=== PATIENT | female | born 1965 | race Caucasian/White ===

== ENCOUNTER 2020-07-11 14:03 | Outpatient (CLI) | payer OTHER, SELFPAY ==
--- NOTE | ~2020-07-11 | US_ITS ---
EXAMINATION: US thyroid DATE: 07/11/2020 14:40 INDICATION: Subclinical hyperthyroidism TECHNIQUE: Multiple ultrasound images of the thyroid were obtained. COMPARISON: None. FINDINGS: The right thyroid lobe measures 5.2 x 1.9 x 1.5 cm. The left thyroid lobe measures 7.4 x 2.9 x 3.7 c m. 3.7 cm solid heterogeneously isoechoic wider than tall nodule with smooth margins and with coarse internal calcifications in the left thyroid lobe (TI-RADS 4, moderately suspicious , FNA if >=1.5 cm , annual followup is >1 cm). There is a 1.7 cm wider than tall predominant solid isoechoic nodule wit h smooth margins and without echogenic foci in the left (TI-RADS 3, mildly suspicious , FNA if >=2.5 cm, annual followup is >1.5 cm). Wider than tall solid hypoechoic TI RADS 4 nodule with ill-defined m argins and without echogenic foci in the deep right thyroid lobe. There are several additional subcen timeter solid hypoechoic and anechoic cystic nodules throughout the left and right thyroid lobes. IMPRESSION: 1. Multinodular goiter. Recommend ultrasound-guided biopsy of the largest 3.7 cm TI RADS 4 left thyro id nodule. Reviewed, dictated and finalized at location A. RACT CHECKER IMPRESSION: 1. Multinodular goiter. Recommend ultrasound-guided biopsy of the largest 3.7 c m TI RADS 4 left thyroid nodule.
== END 2020-07-11 14:04 | disposition home or self-care (01) ==
PROVIDERS: PCP Family Medicine; Visit Provider Family Medicine
DX: E05.80 Other thyrotoxicosis without thyrotoxic crisis or storm (principal); E04.2 Nontoxic multinodular goiter
CPT/HCPCS: 76536

== ENCOUNTER 2020-07-21 12:48 | Outpatient (CLI) | payer OTHER, SELFPAY ==
--- NOTE | ~2020-07-21 | US_ITS ---
EXAMINATION: US FNA w image guidance DATE: 07/21/2020 15:56 INDICATION: Left thyroid nodule TECHNIQUE: A time-out was performed to verify the patient's name, date of , and procedure to be performed . The procedure and its benefits and risks were discussed with the patient. Risks specifically discus sed included bleeding and infection. The patient understood the risks and agreed to proceed. The neck was prepped and draped in the usual sterile manner. 4 mL 1% lidocaine was used for local anesthesia . 6 passes were made with a 25G needle into the lesion. Appropriate needle location was documented with continuous sonographic guidance. The specimens were passed to the engineering technologist in the room. A sterile bandage was applied. There were no immediate complications. FINDINGS: Grayscale ultrasound images demonstrate biopsy needles advanced into a 3.9 cm solid TI RADS 4 nodule at the inferior left thyroid. IMPRESSION: 1. Successful ultrasound-guided fine needle aspiration of a 3.9 cm TI RADS 4 left thyroid nodule. Reviewed, dictated and finalized at location A. ITAL ADMINISTRATOR IMPRESSION: 1. Successful ultrasound-guided fine needle aspiration of a 3.9 cm TI RADS 4 l eft thyroid nodule.
== END 2020-07-21 12:49 | disposition home or self-care (01) ==
LOC: ANHIMG 12:52
PROVIDERS: PCP Family Medicine; Visit Provider Family Medicine
DX: E04.1 Nontoxic single thyroid nodule (principal)
CPT/HCPCS: 10005; 88173; 88305

== ENCOUNTER 2020-07-22 16:57 | Outpatient (CLI) | payer OTHER, SELFPAY ==
--- NOTE | ~2020-07-22 | MM_ITS ---
EXAMINATION: MM screening [facility] BI w gustavo HISTORY: Screening mammogram TECHNIQUE: Craniocaudal and mediolateral oblique 3-D tomosynthesis images were obtained and synthetic 2-D images were generated. CAD analysis was submitted and interpreted. COMPARISON: 04/05/2019, 02/24/2015, 01/10/2014 BREAST PARENCHYMAL COMPOSITION: The breasts are almost entirely fatty. FINDINGS: There is no evidence of suspicious mass, calcification, or architectural distortion to sugg est malignancy in either breast. There has been no suspicious interval change. IMPRESSION: 1. No mammographic evidence of malignancy. 2. Recommend routine screening mammography in one year. BI-RADS Category 1: Negative Reviewed, dictated and finalized at location A. RLINE SUPERVISOR
== END 2020-07-22 16:58 | disposition home or self-care (01) ==
LOC: ANHIMG 17:01
PROVIDERS: PCP Family Medicine; Visit Provider Family Medicine
DX: Z12.31 Encounter for screening mammogram for malignant neoplasm of breast (principal)
CPT/HCPCS: 77063; 77067

== ENCOUNTER 2021-03-21 13:31 | Outpatient (CLI) | payer OTHER, SELFPAY | END 2021-03-21 13:32 | disposition home or self-care (01) | LOC: ANHLAB 13:33 | PROVIDERS: PCP Family Medicine; Visit Provider Family Medicine | DX: K52.9 Noninfective gastroenteritis and colitis, unspecified (principal) | CPT/HCPCS: 87177; 87209; 87324; 89055 ==

== ENCOUNTER 2021-04-29 17:00 | Outpatient (RCR) | payer OTHER, SELFPAY ==
--- NOTE | 2021-03-30 15:00 | PTOPEVAL ---
PHYSICAL THERAPY EVALUATION AND PLAN OF CARE Thank you for referring Rachael Dupont to [facility].? The patient is scheduled to be seen for therapy? 2x/week for 4 weeks. Please review, sign, date and return this plan of care SUSAN. I agree with and certify that the following plan of care is medically necessary. Referring Physician Date Evaluation Outpatient Past Medical History Endocrine History Hx Diabetes Yes Diagnosis left TKA Onset 02/24/21 Subjective Information Rachael is here today 4 weeks s/p Query Text:As Reported By Patient/ left TKA. She states she is Family doing well and that she saw the doctor this morning and he is pleased. She did have a small infection in the infection that is getting better - she is done with antibiotics. Comes into clinic without a cane or walker. States that she has a lot of night pain. States that when she had home therapy she was bending the knee farther than now and she states that she has more swelling now than a couple weeks ago. Self Report Pain Assessment Left Knee(s) Reported Pain Level 5 Pain Description Aching Lowest Pain Intensity 5 Greatest Pain Intensity 10 Pain Score Pain Score 5: Self Report Interventions Used Interventions Used By Clinicians Exercise Pain Relief Interventions Used By Hope Norton Patient Lower Extremity Range of Motion Knee Range of Motion Left Knee Flexion Range of Motion - Active 97 Knee Extension Range of Motion - Active 0 Query Text: Lower Extremity Muscle Strength Testing Hip Strength Left Hip Flexion Strength 4+ Good + Hip Extension Strength 3 Fair Hip Abduction Strength 2+ Poor + Knee Strength Left Knee Extension Strength 3+ Fair + Knee Strength Comments fair isolated quad set Muscle Length Testing Muscle Length Testing Left Hamstring Length -25 Query Text:(90 - 90 Position) Right Hamstring Length -25 Query Text:(90 - 90 Position) Palpation Assessment Palpation Palpation quadriceps is tender to palpate left quadriceps and ITB Gait Assessment Gait Assessment Ambulation Assistive Devices None Weight Bearing Status - Left As Tolerated Weight Bearing Status - Right
--- NOTE | 2021-04-14 12:52 | PCPTNOTE ---
Patient called & cancelled scheduled appointment this date due to being sick.
--- NOTE | 2021-04-17 15:32 | PCPTNOTE ---
Patient called & cancelled scheduled appointment this date due to not feeling well.
--- NOTE | 2021-04-20 15:01 | PCPTNOTE ---
Patient called & cancelled scheduled appointment this date due to having a zoom meeting.
--- NOTE | 2021-04-29 17:35 | PTOPEVAL ---
PHYSICAL THERAPY DISCHARGE NOTE Thank you for referring Rachael Dupont to [facility].? Please review, sign, date and return this plan of care SUSAN. I agree with and certify that the following plan of care is medically necessary. Referring Physician Date Discharge Diagnosis left TKA Onset 02/24/21 Subjective Information Rachael is here today 9 weeks s/p Query Text:As Reported By Patient/ left TKA. She states she is Family doing well. Her knee feels really full. She was able to get up off the floor using the couch and going through half kneeling. Self Report Pain Assessment Left Knee(s) Reported Pain Level 1 Pain Description Soreness Pain Frequency Acute Pain Aggravating Factors Bending Pain Behaviors None Pain Score Pain Score 1: Self Report Interventions Used Interventions Used By Clinicians Exercise,Ice Pain Relief Interventions Used By Elevation,Ice Patient Lower Extremity Range of Motion Knee Range of Motion Left Knee Flexion Range of Motion - Active 115 Knee Extension Range of Motion - Active 0 Query Text: Lower Extremity Muscle Strength Testing Hip Strength Left Hip Flexion Strength 4+ Good + Hip Extension Strength 4- Good - Hip Abduction Strength 3- Fair - Knee Strength Left Knee Flexion Strength 4+ Good + Knee Extension Strength 4+ Good + Stair Climbing Assessment Stair Climbing Assessment Stair Climbing Assistive Devices Railings Number of Steps Climbed (Steps) 4 Number of Repetitions (Repetitions) 2 Technique Alternating Steps Stair Climbing Ability Independent General Exercise General Exercises Side Left Exercise Location Knee Exercise Type Active,Stretching Exercise Description reviewed HEP to encourage Query Text:Record Sets, Reps, strength and ROM of the left Resistance, and Position knee; instructed in HEP as PT Clinical Summary Rachael is a 55 yo female 2 months s/p left TKA. She has met her ROM goals and she performs all functional tasks safely and independently. She does her exercises every day and home and is motivated to continue them. We will d/c PT at this time. PT Services Indicated No Rehabilitation Potential Good Potential Bar
== END 2021-05-01 10:45 | disposition home or self-care (01) ==
LOC: ANHPT 17:00
PROVIDERS: PCP Family Medicine
DX: Z47.1 Aftercare following joint replacement surgery (principal); Z96.652 Presence of left artificial knee joint
CPT/HCPCS: 97110; 97140; 97163

== ENCOUNTER 2021-06-04 20:06 | Emergency (ER) | payer OTHER, SELFPAY ==
--- NOTE | ~2021-06-04 | XR_ITS ---
EXAMINATION: XR hip BI 2V w AP pelvis DATE: 06/05/2021 02:04 INDICATION: Bilateral hip pain after fall TECHNIQUE: AP view the pelvis and two views of each hip were obtained. COMPARISON: None. FINDINGS: Bone alignment is normal. There is no fracture. There is mild osteoarthritis of the hips. P hleboliths are noted in the pelvis. An IUD is also seen in the pelvis. IMPRESSION: 1. No acute osseous abnormality. Reviewed, dictated and finalized at location A. D COIL WINDER
--- NOTE | ~2021-06-04 | XR_ITS ---
EXAMINATION: XR lumbar spine 2-3V DATE: 06/05/2021 02:05 INDICATION: Low back pain TECHNIQUE: Anteroposterior and lateral views of the lumbar spine, and cone-down lateral view of the l umbosacral junction were obtained. COMPARISON: None. FINDINGS: There is no fracture, dislocation, or subluxation. The vertebral body heights are maintaine d. There is mild loss of intervertebral disc space height at L1-2, L4-5, and L5-S1. Small degenerativ e osteophytes project from the anterior endplates of multiple vertebral bodies. There is moderate fac et osteoarthritis of the lower lumbar spine. An IUD is noted. There are phleboliths of the pelvis. IMPRESSION: 1. Mild lumbar spondylosis without acute findings. Reviewed, dictated and finalized at location A. ICAL GENETICIST
--- NOTE | ~2021-06-04 | XR_ITS ---
EXAMINATION: XR ankle LT min 3V DATE: 06/05/2021 02:03 INDICATION: Left ankle pain TECHNIQUE: Anteroposterior, lateral, mortise, and additional oblique view of the ankle were obtained. COMPARISON: None. FINDINGS: Bone alignment is normal. There is no fracture. There is mild osteoarthritis of the ankle a nd midfoot. A plantar calcaneal enthesophyte is noted. IMPRESSION: 1. No acute osseous abnormality. Reviewed, dictated and finalized at location A. MER PURIFICATION OPERATOR
--- NOTE | ~2021-06-04 | XR_ITS ---
EXAMINATION: XR shoulder RT min 2V INDICATION: Right shoulder pain TECHNIQUE: Four views of the right shoulder are submitted. COMPARISON: None FINDINGS: Normal alignment. No fracture there is mild osteoarthritis of the glenohumeral and acromioc lavicular joints.. Glenohumeral and acromioclavicular joint spaces are normal. Soft tissues are unrem arkable. IMPRESSION: 1. No acute osseous abnormality. Reviewed, dictated and finalized at location A. USEMENT EQUIPMENT OPERATOR
--- NOTE | ~2021-06-04 | XR_ITS ---
EXAMINATION: XR shoulder LT min 2V INDICATION: Left shoulder pain TECHNIQUE: Four views of the left shoulder are submitted. COMPARISON: None FINDINGS: Normal alignment. No fracture. Glenohumeral and acromioclavicular joint spaces are normal. Soft tissues are unremarkable. IMPRESSION: 1. No acute osseous abnormality. Reviewed, dictated and finalized at location A. TOR FUELING SUPERVISOR
--- NOTE | ~2021-06-04 | XR_ITS ---
EXAMINATION: XR knee LT 3V DATE: 06/05/2021 02:05 INDICATION: Left knee pain TECHNIQUE: Three views of the left knee were obtained. COMPARISON: 11/12/2015 FINDINGS: There are changes of interval total knee arthroplasty. No fracture is identified. There is a small knee joint effusion. A calcified loose body is also noted. Soft tissues are unremarkable. IMPRESSION: 1. Changes of interval total knee arthroplasty without acute osseous abnormality. Small joint effusio n. Reviewed, dictated and finalized at location A. NEYMAN PLUMBER IMPRESSION: 1. Changes of interval total knee arthroplasty without acute osseous abnormalit y. Small joint effusion.
--- NOTE | ~2021-06-04 | CT_ITS ---
EXAMINATION: CT brain wo con, CT cervical spine wo con EXAM DATE: 06/05/2021 02:04 INDICATION: Fall, left-sided head injury. TECHNIQUE: Spiral CT of the head was performed without contrast. Axial, coronal and sagittal images were reviewed. Spiral CT of the cervical spine was performed without contrast. Axial images were rev iewed. Coronal and sagittal reformatted images were also reviewed. The dose-length product (DLP) fo r this examination was 681.00 (accession [id number]), 548.85 (accession [id number]) mGy-cm. The exposure was tailored according to patient size, and iterative reconstruction (ASIR) was used as additional dose reduction technique. There is no prior study for comparison. FINDINGS: HEAD CT: There is no acute intraparenchymal hemorrhage. No evidence of intraparenchymal brain mass l esion. No evidence of acute infarction. There is no mass effect or midline shift. There is no obstru ctive hydrocephalus suspected. There are no extra-axial collections. There are no acute calvarial f ractures. The orbits are unremarkable. Soft tissue is unremarkable. The visualized sinuses and mas toid air cells are well aerated. CERVICAL CT: Multinodular goiter. There is no evidence of acute cervical fracture. The odontoid proc ess is intact. Pre-dens space is normal. Prevertebral soft tissue is normal. There are no soft tis antonella abnormalities identified. There is no disc space widening or traumatic vertebral body subluxatio n suspected. Advanced upper cervical facet arthropathy. Moderate cervical disc disease. Mild emphyse ma. A detailed level by level evaluation of spondylosis can be added as addendum if requested. IMPRESSION: 1. No acute intracranial findings or cervical fracture. 2. Cervical spondylosis. Reviewed, dictated and finalized at location G. ELET MAKER NOVELTY IMPRESSION: 1. No acute intracranial findings or cervical fracture. 2. Cervical spondylosis.
--- NOTE | ~2021-06-04 | XR_ITS ---
EXAMINATION: XR elbow LT min 3V DATE: 06/05/2021 02:03 INDICATION: Left elbow pain TECHNIQUE: Anteroposterior, two oblique and lateral views of the left elbow were obtained. COMPARISON: None. FINDINGS: Alignment is normal. No fracture or joint effusion. Joint spaces are normal. There is mild osteoarthritis. Soft tissues are unremarkable. IMPRESSION: 1. No acute osseous abnormality. Reviewed, dictated and finalized at location A. R AEROBICS INSTRUCTOR
--- NOTE | ~2021-06-04 | XR_ITS ---
EXAMINATION: XR hand LT min 3V INDICATION: Left hand pain TECHNIQUE: Three views of the left hand are obtained. COMPARISON: None available FINDINGS: There is no fracture, dislocation, or subluxation. There is mild osteoarthritis at several interphalangeal joints. The soft tissues are unremarkable. IMPRESSION: 1. No acute osseous abnormality. Reviewed, dictated and finalized at location A. GENCY SERVICES DISPATCHER
[2021-06-04 20:23] VITALS: BP 133/72; PULSE 87; RESP 17; TEMP 36.2; O2SAT 100
[2021-06-04 22:24] VITALS: BP 113/64; PULSE 86; TEMP 36.8; O2SAT 98
[2021-06-05 01:10] VITALS: BP 111/58; PULSE 99; RESP 18; TEMP 36.2; O2SAT 99
--- NOTE | 2021-06-05 02:29 | ED.GENADULT ---
HPI - General Adult General Chief complaint: Fall Stated complaint: fall with knee pain Time Seen by Provider: 06/05/21 01:12 History of Present Illness HPI narrative: Patient 56-year-old female presents the emergency department with chief complaint of pain over her entire body patient reports she was in a local store ripped over a floor mat and landed on her left side. The patient reports no loss of consciousness but did report that she struck her head reports she has pain in her neck back all on the left side of her body and her arms and legs and also reports pain in her right extremities. The patient states is able to move everything denies deformity denies laceration. Related Data Allergies Allergy/AdvReac Type Severity Reaction Status Date / Time adhesive Allergy Mild Other Verified 06/05/21 01:15 cyclobenzaprine Allergy Unknown RESTLESS Verified 06/05/21 01:15 LEGS Review of Systems Review of Systems: A 10 system review of systems was completed on the patient and is negative except for what is stated in the HPI. Nursing and ancillary documentation was reviewed. Exam Narrative: GENERAL: Well-appearing, well-nourished, and in no acute distress. HEAD: Normocephalic, atraumatic. EYES: PERRLA and EOMI. ENT: Nares clear, no rhinorrhea or epistaxis. Mucous membranes moist. NECK: Supple. There is tenderness to palpation the midline cervical spine CHEST: Clear to auscultation. No respiratory distress. HEART: Regular rate and rhythm. No murmur heard. Normal peripheral pulses. ABDOMEN: Soft, nontender, nondistended, normal active bowel sounds. EXTREMITIES: Normal range of motion. No edema. All extremities are tender to palpation SKIN: Warm, dry, no rash. NEURO: No focal deficits. Alert and oriented x3. PSYCH: Normal mood and affect. Course Course Emergency Course: Left elbow no evidence of fracture Left knee no evidence of fracture Left hand no evidence of fracture Right shoulder no evidence of fracture Lumbar spine no evidence of fracture Hip bilateral no evidence of fracture Ankle left no evidence of fracture Left shoulder no evidence of fracture CT cervical spine negative CT head negative Vital Signs Vital signs: Vital Signs Temperature 36.2 C L 06/04/21 20:23 Pulse Rate 87 06/04/21 20:23 Respiratory Rate 17 06/04/21 20:23 Blood Pressure 133/72 06/04/21 20:23 Pulse Oximetry 100 06/04/21 20:23 Temperature 36.2 C L 06/05/21 01:10 Pulse Rate 88 06/05/21 02:36 Respiratory Rate 16 06/05/21 02:36 Blood Pressure 118/46 L 06/05/21 02:36 Pulse Oximetry 98 06/05/21 02:36 Medical Decision Making Vital Signs Vital Signs: Vital Signs Temperature 36.2 C L 06/04/21 20:23 Pulse Rate 87 06/04/21 20:23 Respiratory Rate 17 06/04/21 20:23 Blood Pressure 133/72 06/04/21 20:23 Pulse Oximetry 100 06/04/21 20:23 Temperature 36.2 C L 06/05/21 01:10 Pulse Rate 88 06/05/21 02:36 Respiratory Rate 16 06/05/21 02:36 Blood Pressure 118/46 L 06/05/21 02:36 Pulse Oximetry 98 06/05/21 02:36 Discharge Plan Discharge Clinical Impression: Fall from ground level Contusion of left upper extremity Qualifiers: Encounter type: initial encounter Qualified Code(s): S40.022A - Contusion of left upper arm, initial encounter Contusion of left lower limb Qualifiers: Encounter type: initial encounter Qualified Code(s): S80.12XA - Contusion of left lower leg, initial encounter Head injury Qualifiers: Encounter type: initial encounter Qualified Code(s): S09.90XA - Unspecified injury of head, initial encounter Patient Disposition: Home, Self-Care Condition: Stable Instructions: Antibiotic Form, Concussion (ED), Head Injury (ED) Follow-up/Referrals: Bradley,Emanuel Singleton MD [Primary Care Provider] - Time of Disposition: 03:20
[2021-06-05 02:36] VITALS: BP 118/46; PULSE 88; RESP 16; O2SAT 98
[2021-06-05 03:52] VITALS: BP 150/91; PULSE 103; RESP 16; O2SAT 100
== END 2021-06-05 03:54 | disposition home or self-care (01) ==
PROVIDERS: Emergency Provider Emergency Medicine; PCP Family Medicine
DX: S09.90XA Unspecified injury of head, initial encounter (principal); S80.12XA Contusion of left lower leg, initial encounter; S40.022A Contusion of left upper arm, initial encounter; M47.812 Spondylosis without myelopathy or radiculopathy, cervical region; Z96.652 Presence of left artificial knee joint; M47.816 Spondylosis without myelopathy or radiculopathy, lumbar region; W18.09XA Striking against other object with subsequent fall, initial encounter
CPT/HCPCS: 70450; 72100; 72125; 73030; 73080; 73130; 73521; 73562; 73610; 99284

== ENCOUNTER 2023-04-15 17:37 | Emergency (ER) | payer OTHER, SELFPAY ==
[2023-04-15 18:02] VITALS: BP 134/66; PULSE 88; RESP 18; TEMP 36.4; O2SAT 99
--- NOTE | 2023-04-15 18:16 | ED.URI ---
HPI - URI/Sore Throat General Chief Complaint: Upper Respiratory Infection Stated Complaint: Sore Throat, Cough, Congestion Time Seen by Provider: 04/15/23 18:16 Source: patient Mode of arrival: ambulatory Limitations: no limitations History of Present Illness HPI Narrative: 58-year-old female presents with complaint of nasal congestion, runny nose, sore throat and cough starting yesterday. Afebrile. Positive chills. Denies body aches. No chest pain or shortness of breath. All systems reviewed and negative except as noted above. Related Data Home Medications Medication Instructions Recorded Confirmed atorvastatin 20 mg tablet 20 mg PO DAILY 04/15/23 04/15/23 empagliflozin 25 mg tablet 25 mg PO DAILY 04/15/23 04/15/23 (Jardiance) fluoxetine 20 mg capsule 20 mg PO DAILY 04/15/23 04/15/23 hydrocodone 10 mg-acetaminophen 1 tablet PO QID 04/15/23 04/15/23 325 mg tablet levonorgestrel 21 mcg/24 hours (8 See Rx Instructions .Route .COMPLEX 04/15/23 04/15/23 yrs) 52 mg intrauterine device (Mirena) lisinopril 2.5 mg tablet 2.5 mg PO DAILY 04/15/23 04/15/23 metformin 1,000 mg tablet 1,000 mg PO BID 04/15/23 04/15/23 phentermine 37.5 mg capsule 37.5 mg PO DAILY 04/15/23 04/15/23 pregabalin 150 mg capsule 150 mg PO DAILY 04/15/23 04/15/23 ropinirole 1 mg tablet 1 mg PO TID 04/15/23 04/15/23 Allergies Allergy/AdvReac Type Severity Reaction Status Date / Time cyclobenzaprine AdvReac Intermediate RESTLESS Verified 04/15/23 17:42 LEGS adhesive AdvReac Mild Blister Verified 04/15/23 17:42 Review of Systems Review of Systems: CONSTITUTIONAL: Denies fever, chills, or sweats. EYES: Denies visual changes, redness, or discharge. ENT: Reports rhinorrhea, congestion, sore throat. Denies otalgia. CARDIOVASCULAR: Denies chest pain, palpitations, or edema. RESPIRATORY: reports cough. Denies dyspnea. GASTROINTESTINAL: Denies abdominal pain, nausea, vomiting, or diarrhea. GENITOURINARY: Denies dysuria or hematuria. SKIN: Denies rash or itching. MUSCULOSKELETAL: Denies back pain, joint pain, or myalgia. NEUROLOGIC: Denies headache, numbness, or weakness. PSYCHIATRIC: Denies anxiety or depression. All other systems reviewed are negative, except as documented in HPI. PMFSH Comments At time of signature, agree with nursing past medical, surgical, social and family history. There is no relevant family history pertinent to the presenting complaint. Exam Narrative: GENERAL: This is a well-nourished, well-developed patient, in no apparent distress. HEAD: normocephalic, atraumatic. EYES: PERRL. Sclera clear/white. Vision is grossly intact. EARS: External ears normal, auditory canals clear and without drainage, TMs normal without perforation. Hearing grossly intact. NOSE: External nose normal with no obvious nasal discharge, nares without redness, no rhinorrhea. THROAT: Mucous membranes moist, erythema to posterior pharynx without swelling. No exudates. NECK: Neck supple, non-tender without lymphadenopathy, masses or thyromegaly. CARDIOVASCULAR: Regular rate and rhythm without murmurs, gallops, or rubs. RESPIRATORY: Clear to auscultation. Breath sounds equal bilaterally. No wheezes, rales, or rhonchi. SKIN: warm, Dry, intact with no suspicious lesions or rash, good texture and turgor. NEURO: awake, alert, and oriented to person, place and time. There were no obvious focal neurologic abnormalities. EXTREMITIES: No joint tenderness, effusion, or edema noted. Course Course Level of Care: Express Care Visit Vital Signs Vital signs: Vital Signs Temperature 36.4 C L 04/15/23 18:02 Pulse Rate 88 04/15/23 18:02 Respiratory Rate 18 04/15/23 18:02 Blood Pressure 134/66 04/15/23 18:02 Pulse Oximetry 99 04/15/23 18:02 Oxygen Delivery Room Air 04/15/23 18:02 Temperature 36.4 C L 04/15/23 18:02 Pulse Rate 88 04/15/23 18:02 Respiratory Rate 18 04/15/23 18:02 Blood Pressure 134/66
== END 2023-04-15 18:43 | disposition home or self-care (01) ==
PROVIDERS: Emergency Provider Nurse Practitioner Family; PCP Family Medicine
DX: J06.9 Acute upper respiratory infection, unspecified (principal); R05.9 Cough, unspecified; Z20.822 Contact with and (suspected) exposure to COVID-19; E78.00 Pure hypercholesterolemia, unspecified; I10 Essential (primary) hypertension; Z98.84 Bariatric surgery status; K21.9 Gastro-esophageal reflux disease without esophagitis; M17.0 Bilateral primary osteoarthritis of knee; M79.7 Fibromyalgia; G25.81 Restless legs syndrome; E11.9 Type 2 diabetes mellitus without complications; Z79.84 Long term (current) use of oral hypoglycemic drugs
CPT/HCPCS: 87081; 87426; 87880; 99213; C9803; G0463

== ENCOUNTER 2023-05-29 12:58 | Emergency (ER) | payer OTHER, SELFPAY ==
--- NOTE | ~2023-05-29 | XR_ITS ---
EXAM: XR foot RT min 3V DATE: 05/29/2023 14:50 HISTORY: trauma,hit foot on furniture/most pain 5th toe 5th metatasal . COMPARISON: None available. FINDINGS: Normal mineralization. Oblique, nondisplaced, extra-articular fracture of the proximal rig ht fifth phalange, lateral view limited by overlying anatomy. No lytic or blastic lesion. Mild scatte red degenerative changes. Achilles and plantar enthesopathy No erosion or periosteal change. Soft tis antonella swelling over the fracture site. IMPRESSION: Oblique, nondisplaced, extra articular fracture of the proximal right fifth phalange. Reviewed, dictated and finalized at location K. 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
[2023-05-29 14:30] VITALS: BP 137/54; PULSE 93; RESP 18; TEMP 35.9; O2SAT 100
--- NOTE | 2023-05-29 15:30 | ED.GENADULT ---
HPI - General Adult General Chief complaint: Extremity Injury, Lower Stated complaint: Rt Foot Pain Source: patient Mode of arrival: ambulatory Limitations: no limitations History of Present Illness HPI narrative: Patient presents for evaluation of an injury to the right foot. She states she bumped her right foot into a couch two nights ago. She has experienced pain, swelling and redness in the 5th digit of that foot since that time. She rates her pain as 10/10 in severity. She is able to bear weight and walking actually some what improves her pain. No paresthesias or loss of ROM. She is diabetic. She does not have underlying neuropathy. She is adherent to her metformin and jardiance. She receives routine prescriptions for hydrocodone to treat her fibromyalgia. Related Data Home Medications Medication Instructions Recorded Confirmed atorvastatin 20 mg tablet 20 mg PO DAILY 04/15/23 05/29/23 empagliflozin 25 mg tablet 25 mg PO DAILY 04/15/23 05/29/23 (Jardiance) fluoxetine 20 mg capsule 20 mg PO DAILY 04/15/23 05/29/23 hydrocodone 10 mg-acetaminophen 1 tablet PO QID 04/15/23 05/29/23 325 mg tablet levonorgestrel 21 mcg/24 hours (8 See Rx Instructions .Route .COMPLEX 04/15/23 05/29/23 yrs) 52 mg intrauterine device (Mirena) lisinopril 2.5 mg tablet 2.5 mg PO DAILY 04/15/23 05/29/23 metformin 1,000 mg tablet 1,000 mg PO BID 04/15/23 05/29/23 phentermine 37.5 mg capsule 37.5 mg PO DAILY 04/15/23 05/29/23 pregabalin 150 mg capsule 150 mg PO DAILY 04/15/23 05/29/23 ropinirole 1 mg tablet 1 mg PO TID 04/15/23 05/29/23 Allergies Allergy/AdvReac Type Severity Reaction Status Date / Time cyclobenzaprine AdvReac Intermediate RESTLESS Verified 05/29/23 14:34 LEGS adhesive AdvReac Mild Blister Verified 05/29/23 14:34 Review of Systems Review of Systems: CONSTITUTIONAL: Denies fever, chills, or sweats. EYES: Denies visual changes, redness, or discharge. ENT: Denies rhinorrhea, congestion, sore throat, or otalgia. CARDIOVASCULAR: Denies chest pain, palpitations, or edema. RESPIRATORY: Denies cough or dyspnea. GASTROINTESTINAL: Denies abdominal pain, nausea, vomiting, or diarrhea. GENITOURINARY: Denies dysuria or hematuria. SKIN: Reports redness in fifth digit of right foot. MUSCULOSKELETAL:Reports pain and swelling in 5th digit of right foot NEUROLOGIC: Denies headache, numbness, dizziness, or weakness. PSYCHIATRIC: Denies anxiety or depression. [facility] Past Medical History Medical History Diabetes Fibromyalgia Surgical History Surgical History No pertinent past surgical history Family History Family History Mother Family history non-contributory Social History Social History Gender identity (if verbalized by the patient): Female Spiritual care concerns: No Exam Narrative: GENERAL: Well-appearing, well-nourished, and in no acute distress. HEAD: Normocephalic, atraumatic. EYES: PERRLA and EOMI. ENT: Nares clear, no rhinorrhea or epistaxis. Mucous membranes moist. Oropharynx without tonsillar hypertrophy exudate or other lesions. Bilateral TMs pearly saba nonbulging NECK: Supple. No adenopathy or masses. No carotid bruits or JVD CHEST: Clear to auscultation. No respiratory distress. No wheezes rales or rhonchi HEART: Regular rate and rhythm. No murmur heard. Normal peripheral pulses. ABDOMEN: Soft, nontender, nondistended, normal active bowel sounds. EXTREMITIES: There is swelling noted to fifth digit of right foot. Fifth digit of right foot is tender to palpation. SKIN: There is erythema to fifth digit of right foot. Skin is warm, dry, no rash. NEURO: No focal deficits. Alert and oriented x3. PSYCH: Normal mood and affect. Course Cou
== END 2023-05-29 15:38 | disposition home or self-care (01) ==
PROVIDERS: Emergency Provider Nurse Practitioner; PCP Family Medicine
DX: S92.514A Nondisplaced fracture of proximal phalanx of right lesser toe(s), initial encounter for closed fracture (principal); W22.03XA Walked into furniture, initial encounter; E11.9 Type 2 diabetes mellitus without complications
CPT/HCPCS: 73630; 99214; G0463

== ENCOUNTER 2023-06-14 20:45 | Emergency (ER) | payer OTHER, SELFPAY ==
--- NOTE | ~2023-06-14 | CT_ITS ---
Non-contrast CT scan of the Pelvis Clinical indication: Sacral pain, trauma Technique: 2.5 mm axial scans were obtained through the pelvis without intravenous or oral contrast. Dose reduction technique was used on this scan by utilizing automated exposure control and iterative reconstruction technique. The dose-length product (DLP) was 1019.01 mGy-cm. Findings: Urinary bladder unremarkable. No pelvic mass seen. No ascites. Visualized bowel loops are u nremarkable. No pelvic lymphadenopathy identified. No fracture or dislocation seen. Osseous alignment is anatomic. There is moderate facet arthropathy a t L4-L5 and L5-S1. Impression: No acute abnormality seen. Facet arthropathy at L4-L5 and L5-S1. Reviewed, dictated and finalized at location . 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 Facet arthropathy at L4-L5 and L5-S1.
--- NOTE | ~2023-06-14 | XR_ITS ---
EXAMINATION: XR sacrum coccyx min 2V DATE: 06/14/2023 21:20 INDICATION: Sacrococcygeal pain. Fall. TECHNIQUE: 3 views of the sacrum and coccyx were obtained. COMPARISON: Pelvis and hip radiograph 06/05/21 FINDINGS: There is 3 mm anterolisthesis of L4 on L5. There is mild lumbar spondylosis. There is mild osteoarthritis of the hips. There is mild osteoarthritis of the sacroiliac joints. IMPRESSION: 1. No fracture. Reviewed, dictated and finalized at location E. NEER PROCESS IMPRESSION: 1. No fracture.
[2023-06-14 20:55] VITALS: BP 129/62; PULSE 101; RESP 18; TEMP 36.7; O2SAT 100
[2023-06-15 00:15] VITALS: BP 119/72; PULSE 95; RESP 17; O2SAT 100
--- NOTE | 2023-06-15 00:25 | ED.FALL ---
HPI - Fall General Chief Complaint: Fall Stated Complaint: fall, tailbone pain Time Seen by Provider: 06/14/23 23:28 Source: patient Limitations: no limitations History of Present Illness HPI Narrative: Patient is a 58-year-old female presents to the emergency department complaining of a fall with resultant pain in her tailbone. Patient states she fell around 2:00 p.m. today while getting into her truck she stepped on the railing and then slipped and fell backwards landing on her buttock and hitting the back of her head. Patient denies loss of consciousness or use of blood thinners. Patient denies any significant pain in her head. Patient states that she is having pain in her tailbone since the injury for which she took a [place] is only a slight relief. Patient denies urinary incontinence, stool incontinence, alcohol use, illicit drug use, nausea, vomiting, numbness, weakness, paresthesias. Patient admits to being ambulatory since the event with some discomfort in her sacrum when she ambulates. Related Data Home Medications Medication Instructions Recorded Confirmed atorvastatin 20 mg tablet 20 mg PO DAILY 04/15/23 05/29/23 empagliflozin 25 mg tablet 25 mg PO DAILY 04/15/23 05/29/23 (Jardiance) fluoxetine 20 mg capsule 20 mg PO DAILY 04/15/23 05/29/23 hydrocodone 10 mg-acetaminophen 1 tablet PO QID 04/15/23 05/29/23 325 mg tablet levonorgestrel 21 mcg/24 hours (8 See Rx Instructions .Route .COMPLEX 04/15/23 05/29/23 yrs) 52 mg intrauterine device (Mirena) lisinopril 2.5 mg tablet 2.5 mg PO DAILY 04/15/23 05/29/23 metformin 1,000 mg tablet 1,000 mg PO BID 04/15/23 05/29/23 phentermine 37.5 mg capsule 37.5 mg PO DAILY 04/15/23 05/29/23 pregabalin 150 mg capsule 150 mg PO DAILY 04/15/23 05/29/23 ropinirole 1 mg tablet 1 mg PO TID 04/15/23 05/29/23 Allergies Allergy/AdvReac Type Severity Reaction Status Date / Time cyclobenzaprine AdvReac Intermediate RESTLESS Verified 06/14/23 21:03 LEGS adhesive AdvReac Mild Blister Verified 06/14/23 21:03 Review of Systems Review of Systems: A 10 system review of systems was completed on the patient and is negative except for what is stated in the HPI. Nursing and ancillary documentation was reviewed. PMFSH Past Medical History Medical History Diabetes Fibromyalgia Surgical History Surgical History No pertinent past surgical history Family History Family History Mother Family history non-contributory Social History Social History Gender identity (if verbalized by the patient): Female Spiritual care concerns: No Comments At time of signature, I have reviewed and agree with nursing past medical, surgical, social and family history unless otherwise noted. Please see the nursing chart for further information. There is no relevant family history pertinent to the presenting complaint. Exam Narrative: CONST: No acute distress. Well nourished. HENMT: Head is normocephalic and atraumatic. Moist mucous membranes. No posterior oropharynx erythema. EYES: No conjunctival icterus, injection, or pallor. PERRL. NECK: No meningeal signs. RESP: Able to speak in full sentences. Normal respiratory effort. CTAB. CARDIO: Regular rate. Regular rhythm. 2+ DP and radial pulses bilaterally. GI: Nondistended. No tenderness to palpation. Soft. : No CVA tenderness to palpation. SKIN: No rashes or lesions noted on exposed skin. NEURO: Oriented x3. Moves all extremities. No focal neurological deficits. EXTREM/MSK/BACK: No pedal edema. Mild tenderness to palpation over the midline of the sacrum without overlying skin changes. No midline lumbar or thoracic or cervical vertebral tenderness palpation or step-offs. PSYCH: Normal affect
[2023-06-15] MEDS: KETOROLAC 30 MG/ML VIAL (*BKC) 15 MG IM (01:13)
[2023-06-15 02:00] VITALS: BP 119/78; PULSE 90; RESP 16; O2SAT 100
[2023-06-15 04:45] VITALS: BP 122/79; PULSE 94; RESP 18; O2SAT 100
== END 2023-06-15 04:48 | disposition home or self-care (01) ==
PROVIDERS: Emergency Provider Student in an Organized Health Care Education/Training Program; PCP Family Medicine
DX: S30.0XXA Contusion of lower back and pelvis, initial encounter (principal); E11.9 Type 2 diabetes mellitus without complications; M79.7 Fibromyalgia; Z97.5 Presence of (intrauterine) contraceptive device; Z79.84 Long term (current) use of oral hypoglycemic drugs; W17.89XA Other fall from one level to another, initial encounter
CPT/HCPCS: 72192; 72220; 96372; 99284; J1885

== ENCOUNTER 2023-09-19 15:30 | Emergency (ER) | payer OTHER, SELFPAY ==
[2023-09-19 15:45] VITALS: BP 116/55; PULSE 70; RESP 18; TEMP 36.7; O2SAT 98
[2023-09-19 15:47] VITALS: BP 116/55; PULSE 70; RESP 18; TEMP 36.7; O2SAT 98
--- NOTE | 2023-09-19 15:54 | ED.URI ---
HPI - URI/Sore Throat General Chief Complaint: Upper Respiratory Infection Stated Complaint: Upper Respiratory Time Seen by Provider: 09/19/23 15:54 Source: patient and RN notes reviewed Mode of arrival: ambulatory Limitations: no limitations History of Present Illness HPI Narrative: 58-year-old female presents with concern for sinus pain and pressure, swollen glands, sore throat, headache, cough and fatigue that started yesterday. She has taken cold medicine without relief. She denies fever. Reports her grandchild at similar symptoms recently was diagnosed with a virus MD elicited complaint: cough and sinus pain Related Data Home Medications Medication Instructions Recorded Confirmed atorvastatin 20 mg tablet 20 mg PO DAILY 04/15/23 09/19/23 empagliflozin 25 mg tablet 25 mg PO DAILY 04/15/23 09/19/23 (Jardiance) fluoxetine 20 mg capsule 20 mg PO DAILY 04/15/23 09/19/23 hydrocodone 10 mg-acetaminophen 1 tablet PO QID 04/15/23 09/19/23 325 mg tablet lisinopril 2.5 mg tablet 2.5 mg PO DAILY 04/15/23 09/19/23 metformin 1,000 mg tablet 1,000 mg PO BID 04/15/23 09/19/23 phentermine 37.5 mg capsule 37.5 mg PO DAILY 04/15/23 09/19/23 pregabalin 150 mg capsule 150 mg PO DAILY 04/15/23 09/19/23 ropinirole 1 mg tablet 1 mg PO TID 04/15/23 09/19/23 Allergies Allergy/AdvReac Type Severity Reaction Status Date / Time cyclobenzaprine AdvReac Intermediate RESTLESS Verified 09/19/23 15:45 LEGS adhesive AdvReac Mild Blister Verified 09/19/23 15:45 Review of Systems Review of Systems: CONSTITUTIONAL: Report malaise. Denies chills, sweats, or fever. EYES: Denies visual changes, redness, or discharge. ENT: Reports rhinorrhea, congestion, sinus pain, otalgia and sore throat. CARDIOVASCULAR: Denies chest pain, palpitations, or edema. RESPIRATORY: Reports cough. Denies dyspnea. GASTROINTESTINAL: Denies abdominal pain, nausea, vomiting, diarrhea SKIN: Denies rash or itching. MUSCULOSKELETAL: Denies myalgia. NEUROLOGIC: Reports headache. All systems reviewed & are unremarkable except as noted in HPI and below PMFSH Past Medical History Medical History Diabetes Fibromyalgia Surgical History Surgical History No pertinent past surgical history Family History Family History Mother Family history non-contributory Social History Social History Gender identity (if verbalized by the patient): Female Spiritual care concerns: No Comments At time of signature, agree with nursing past medical, surgical, social and family history. There is no relevant family history pertinent to the presenting complaint Exam Narrative: GENERAL: Well-appearing, well-nourished, and in no acute distress. HEAD: Normocephalic EYES: PERRLA, conjunctivae clear ENT: Nares clear, turbinates edematous and erythematous, clear discharge. Mucous membranes moist. TM pearly saba with sharp light reflex bilaterally; no tragal tenderness. Oropharynx not erythematous without lesions. Tonsils not enlarged and without exudate, no drooling, no hoarseness, no trismus, uvula midline. NECK: Supple. No lymphadenopathy CHEST: Clear to auscultation, breath sounds equal. No wheezing, rhonchi, rales, or stridor. No respiratory distress, speaks in full sentences. HEART: Regular rate and rhythm. No murmur heard. SKIN: Warm, dry, no rash. NEURO: Alert and oriented x3. PSYCH: Normal mood and affect Course Course Emergency Course: Patient is aware of diagnosis, understands and agrees to treatment plan. Anticipatory guidance given. Patient agrees to follow-up as directed and is aware of reasons to seek care at the emergency department. Portions of this record may have been created with voice recognition software Level
== END 2023-09-19 16:15 | disposition home or self-care (01) ==
PROVIDERS: Emergency Provider Nurse Practitioner; PCP Family Medicine
DX: J06.9 Acute upper respiratory infection, unspecified (principal); E11.9 Type 2 diabetes mellitus without complications; Z79.84 Long term (current) use of oral hypoglycemic drugs; M79.7 Fibromyalgia
CPT/HCPCS: 99213; G0463

== ENCOUNTER 2023-10-07 09:19 | Emergency (ER) | payer OTHER, SELFPAY ==
[2023-10-07 10:11] VITALS: BP 117/62; PULSE 87; RESP 18; TEMP 36.3; O2SAT 100
--- NOTE | 2023-10-07 11:26 | ED.URI ---
HPI - URI/Sore Throat General Chief Complaint: Upper Respiratory Infection Stated Complaint: bilateral ear pain,sorethroat Source: patient and RN notes reviewed Mode of arrival: ambulatory Limitations: no limitations History of Present Illness HPI Narrative: 58-year-old female with a history of diabetes presented for complaint of sore throat, gland swelling, cough and bilateral ear pain over the past few days. Denies shortness of breath, wheezing, nausea, vomiting, diarrhea, fevers or chills. Granddtr with similar symptoms. MD elicited complaint: cough Related Data Home Medications Medication Instructions Recorded Confirmed atorvastatin 20 mg tablet 20 mg PO DAILY 04/15/23 10/07/23 empagliflozin 25 mg tablet 25 mg PO DAILY 04/15/23 10/07/23 (Jardiance) fluoxetine 20 mg capsule 20 mg PO DAILY 04/15/23 10/07/23 hydrocodone 10 mg-acetaminophen 1 tablet PO QID 04/15/23 10/07/23 325 mg tablet lisinopril 2.5 mg tablet 2.5 mg PO DAILY 04/15/23 10/07/23 metformin 1,000 mg tablet 1,000 mg PO BID 04/15/23 10/07/23 phentermine 37.5 mg capsule 37.5 mg PO DAILY 04/15/23 10/07/23 pregabalin 150 mg capsule 150 mg PO DAILY 04/15/23 10/07/23 ropinirole 1 mg tablet 1 mg PO TID 04/15/23 10/07/23 promethazine-DM 6.25 mg-15 mg/5 mL 5 ml PO Q4-6H cough 10/07/23 10/07/23 oral syrup Allergies Allergy/AdvReac Type Severity Reaction Status Date / Time cyclobenzaprine AdvReac Intermediate RESTLESS Verified 10/07/23 10:34 LEGS adhesive AdvReac Mild Blister Verified 10/07/23 10:34 Review of Systems Review of Systems: CONSTITUTIONAL: Denies malaise, chills, sweats, fever EYES: Denies visual changes, redness, or discharge ENT: Reports rhinorrhea, congestion, otalgia, sore throat CARDIOVASCULAR: Denies chest pain, palpitations, edema RESPIRATORY: Reports cough, post nasal drainage. Denies dyspnea GASTROINTESTINAL: Denies abdominal pain, nausea, vomiting, diarrhea SKIN: Denies rash or itching MUSCULOSKELETAL: Denies myalgia NEUROLOGIC: Denies headache [facility] Past Medical History Medical History Diabetes Fibromyalgia Surgical History Surgical History No pertinent past surgical history Family History Family History Mother Family history non-contributory Social History Social History Gender identity (if verbalized by the patient): Female Spiritual care concerns: No Exam Narrative: GENERAL: well-appearing, nontoxic no acute distress. HEAD: Normocephalic EYES: PERRLA, conjunctivae clear ENT: Mucous membranes moist. TMs pearly saba with dull light reflex bilaterally; no tragal tenderness. Oropharynx not erythematous without lesions or exudate, no drooling, no hoarseness, no trismus, uvula midline. No tripod positioning, muffled voice, soft palate or pharyngeal wall bulging NECK: Supple. No lymphadenopathy CHEST: Clear to auscultation, breath sounds equal. HEART: Regular rate and rhythm. No murmur heard. SKIN: Warm, dry, no rash. NEURO: Alert and oriented x3. PSYCH: Normal mood and affect Course Course Emergency Course: Patient is aware of diagnosis, understands and agrees to treatment plan. Anticipatory guidance given. Patient agrees to follow-up as directed and is aware of reasons to seek care at the emergency department. Portions of this record may have been created with voice recognition software Level of Care: Express Care Visit Vital Signs Vital signs: Vital Signs Temperature 97.3 F L 10/07/23 10:11 Pulse Rate 87 10/07/23 10:11 Respiratory Rate 18 10/07/23 10:11 Blood Pressure 117/62 10/07/23 10:11 Pulse Oximetry 100 10/07/23 10:11 Oxygen Delivery Room Air 10/07/23 10:11 Temperature 97.3 F L 10/07/23 10:11 Pulse Rate 87 10/07/23 10:11 Respi
== END 2023-10-07 11:54 | disposition home or self-care (01) ==
PROVIDERS: Emergency Provider Nurse Practitioner Family; PCP Family Medicine
DX: J06.9 Acute upper respiratory infection, unspecified (principal); E11.9 Type 2 diabetes mellitus without complications; Z79.84 Long term (current) use of oral hypoglycemic drugs; Z20.822 Contact with and (suspected) exposure to COVID-19
CPT/HCPCS: 87081; 87426; 87804; 87880; 99213; G0463

== ENCOUNTER 2024-04-05 14:42 | Emergency (ER) | payer OTHER, SELFPAY ==
--- NOTE | 2024-04-05 14:45 | ED.FEMALEGU ---
HPI - Female Genitourinary General Chief complaint: Urogenital-Female Stated complaint: possible UTI Time Seen by Provider: 04/05/24 14:45 Source: patient Mode of arrival: ambulatory Limitations: no limitations History of Present Illness HPI Narrative: Patient is a 58-year-old female who presents with 4 days of burning with urination, right low back pain and headache. Denies any fever, chills, nausea, vomiting, diarrhea. Has been taking [id number] azo. History of UTI MD elicited complaint: dysuria Related Data Home Medications Medication Instructions Recorded Confirmed atorvastatin 20 mg tablet 20 mg PO DAILY 04/15/23 02/29/24 empagliflozin 25 mg tablet 25 mg PO DAILY 04/15/23 02/29/24 (Jardiance) fluoxetine 20 mg capsule 20 mg PO DAILY 04/15/23 02/29/24 hydrocodone 10 mg-acetaminophen 1 tablet PO QID 04/15/23 02/29/24 325 mg tablet lisinopril 2.5 mg tablet 2.5 mg PO DAILY 04/15/23 02/29/24 metformin 1,000 mg tablet 1,000 mg PO BID 04/15/23 02/29/24 phentermine 37.5 mg capsule 37.5 mg PO DAILY 04/15/23 02/29/24 pregabalin 150 mg capsule 150 mg PO DAILY 04/15/23 02/29/24 ropinirole 1 mg tablet 1 mg PO TID 04/15/23 02/29/24 semaglutide 7 mg tablet (Rybelsus) 7 mg PO DAILY 02/15/24 02/29/24 Allergies Allergy/AdvReac Type Severity Reaction Status Date / Time cyclobenzaprine AdvReac Intermediate RESTLESS Verified 02/15/24 14:30 LEGS adhesive AdvReac Mild Blister Verified 02/15/24 14:30 Review of Systems Review of Systems: All systems reviewed & are unremarkable except as noted in HPI and below Constitutional: Constitutional: Denies chills, Denies fever(s), Denies headache(s), Denies malaise and Denies weakness Eyes: Eyes: Denies change in vision, Denies eye discharge and Denies irritation ENT: Denies otalgia, Denies headache(s), Denies nasal congestion, Denies nasal discharge, Denies sinus pain and Denies sore throat Cardiovascular: Cardiovascular: Denies chest pain, Denies edema, Denies palpitations and Denies dyspnea Respiratory: Respiratory: Denies cough and Denies dyspnea Gastrointestinal: Gastrointestinal: Denies abdominal pain, Denies diarrhea, Denies nausea and Denies vomiting Genitourinary: Genitourinary: Denies hematuria, Reports nocturia, Reports dysuria, Reports flank pain and Reports urinary urgency Musculoskeletal: Musculoskeletal: Denies back pain and Denies numbness Integumentary/Breasts: Skin/Breast: Denies pruritus and Denies rash Neurologic: Denies headache(s), Denies numbness and Denies weakness Psychiatric: Psychiatric: Reports no additional psychiatric complaints Endocrine: Endocrine: Denies palpitations PMFSH Past Medical History Medical History Diabetes Fibromyalgia Surgical History Surgical History No pertinent past surgical history Family History Family History Mother Family history non-contributory Social History Social History Smoking status: Current every day smoker Second hand tobacco smoke exposure: Yes Alcohol intake: never Substance use: never Substance use type: does not use Do You Feel Safe in your Home?: Yes Lack of Transportation: No Lack of Food: Never True Current Housing: I Have Housing Concerned About Future Housing: No Difficulty Paying Gas/Electric Bills: No Difficulty Paying for Meds: No Currently Unemployed: No Education: High School Diploma/GED Difficulty w/ Childcare or Family Care: No Living arrangements: with family Occupation/Education: unemployed Gender identity (if verbalized by the patient): Female Spiritual care concerns: No Comments At time of signature, agree with nursing past medical, surgical, social and family history. There is no relevant family history pertinent to the presenting complaint. Exam Const: General: cooperative, healthy appearing, comfortable, no acute distress and well nourished Nutritional Appearance: well nourished Orientation/consciousness: patient oriented x3 HENMT: Head: normocephalic and atraumatic Ears: external ears normal Face/Nose/Sinus: Normal external nose present, Normal nares present and normal facial exam Face and sinus: normal facial exam Eyes: General: appearance normal, both eyes and all related structures Pupils: Equal, round and reactive pupils present EOM: EOMs intact bilaterally Neck: Neck: normal visual inspection, full ROM and supple Chest: Chest palpation & inspection: normal inspection of the chest Resp: Effort & Inspection: normal respiratory effort and able to speak in complete sentences Cardio: Rate: regular rate Rhythm: regular rhythm GI: Inspection: normal to inspection GI Palp: No abdominal tenderness and Yes Soft to palpation : General: Yes no CVA tenderness Back/Spine/Pelvis: Back: no CVA tenderness Skin: General skin exam: normal color and no rashes or lesions noted Neuro: General: patient oriented x3 and moves all extremities Cranial nerves: Yes Equal, round and reactive pupils present Extrem: General: normal to inspection and full ROM Psych: Appearance: grossly normal and well kempt Course Course Emergency Course: Patient is aware of diagnosis, understands and agrees to treatment plan. Anticipatory guidance given. Patient agrees to follow-up as directed and is aware of reasons to seek care at the emergency department. Portions of this record may have been created with voice recognition software Level of Care: Express Care Visit Vital Signs Vital signs: Vital Signs Temperature 36.8 C 04/05/24 14:51 Pulse Rate 89 04/05/24 14:51 Respiratory Rate 18 04/05/24 14:51 Blood Pressure 125/65 04/05/24 14:51 Pulse Oximetry 97 04/05/24 14:51 Oxygen Delivery Room Air 04/05/24 14:51 Temperature 36.8 C 04/05/24 14:51 Pulse Rate 89 04/05/24 14:51 Respiratory Rate 18 04/05/24 14:51 Blood Pressure 125/65 04/05/24 14:51 Pulse Oximetry 97 04/05/24 14:51 Oxygen Delivery Room Air 04/05/24 14:51 Reviewed MDM - Female Genitourinary MDM Narrative Medical decision making narrative: Exam findings and UA show probable UTI; patient is non-toxic appearing and is in no distress. No CMT, adnexal tenderness, or evidence of pelvic etiology. Patient is appropriate for outpatient treatment and follow-up. Differential Diagnosis Differential diagnosis: Likely urinary tract infection, bacterial vaginosis, trichomoniasis, cervicitis, vaginitis and cystitis Medical Records Attestation: I reviewed the patient's medical records. Lab Data Attestation: I reviewed the patient's lab results. Labs: Lab Results 04/05/24 Range/Units 14:59 POC Urine Color [place] POC Urine Clarity Cloudy POC Urine pH 6.0 POC Ur Specif [place] 1.010 POC Urine Protein Negative (Negative) POC Ur Glucose (UA) 3+ (Negative) POC Urine Ketones Trace (Negative) POC Urine Blood Trace (Negative) POC Urine Nitrite Positive (Negative) POC Urine Bilirubin Negative (Negative) POC Urine Urobilinogen 1.0 POC U Leukocyte Esteras Negative (Negative) Discharge Plan Discharge Clinical Impression: Urinary tract infection Qualifiers: Urinary tract infection type: acute cystitis Hematuria presence: without hematuria Qualified Code(s): N30.00 - Acute cystitis without hematuria Patient Disposition: Home, Self-Care Condition: Stable Instructions: Urinary Tract Infection in Women (ED) Additional Instructions: We will send a urine culture to the lab, based on your symptoms and urine dip we will start treatment today. If culture comes back and bacteria is not susceptible to antibiotic, your prescription may change. Your symptoms should improve within a day of starting antibiotics, but you should finish all the antibiotic pills you get. Otherwise your infection might come back Continue with increased water intake. Take Tylenol or ibuprofen as needed for pain or fever. Follow-up with primary care provider for urine recheck or see ER visit if condition worsens with high fever, nausea, vomiting, severe back pain Prescriptions: New nitrofurantoin monohyd/m-cryst 100 mg capsule 100 mg PO Q12H 5 Days Qty: 10 0RF Rx Instructions: must administer with a meal/food No Action atorvastatin 20 mg tablet 20 mg PO DAILY ropinirole 1 mg tablet 1 mg PO TID metformin 1,000 mg tablet 1,000 mg PO BID fluoxetine 20 mg capsule 20 mg PO DAILY lisinopril 2.5 mg tablet 2.5 mg PO DAILY phentermine 37.5 mg capsule 37.5 mg PO DAILY pregabalin 150 mg capsule 150 mg PO DAILY Jardiance 25 mg tablet 25 mg PO DAILY hydrocodone-acetaminophen 10-325 mg tablet 1 tablet PO QID Rybelsus 7 mg tablet 7 mg PO DAILY Follow-up/Referrals: Bradley,Emanuel Singleton MD [Primary Care Provider] - 3 Days Stand Alone Forms: Work/School Release IP Time of Disposition: 16:00
[2024-04-05 14:51] VITALS: BP 125/65; PULSE 89; RESP 18; TEMP 36.8; O2SAT 97
[2024-04-05 15:02] LABS: EDUAAPPEAR Cloudy; EDUABILI Negative (Negative); EDUABLOOD Trace (Negative); EDUACOLOR1 Orange; EDUAGLUCOSE 3+ (Negative); EDUAKETONE Trace (Negative); EDUALEUKO Negative (Negative); EDUANITRATE Positive (Negative); EDUAPROTEIN Negative (Negative)
== END 2024-04-05 16:08 | disposition home or self-care (01) ==
PROVIDERS: Emergency Provider Nurse Practitioner Family; PCP Family Medicine
DX: N30.00 Acute cystitis without hematuria (principal); F17.200 Nicotine dependence, unspecified, uncomplicated; E11.9 Type 2 diabetes mellitus without complications; M79.7 Fibromyalgia; Z79.84 Long term (current) use of oral hypoglycemic drugs
CPT/HCPCS: 81003; 87086; 99213; G0463

== ENCOUNTER 2024-06-11 15:57 | Emergency (ER) | payer OTHER, SELFPAY ==
[2024-06-11 16:07] VITALS: BP 109/52; PULSE 105; RESP 18; TEMP 36.6; O2SAT 100
--- NOTE | 2024-06-11 16:25 | ED_ITS ---
HPI - URI/Sore Throat General Chief Complaint: Upper Respiratory Infection Stated Complaint: congested Time Seen by Provider: 06/11/24 16:26 History of Present Illness HPI Narrative: Patient presents with complaints 1-2 days body aches, cough, nasal congestion and fatigue. She has been around sick children, most recently 1 with RSV. She reports subjective fever. She has been taking xyud-soq-knnryis medication with moderate relief. She does reports associated ear pain, left worse than right. Voices no other concerns or complaints at this time Related Data Home Medications ?Medication ?Instructions ?Recorded ?Confirmed ?Last Taken ?Type atorvastatin 20 mg tablet 20 mg PO DAILY 04/15/23 02/29/24 Unknown History empagliflozin 25 mg tablet 25 mg PO DAILY 04/15/23 02/29/24 Unknown History (Jardiance) fluoxetine 20 mg capsule 20 mg PO DAILY 04/15/23 02/29/24 Unknown History hydrocodone 10 mg-acetaminophen 1 tablet PO QID 04/15/23 02/29/24 Unknown History 325 mg tablet lisinopril 2.5 mg tablet 2.5 mg PO DAILY 04/15/23 02/29/24 Unknown History metformin 1,000 mg tablet 1,000 mg PO BID 04/15/23 02/29/24 Unknown History phentermine 37.5 mg capsule 37.5 mg PO DAILY 04/15/23 02/29/24 Unknown History pregabalin 150 mg capsule 150 mg PO DAILY 04/15/23 02/29/24 Unknown History ropinirole 1 mg tablet 1 mg PO TID 04/15/23 02/29/24 Unknown History semaglutide 7 mg tablet (Rybelsus) 7 mg PO DAILY 02/15/24 02/29/24 Unknown History Allergies Allergy/AdvReac Type Severity Reaction Status Date / Time cyclobenzaprine AdvReac Intermediate RESTLESS Verified 06/11/24 16:20 LEGS adhesive AdvReac Mild Blister Verified 06/11/24 16:20 Review of Systems Review of Systems: All systems reviewed & are unremarkable except as noted in HPI and below Constitutional: Constitutional: Reports no additional constitutional compla ints, Reports body ache(s), Reports chills, Reports fever(s), Reports headache(s) and Reports lethargy ENT: Reports system reviewed and no additional complaints, except as documented, Reports otalgia, Reports nasal congestion, Reports nasal discharge and Reports sore throat Cardiovascular: Cardiovascular: Reports no additional cardiovascular complaints Respiratory: Respiratory: Reports no additional respiratory complaints and Reports cough Gastrointestinal: Gastrointestinal: Reports no additional gastrointestinal complaints [facility] Past Medical History Medical History Fibromyalgia Diabetes Surgical History Surgical History No pertinent past surgical history Family History Family History Mother Family history non-contributory Social History Social History Smoking status: Current every day smoker Second hand tobacco smoke exposure: Yes Alcohol intake: never Substance use: never Substance use type: does not use Do You Feel Safe in your Home?: Yes Lack of Transportation: No Lack of Food: Never True Current Housing: I Have Housing Concerned About Future Housing: No Difficulty Paying Gas/Electric Bills: No Difficulty Paying for Meds: No Currently Unemployed: No Education: High School Diploma/GED Difficulty w/ Childcare or Family Care: No Living arrangements: with family Occupation/Education: unemployed Gender identity (if verbalized by the patient): Female Spiritual care concerns: No Exam Const: General: cooperative, no acute distress, alert and awake Orientation/consciousness: oriented to person, oriented to place and oriented to time HENMT: Head: normal to inspection Ears: TM normal on the right and TM abnormal dull and erythematous Mouth: Yes moist mucous membranes Throat: posterior oropharynx abnormal erythema Resp: Effort & Inspection: normal respiratory effort and able to speak in complete sentences Auscultation: clear to auscultation bilaterally, no crackles, no rales, no rhonchi and no wheezes Cardio: Palpation: normal PMI Rate: regular rate Rhythm: regular rhythm Heart sounds: S1 normal heart sound present and S2 normal heart sound present Neuro: General: oriented to person, oriented to place and oriented to time Cranial nerves: Yes CN's II-XII intact bilaterally Psych: Appearance: grossly normal Thought process: Normal thought process present Insight: Good insight present (Psych) Judgement: Good judgement present (Psych) Course Course Level of Care: [facility] Care Visit Vital Signs Vital signs: Vital Signs Temperature 98 F 06/11/24 16:07 Pulse Rate 105 H 06/11/24 16:07 Respiratory Rate 18 06/11/24 16:07 Blood Pressure 109/52 L 06/11/24 16:07 Pulse Oximetry 100 06/11/24 16:07 Oxygen Delivery Room Air 06/11/24 16:07 Temperature 98 F 06/11/24 16:07 Pulse Rate 105 H 06/11/24 16:07 Respiratory Rate 18 06/11/24 16:07 Blood Pressure 109/52 L 06/11/24 16:07 Pulse Oximetry 100 06/11/24 16:07 Oxygen Delivery Room Air 06/11/24 16:07 MDM - URI/Sore Throat MDM Narrative Medical decision making narrative: negative COVID, negative flu, negative strep. Most symptoms are likely viral in origin, she does however, have otitis media as well. She is nontoxic appearing and stable for discharge home with p.o. antibiotic therapy for this. Otherwise should treat symptomatically. Discharge instructions reviewed with patient, as well as provided in writing per nursing staff. The instructions also include specific and strict return/GO TO THE ER as well as f/u information. All questions have been answered, and the patient deny any further questions with discharge and discharge plan. Some parts of this dictation were generated by voice recognition software and may contain typographical and/or grammatical inaccuracies. Differential Diagnosis Differential diagnosis: Likely upper respiratory infection, otitis media, viral infection, bronchitis, influenza and pharyngitis Medical Records Attestation: I reviewed the patient's medical records. Lab Data Attestation: I reviewed the patient's lab results. Discharge Plan Discharge Clinical Impression: Otitis media Qualifiers: Otitis media type: suppurative Chronicity: acute Laterality: left Recurrence: not specified as recurrent Spontaneous tympanic membrane rupture: without spontaneous rupture Qualified Code(s): H66.002 - Acute suppurative otitis media without spontaneous rupture of ear drum, left ear Upper respiratory infection Qualifiers: URI type: unspecified viral URI Qualified Code(s): J06.9 - Acute upper respiratory infection, unspecified Patient Disposition: Home, Self-Care Condition: Stable Instructions: Antibiotic Form, Ear Infection (ED), Cold Symptoms (ED) Additional Instructions: Take medications as prescribed. Follow with primary care provider. Emergency department for new or worsening symptoms. Patient Language: Macanese Prescriptions: New amoxicillin-pot clavulanate 875-125 mg tablet 1 tablet PO Q12H Qty: 20 0RF No Action atorvastatin 20 mg tablet 20 mg PO DAILY ropinirole 1 mg tablet 1 mg PO TID metformin 1,000 mg tablet 1,000 mg PO BID fluoxetine 20 mg capsule 20 mg PO DAILY lisinopril 2.5 mg tablet 2.5 mg PO DAILY phentermine 37.5 mg capsule 37.5 mg PO DAILY pregabalin 150 mg capsule 150 mg PO DAILY Jardiance 25 mg tablet 25 mg PO DAILY hydrocodone-acetaminophen 10-325 mg tablet 1 tablet PO QID Rybelsus 7 mg tablet 7 mg PO DAILY Follow-up/Referrals: Bradley,Emanuel Singleton MD [Primary Care Provider] - 2 Weeks Stand Alone Forms: Work/School Release IP Time of Disposition: 16:49
[2024-06-11 16:43] LABS: EDCOVIDSCREEN Negative (Negative)
[2024-06-11 16:48] LABS: EDINFLUASCREEN Negative (Negative); EDINFLUBSCREEN Negative (Negative)
== END 2024-06-11 16:52 | disposition home or self-care (01) ==
PROVIDERS: Emergency Provider Nurse Practitioner Family; PCP Family Medicine
DX: H66.002 Acute suppurative otitis media without spontaneous rupture of ear drum, left ear (principal); J06.9 Acute upper respiratory infection, unspecified; Z20.822 Contact with and (suspected) exposure to COVID-19; F17.200 Nicotine dependence, unspecified, uncomplicated; E11.9 Type 2 diabetes mellitus without complications; M79.7 Fibromyalgia
CPT/HCPCS: 87426; 87804; 99213; G0463

== ENCOUNTER 2024-08-05 14:32 | Emergency (ER) | payer OTHER, SELFPAY ==
--- OUTSIDE RECORDS SUMMARY | 2024-08-05 14:33 | XMS_ITS | Encounter Summary ---
Author Organization 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 Family Medicine [address] [phone] Emanuel Huerta MD [address] [address] Symptom Based Call Social History Tobacco Use Types Packs/Day Years Used Date Smoking Tobacco: Every Day Cigarettes Smokeless Tobacco: Never AUDIT-C Answer Date Recorded Q1: How often do you have a drink containing alcohol? Never 04/27/2023 Q2: How many drinks containi ng alcohol do you have on a typical day when you are drinking? Patient does not drink Q3: How often do you have si x or more drinks on one occasion? Never 04/27/2023 PHQ-2 Answer Date Recorded PHQ-2 Total Score 0 07/05/2024 Comments No Sex and Gender Information Value Date Recorded Sex Assigned at Not on file Legal Sex Female 3:23 AM [employer] Gender Identity Female 05/29/2021 11:17 AM [employer] Sexual Orientation Not on file documented as of this encounter Miscellaneous Notes * Telephone Encounter - Daisy Gamez LPN - 07/10/2024 11:01 AM CST Pt vu [employer] * Telephone Encounter - Emanuel Huerta MD - 07/09/2024 3:34 PM [employer] Rx sent [employer] * Telephone Encounter - Nikki Lara - 07/09/2024 12:54 PM CST Symptom Based Call Chief Complaint(s): eyes are matted shut in the am, discharge ,watery and itchy Duration: yesterday What type of symptom(s) is the patient experiencing? Non-Emergent. Is this a new or reoccurring symptom(s)? new What have you tried to help your symptom(s)? Nothing Why was appointment not scheduled? Patient seeking care without an appointment; appointment was offered by [facility]. Additional Comments: patient is requesting a prescription for pink eye She states her was recently diagnosed with pink eye Does message need to be routed? Yes-Action Needed [employer] documented in this encounter Plan of Treatment Not on file documented as of this encounter Visit Diagnoses Not on filedocumented in this encounter Care Teams Combination Machine Tool Setter Relationship Specialty Start Date End Date Emanuel Huerta MD [facility] [address] [place] [id number] PCP - General Family Medicine 06/16/21 documented as of this encounter
--- OUTSIDE RECORDS SUMMARY | 2024-08-05 14:34 | XMS_ITS | Patient Health Summary ---
Author Organization [facility] Address [address] 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 This disclosure is being madepursuant to the Care Everywhere program and may not contain all information available regarding this patient. Last updated 18.[facility] Allergies * Cyclobenzaprine(Other) * Pcca [employer](Rash) -Medium Criticality Medications * Be aware that medications may not be up to date on this document. Alwaysverify current medications with the patient. * rOPINIRole (REQUIP) 1 MG tablet Take 1 (one) tablet by mouth 3 times daily * FLUoxetine (PROZAC) 20 MG capsule(Started 04/02/2019) Take 1 (one) capsule by mouth once daily * lisinopril (PRINIVIL; ZESTRIL) 2.5 MG tablet(Started 06/20/2019) Take 1 (one) tablet by mouth once daily * atorvastatin (LIPITOR) 20 MG tablet(Started 12/12/2019) Take 1 (one) tablet by mouth once daily * pregabalin (LYRICA) 150 MG capsule(Started 12/10/2019) Take 1 (one) capsule by mouth 2 times daily * HYDROcodone-acetaminophen (NORCO) 10-325 MG tablet Take 1 (one) tablet by mouth every 6 hours as needed for Pain * metFORMIN (GLUCOPHAGE) 1000 MG tablet Take 1 (one) tablet by mouth daily with breakfast * empagliflozin (JARDIANCE) 25 MG tablet Take 1 (one) tablet by mouth * Multiple Vitamins-Minerals (CENTRUM VITAMINTS PO) Take 1 tablet by mouth 2 times daily * Biotin 5000 MCG Take by mouth once daily * CALCIUM CITRATE 600 mg TABS tablet Take by mouth 2 times daily * phentermine (Adipex-P) 37.5 MG capsule(Started 03/04/2022) * semaglutide (Rybelsus) 7 MG tablet(Started 12/30/2023) Take 1 (one) tablet by mouth once daily Active Problems Problem Noted Date Diagnosed Date BMI 45.0-49.9, adult 12/31/2020 Gastroesophageal reflux disease without esophagi tis 12/31/2020 Vitamin D deficiency 12/31/2020 Sleep apnea 12/31/2020 S/P laparoscopic sleeve gastrectomy 01/17/2020 Class 3 severe obesity due t o excess calories with serious comorbidity and body mass index (BMI) of 45.0 to 49.9 in adult 01/01/2020 Hyperlipidemia 06/20/2019 Fibromyalgia 06/13/2019 Former smoker 06/13/2019 Depressive disorder 06/13/2019 Osteoarthrosis 04/30/2019 Type 2 diabetes mellitus wit hout complication, with long-term current use of insulin 04/30/2019 Pre-op evaluation Immunizations * Covid Pfizer primary monovalent 12+ yr 0.3mL Purple cap(Given 08/27/2020, 07/31/2020) Social History Tobacco Use Types Packs/Day Years Used Date Smoking Tobacco: Every Day Cigarettes 0.5 40 Started: 12/25/1981; Last attempted to quit: 12/25/2021 Smokeless Tobacco: Never Tobacco Cessation:Ready to Q uit: Not Asked; Counseling Given: Not Answered Comments:Smoking currently but using Chantix Patient voiced she restarted smoking in December 2021 Alcohol Use Standard Drinks/Week Comments Not Currently 0 (1 standard drink = 0.6 oz pur e alcohol) AUDIT-C Answer Date Recorded Q1: How often do you have a drink containing alc ohol? Monthly or less 10/27/2022 Q2: How many drinks containi ng alcohol do you have on a typical day when you are drinking? 1 or 2 10/27/2022 Q3: How often do you have si x or more drinks on one occasion? Never 10/27/2022 PHQ-2 Answer Date Recorded Patient Health Questionnaire-2 Score 0 01/04/2024 Sex and Gender Information Value Date Recorded Sex Assigned at Not on file Gender Identity Not on file Sexual Orientation Not on file Last Filed Vital Signs Vital Sign Reading Time Taken Comments Blood Pressure 116/60 10/27/2022 12:10 PM CDT Pulse 75 10/27/2022 12:10 PM CDT Temperature 36.8 C (98.2 F) 10/27/2022 11:55 AM CDT Respiratory Rate 16 10/27/2022 11:55 AM CDT Oxygen Saturation 97% 10/27/2022 12:10 PM CDT Inhaled Oxygen Concentration - - Weight 112.9 kg (249 lb) 02/01/2024 11:00 AM CDT Height 163.8 cm (5' 4.49 ) 02/01/2024 11:00 AM C DT Body Mass Index 42.1 02/01/2024 11:00 AM CDT Procedures * HEMOGLOBIN A1C(Performed 08/31/2023) Performed for Morbid obesity with body mass index (BMI) of 40.0 to 44.9 in adult ([facility]), S/P laparoscopic sleeve gastrectomy, Type 2 diabetes mellitus with other specified complication, unspecified whether senior care insulin use ([facility]), Intestinal malabsorption following gastrectomy ([facility]) * IRON + TRANSFERRIN PANEL(Performed 08/31/2023) Performed for Morbid obesity with body mass index (BMI) of 40.0 to 44.9 in adult ([facility]), S/P laparoscopic sleeve gastrectomy, Intestinal malabsorption following gastrectomy ([facility]) * PHOSPHORUS BLOOD(Performed 08/31/2023) Performed for Morbid obesity with body mass index (BMI) of 40.0 to 44.9 in adult ([facility]), S/P laparoscopic sleeve gastrectomy, Intestinal malabsorption following gastrectomy ([facility]) * PTH INTACT+CALCIUM(Performed 08/31/2023) Performed for Morbid obesity with body mass index (BMI) of 40.0 to 44.9 in adult ([facility]), S/P laparoscopic sleeve gastrectomy, Intestinal malabsorption following gastrectomy ([facility]) * VITAMIN B1(Performed 08/31/2023) Performed for Morbid obesity with body mass index (BMI) of 40.0 to 44.9 in adult ([facility]), S/P laparoscopic sleeve gastrectomy, Intestinal malabsorption following gastrectomy ([facility]) * VITAMIN B12 FOLATE PANEL(Performed 08/31/2023) Performed for Morbid obesity with body mass index (BMI) of 40.0 to 44.9 in adult ([facility]), S/P laparoscopic sleeve gastrectomy, Intestinal malabsorption following gastrectomy ([facility]) * VITAMIN D 25-HYDROXY(Performed 08/31/2023) Performed for Morbid obesity with body mass index (BMI) of 40.0 to 44.9 in adult ([facility]), S/P laparoscopic sleeve gastrectomy, Intestinal malabsorption following gastrectomy ([facility]) * MAGNESIUM BLOOD(Performed 08/31/2023) Performed for Morbid obesity with body mass index (BMI) of 40.0 to 44.9 in adult ([facility]), S/P laparoscopic sleeve gastrectomy, Intestinal malabsorption following gastrectomy ([facility]) * LIPID PROFILE(Performed 08/31/2023) Performed for Morbid obesity with body mass index (BMI) of 40.0 to 44.9 in adult ([facility]), S/P laparoscopic sleeve gastrectomy, Intestinal malabsorption following gastrectomy ([facility]) * FERRITIN(Performed 08/31/2023) Performed for Morbid obesity with body mass index (BMI) of 40.0 to 44.9 in adult ([facility]), S/P laparoscopic sleeve gastrectomy, Intestinal malabsorption following gastrectomy ([facility]) * COMPREHENSIVE METABOLIC PANEL(Performed 08/31/2023) Performed for Morbid obesity with body mass index (BMI) of 40.0 to 44.9 in adult ([facility]), S/P laparoscopic sleeve gastrectomy, Intestinal malabsorption following gastrectomy ([facility]) * CBC W AUTO DIFFERENTIAL(Performed 08/31/2023) Performed for Morbid obesity with body mass index (BMI) of 40.0 to 44.9 in adult ([facility]), S/P laparoscopic sleeve gastrectomy, Intestinal malabsorption following gastrectomy ([facility]) * CARDIAC RHYTHM STRIP ORDER(Performed 10/28/2022) * GLUCOSE - POINT OF CARE(Performed 10/27/2022) * GROSS + MICRO EXAM (ILL)(Performed 10/27/2022) Performed for Status post bariatric surgery * NM EGD FLEX TRANSORAL W BX SNGL OR MULT(Performed 10/27/2022) Performed for Status post bariatric surgery * GLUCOSE - POINT OF CARE(Performed 10/27/2022) * LAB MISC TEST(Performed 02/10/2022) * LAB MISC TEST(Performed 08/04/2020) * CARDIAC RHYTHM STRIP ORDER(Performed 01/03/2020) * MAGNESIUM BLOOD(Performed 01/02/2020) * GLUCOSE - POINT OF CARE(Performed 01/02/2020) * GLUCOSE - POINT OF CARE(Performed 01/02/2020) * PHOSPHORUS BLOOD(Performed 01/02/2020) * MAGNESIUM BLOOD(Performed 01/02/2020) * COMPREHENSIVE METABOLIC PANEL(Performed 01/02/2020) * CBC W AUTO DIFFERENTIAL(Performed 01/02/2020) * GLUCOSE - POINT OF CARE(Performed 01/02/2020) * GLUCOSE - POINT OF CARE(Performed 01/02/2020) * GLUCOSE - POINT OF CARE(Performed 01/01/2020) * MAGNESIUM BLOOD(Performed 01/01/2020) * GLUCOSE - POINT OF CARE(Performed 01/01/2020) * GLUCOSE - POINT OF CARE(Performed 01/01/2020) * PHOSPHORUS BLOOD(Performed 01/01/2020) * MAGNESIUM BLOOD(Performed 01/01/2020) * COMPREHENSIVE METABOLIC PANEL(Performed 01/01/2020) * CBC W AUTO DIFFERENTIAL(Performed 01/01/2020) * GLUCOSE - POINT OF CARE(Performed 01/01/2020) * GROSS + MICRO EXAM (ILL)(Performed 01/01/2020) Performed for Morbid obesity ([facility]) * NM LAP SLEEVE GASTRECTOMY(Performed 01/01/2020) Performed for Morbid obesity ([facility]CC) * GLUCOSE - POINT OF CARE(Performed 01/01/2020) * SARS-COV-2 (COVID-19) IN HOUSE(Performed 12/29/2019) Performed for Pre-operative laboratory examination * BLOOD TYPE VERIFICATION(Performed 12/27/2019) * BASIC METABOLIC PANEL (CALCIUM TOTAL)(Performed 12/27/2019) Performed for Pre-op testing * CBC W/O DIFFERENTIAL(Performed 12/27/2019) Performed for Pre-op testing * TYPE + SCREEN PANEL(Performed 12/27/2019) Performed for Pre-op testing * HCG URINE QUALITATIVE(Performed 12/27/2019) Performed for Pre-op testing * LAB MISC TEST(Performed 07/13/2019) * NICOTINE + METABOLITES BLOOD(Performed 06/22/2019) Performed for History of tobacco use * LAB RESULTS ORDER(Performed 06/14/2019) * GROSS + MICRO EXAM (ILL)(Performed 06/11/2019) Performed for Gastritis, presence of bleeding unspecified, unspecified chronicity, unspecified gastritis type, Screen for colon cancer * COLONOSCOPY SCREEN(Performed 06/11/2019) Performed for Gastritis, presence of bleeding unspecified, unspecified chronicity, unspecified gastritis type, Screen for colon cancer * NM ED EGD FLEX TRANSORAL DX(Performed 06/11/2019) Performed for Gastritis, presence of bleeding unspecified, unspecified chronicity, unspecified gastritis type, Screen for colon cancer * GLUCOSE - POINT OF CARE(Performed 06/11/2019) * HCG URINE QUALITATIVE(Performed 06/11/2019) Performed for Pre-op testing * STRESS TEST TREADMILL (NO IMAGING)(Performed 05/06/2019) Performed for SOB (shortness of breath), Nonspecific abnormal electrocardiogram (ECG) (EKG), Preop examination * ECHOCARDIOGRAM STRESS(Performed 05/04/2019) Performed for SOB (shortness of breath), Nonspecific abnormal electrocardiogram (ECG) (EKG), Preop examination * EKG 12-LEAD(Performed 05/04/2019) Performed for Chest pain, unspecified type * ECHOCARDIOGRAM 2D WITH DOPPLER(Performed 05/04/2019) Performed for SOB (shortness of breath), Preoperative evaluation to rule out surgical contraindication * NICOTINE + METABOLITES BLOOD(Performed 04/30/2019) Performed for Former smoker * LAB MISC TEST(Performed 03/05/2019) Results * PTH INTACT+CALCIUM (08/31/2023) Blood BLOOD SPECIMEN / Unknown 08/31/2023 Maria De Jesus Mcelroy [facility] - CHEMISTRY ORDERABLES OTHER LAB * VITAMIN B1 (08/31/2023) Blood BLOOD SPECIMEN / Unknown 08/31/2023 Maria De Jesus Mcelroy [facility] - CHEMISTRY ORDERABLES OTHER LAB * HEMOGLOBIN A1C (08/31/2023) Blood BLOOD SPECIMEN WITH EDTA / Unknown 08/31/2023 Maria De Jesus Mcelroy ORDER [facility] - CHEMISTRY ORDERABLES Performing Organization Address City/[facility] Co de Phone Number OTHER LAB * VITAMIN D 25-HYDROXY (08/31/2023) Blood BLOOD SPECIMEN / Unknown 08/31/2023 Maria De Jesus R Lilibeth [facility] - [facility] Performing Organization Address City/[facility] Co de Phone Number OTHER LAB * CBC WITH DIFFERENTIAL (08/31/2023) Only the most recent of3 resultswithin the time period is included. Blood BLOOD SPECIMEN / Unknown 08/31/2023 Maria De Jesus R Lilibeth [facility] LAB - HEMATOLOGY ORDERABLES Performing Organization Address [facility] de Phone Number OTHER LAB * COMPREHENSIVE METABOLIC PANEL (08/31/2023) Only the most recent of3 resultswithin the time period is included. Blood BLOOD SPECIMEN / Unknown 08/31/2023 Maria De Jesus R Lilibeth [facility] - CHEMISTRY ORDERABLES Performing Organization Address [facility] de Phone Number OTHER LAB * PHOSPHORUS BLOOD (08/31/2023) Only the most recent of3 resultswithin the time period is included. Blood BLOOD SPECIMEN / Unknown 08/31/2023 Maria De Jesus R Lilibeth [facility] - CHEMISTRY ORDERABLES Performing Organization Address City/[facility] Co de Phone Number OTHER LAB * MAGNESIUM BLOOD (08/31/2023) Only the most recent of5 resultswithin the time period is included. Blood BLOOD SPECIMEN / Unknown 08/31/2023 Maria De Jesus Chris Lilibeth [facility] - CHEMISTRY ORDERABLES Performing Organization Address City/[facility]/ZIP Co de Phone Number OTHER LAB * VITAMIN B12 FOLATE PANEL (08/31/2023) Blood BLOOD SPECIMEN / Unknown 08/31/2023 Maria De Jesus Mcelroy [facility] - CHEMISTRY ORDERABLES Performing Organization Address [facility] Co de Phone Number OTHER LAB * IRON + TRANSFERRIN PANEL (08/31/2023) Blood BLOOD SPECIMEN / Unknown 08/31/2023 Maria De Jesus Mcelroy [facility] - CHEMISTRY ORDERABLES Performing Organization Address [facility] Co de Phone Number OTHER LAB * FERRITIN (08/31/2023) Blood BLOOD SPECIMEN / Unknown 08/31/2023 Maria De Jesus Callejasreena [facility] - CHEMISTRY ORDERABLES Performing Organization Address [facility] Co de Phone Number OTHER LAB * LIPID PROFILE (08/31/2023) Blood BLOOD SPECIMEN / Unknown 08/31/2023 Maria De Jesus Callejasreena [facility] - CHEMISTRY ORDERABLES Performing Organization Address [facility] Co de Phone Number OTHER LAB * CARDIAC RHYTHM STRIP ORDER (10/28/2022 1:37 PM CDT) Only the most recent of2 resultswithin the time period is included. Narrative 10/28/2022 1:37 PM CDT Ordered by an unspecified provider. Scanned Document CARDIAC SERVICES ORD ERABLES * (ABNORMAL) GLUCOSE - POINT OF CARE (10/27/2022 11:27 AM CDT) Only the most recent of12 resultswithin the time period is included. [facility] Glucose WB/POC 148(H) 70 - 125 mg/dL 10/27/2022 11:38 AM CDT [facility] Specimen Type Cap Fingerstick 2022 11:38 AM CDT [facility] Blood BLOOD SPECIMEN / Unknown 10/27/2022 11:27 AM CDT 10/27/2022 11:38 AM CDT Judy Choi MD LAB - POINT OF C ARE ORDERABLES [facility] [address] * GROSS + MICRO EXAM (ILL) (10/27/2022 11:16 AM CDT) Only the most recent of3 resultswithin the time period is included. Case Report Surgical Pathology Report Case: [id number] Authorizing Provider: Judy Choi MD Collected: 10/27/2022 11:16 AM Ordering Location: [facility] Received: 10/27/2022 02:22 PM Pathologist: Kumar James MD Specimens: A) - Antrum Biopsy, Antrum biopsy rule out h. pylori B) - EG Junction Biopsy , GE Junction biopsy 10/28/2022 10:56 AM CDT [facility] Final Diagnosis A. Stomach, antrum, biopsy: - Mild reactive gastropathy. - No Helicobacter pylori organisms (by H&E exam). B. Esophagus, gastroesophageal junction, biopsy: - Squamous mucosa with reactive changes. 10/28/2022 10:56 AM CDT [facility] Microscopic Description and Comment Microscopic examination is performed and substantiates the above diagnosis. A. Fragments of antral mucosa display mild tortuous elongation of foveolae with epithelial mucin depletion, congestion, smooth muscle proliferation in the lamina propria and no significant inflammatory infiltrate. B. The GE junction biopsy contains squamous only. The squamous shows basal cell hyperplasia, and mild spongiosis. 10/28/2022 10:56 AM CDT [facility] Clinical History Status post bariatric surgery. Upper GI endoscopy: Normal stomach. Normal esophagus. Normal Z-line. Bile reflux seen. 10/28/2022 10:56 AM CDT [facility] Gross Description The requisition and specimen(s) are identified with the patient's name (Edilson Dupont), MRN, and . Received in formalin, specimen antrum biopsy rule out H. Pylori , are 2 guillen-pink tissues, 0.4 x 0.3 x 0.1 cm and 0.6 x 0.2 x 0.1 cm. The specimen is submitted in toto in cassette A1. Received in formalin, specimen G E junction biopsy , is a guillen-pink tissue, 0.3 x 0.2 x 0.2 cm. The specimen is submitted in toto in cassette B1. AW 10/28/2022 10:56 AM T [facility] Pathologist Location at [facility] 10/28/2022 10:56 AM CDT [facility] Performed By The interpretation o f this case is performed by [facility] Pathology at [facility], [address] [place] [id number]. 10/28/2022 10:56 AM T [facility] Disclaimer The performance characteristics of all immunohistochemical and indirect immunofluorescence stains (if any) cited in this report were determined by the Histopathology Laboratory of [facility]. Some of these tests were developed by our own laboratory and have not been cleared or approved by the US Food and Drug Administration. The FDA does not require this test to go through premarket FDA review. These tests are used for clinical purposes. They should not be regarded as investigational or for research. This laboratory is certified under the Clinical Laboratory Improvement Amendments (CLIA) as qualified to perform high complexity clinical laboratory testing. H&E slides and special stains prepared at [facility], [place]. [address] (CLIA# [id number]) unless otherwise specified. This case was interpreted by the [facility] Department of Pathology. When applicable, select reference laboratory testing is performed at the [facility], [address] [place] [id number]. 10/28/2022 10:56 AM T [facility] Embedded Images 10/28/2022 10:56 AM T [facility] Pathology/Cytology BIOPSY SPECIMEN / Unknown 10/27/2022 11:16 AM CDT 10/27/2022 2:22 PM CDT Comment:Pre-op diagnosis: Status post bariatric surgery [Z98.84] Miscellaneous samples (specimen) BIOPSY SPECIMEN / Unknown 10/27/2022 11:16 AM CDT 10/27/2022 2:22 PM CDT Comment:Pre-op diagnosis: Status post bariatric surgery [Z98.84] Judy Choi MD LAB - PATHOLOGY/ CYTOLOGY ORDERABLES [facility] [address] * LAB MISC TEST (02/10/2022) Only the most recent of4 resultswithin the time period is included. Blood BLOOD SPECIMEN / Unknown Historical Provider LAB SEND OUT * SARS-COV-2 (COVID-19) [facility] MICRO (12/29/2019 11:05 AM CDT) COVID-19 PCR Not detected Not detected, Invalid 12/31/2019 5:14 AM CDT [facility] Microbiology SPECIMEN FROM NASOPHARYNGEAL STRUCTURE / Unknown Collection / Unknown 12/29/2019 11:05 AM CDT 12/29/2019 11:05 AM CDT Narrative [facility] - 12/31/2019 5:14 AM CDT This Real Time RT-PCR assay was developed and its performance characteristics determined by [facility]. This test has been authorized by the Food and Drug administration (FDA)under an Emergency Use Authorization (EUA). This test has been validated in accordance with the FDA's guidance document Policy for Diagnostic Testing in Laboratories Certified to perform High Complexity Testing under CLIA prior to Emergency Use Authorization for Coronavirus Disease-2019 during the Public Health Emergency issued on July 28, 2019. FDA independent review of this validation is pending. This test is only authorized for the duration of time the declaration that circumstances exist justifying the authorization of emergency use of in vitro diagnostic tests for detection of SARS-CoV-2 virus and/or diagnosis of COVID-19 infection under section 564(b)(1) of the Act, 21 U.S.C 360bbb-3 (b)(1), unless the authorization is terminated or revoked sooner. Chela Sheth ORDER [facility] - MICROBIOLO GY ORDERABLES [facility] [address] [place], [address] [phone] * BLOOD TYPE VERIFICATION (12/27/2019 12:07 PM CDT) Pathologist [facility] ABO Rh B NEG 12/27/2019 12:49 PM CDT [facility] Blood Bank BLOOD SPECIMEN / Unknown Lab Venipuncture / Unknown 12/27/2019 12:07 PM CDT 12/27/2019 12:13 PM CDT Kyleigh Lindsay MD LAB - BLOOD B ANK ORDERABLES [facility] [address] * (ABNORMAL) CBC W/O DIFFERENTIAL (12/27/2019 12:05 PM CDT) [facility] WBC 7.2 4.0 - 10.0 x10E9/L 12/27/2019 12:20 PM CDT [facility] RBC 4.71 3.93 - 5.22 x10E12/L 12/27/2019 12:20 PM CDT [facility] Hemoglobin 11.9 11.2 - 15.7 gm/dL 12/27/2019 12:20 PM CDT [facility] Hematocrit 38.5 34.1 - 44.9 % 12/27/2019 12:20 PM CDT [facility] MCV 81.7 78.0 - 100.0 fl 12/27/2019 12:20 PM CDT [facility] MCH 25.3(L) 25.6 - 34.0 pg 12/27/2019 12:20 PM CDT [facility] MCHC 30.9(L) 32.3 - 36.5 gm/dL 12/27/2019 12:20 PM CDT [facility] RDW 15.2(H) 11.6 - 14.4 % 12/27/2019 12:20 PM CDT [facility] MPV 8.7(L) 9.4 - 12.4 fl 12/27/2019 12:20 PM CDT [facility] Platelet Count 223 163 - 369 x10E9/L 12/27/2019 12:20 PM CDT [facility] Blood BLOOD SPECIMEN / Unknown 12/27/2019 12:05 PM CDT 12/27/2019 12:13 PM CDT Kyleigh Lindsay MD LAB - HEMATOL OGY ORDERABLES Performing Organization Address [facility] Co de Phone Number [facility] [address] * (ABNORMAL) BASIC METABOLIC PANEL (CALCIUM TOTAL) (12/27/2019 12:05 PM CDT) [facility] Glucose 200(H) 70 - 125 mg/dL 12/27/2019 12:42 PM CDT [facility] Sodium 140 136 - 145 mmol/L 12/27/2019 12:42 PM CDT [facility] Potassium 4.4 3.4 - 4.5 mmol/L 12/27/2019 12:42 PM CDT [facility] Chloride 107 98 - 107 mmol/L 12/27/2019 12:42 PM CDT [facility] CO2 20(L) 22 - 29 mmol/L 12/27/2019 12:42 PM CDT [facility] Calcium 9.3 8.4 - 10.2 mg/dL 12/27/2019 12:42 PM CDT [facility] Anion Gap 17 10 - 20 mmol/L 12/27/2019 12:42 PM CDT [facility] BUN 19.3 9.8 - 20.1 mg/dL 12/27/2019 12:42 PM CDT [facility] Creatinine 0.79 0.57 - 1.11 mg/dL 12/27/2019 12:42 PM CDT [facility] eGFR by MDRD >60 >60 mL/min/1.7 3m2 12/27/2019 12:42 PM CDT [facility] eGFR by MDRD >60 >60 mL/min/1.7 3m2 12/27/2019 12:42 PM CDT [facility] Blood BLOOD SPECIMEN / Unknown 12/27/2019 12:05 PM CDT 12/27/2019 12:14 PM CDT Kyleigh Lindsay MD LAB - HEAD END DESIZING MACHINE OPERATOR RY ORDERABLES Performing Organization Address City/State/[facility] Co de Phone Number [facility] [address] [place] [address] * TYPE + SCREEN PANEL (12/27/2019 12:01 PM CDT) Pathologist [facility] ABO Rh B NEG 12/27/2019 12:53 PM CDT [facility] Antibody Screen NEG 0 12:53 PM CDT [facility] Blood Bank BLOOD SPECIMEN / Unknown Lab Venipuncture / Unknown 12/27/2019 12:01 PM CDT 12/27/2019 12:13 PM CDT Kyleigh Lindsay MD LAB - BLOOD B ANK ORDERABLES Performing Organization Address [facility] Co de Phone Number [facility] [address] [place] [address] * HCG URINE QUALITATIVE (12/27/2019 12:00 PM CDT) Only the most recent of2 resultswithin the time period is included. [facility] hCG Qualitative Urine Negative Negative 12/27/2019 12:21 PM CDT [facility] Specific [place] UA 1.021 1.005 - 1.030 12/27/2019 12:21 PM CDT [facility] Urine URINE / Unknown Collection / Unknown 12/27/2019 12:00 PM CDT 12/27/2019 12:13 PM CDT Narrative [facility] - 12/27/2019 12:21 PM CDT Kyleigh Lindsay MD LAB - URINALY SIS ORDERABLES Performing Organization Address [facility] Co de Phone Number [facility] [address] [place] [address] * NICOTINE + METABOLITES BLOOD (06/22/2019 3:36 PM MATERIALS AND CORROSION ENGINEER) Only the most recent of2 resultswithin the time period is included. Pathologist [facility] Nicotine <2 ng/mL 06/25/2019 9:47 PM MATERIALS AND CORROSION ENGINEER [facility] ([facility]) Comment: INTERPRETIVE INFORMATION: Nicotine and Metabolites, Serum or Plasma, Quantitative Methodology: Quantitative Liquid Chromatography-Tandem Mass Spectrometry Positive cutoff: 2 ng/mL For medical purposes only; not valid for forensic use. This test is designed to evaluate recent use of nicotine-containing products. Passive and active exposure cannot be discriminated definitively, although a cutoff of 10 ng/mL cotinine is frequently used for surgery qualification purposes. For smoking cessation programs or compliance testing, the absence of expected drug(s) and/or drug metabolite(s) may indicate non-compliance, inappropriate timing of specimen collection relative to drug administration, poor drug absorption, or limitations of testing. This test cannot distinguish between use of tobacco and purified nicotine products. The concentration value must be greater than or equal to the cutoff to be reported as positive. Test developed and characteristics determined by [employer]. See Compliance Statement B: [employer]CS Performed by [employer], [address] [place] [address] [email or web address] Mars Rendon MD, Lab. Director 3-Hydroxy Cotinine <2 ng/mL 2019 9:47 PM MATERIALS AND CORROSION ENGINEER [facility] [employer] ([facility]) Cotinine 4 ng/mL 06/25/2019 9:47 PM MATERIALS AND CORROSION ENGINEER [facility] [employer] ([facility]) Comment: Cotinine is the major metabolite of nicotine and is a biomarker of passive exposure when present at low concentrations. This result may reflect passive exposure to a nicotine-containing product. The half-life of cotinine is approximately 16 hours. Cotinine is metabolized to [id number]. Blood BLOOD SPECIMEN / Unknown Lab Venipuncture / Unknown 06/22/2019 3:36 PM MATERIALS AND CORROSION ENGINEER 06/22/2019 3:41 PM MATERIALS AND CORROSION ENGINEER Chela Sheth ORDER [facility]ER[facility]PRESS[facility] LAB - CHEMISTRY ORDERABLES [employer] ([facility]) [address] * LAB RESULTS ORDER (06/14/2019) Historical Provider LAB - THERAPEUTIC DRUG MONITORING ORDERABLES * STRESS TEST-EKG TRACING ONLY (05/06/2019 11:59 PM MATERIALS AND CORROSION ENGINEER) Narrative [facility] MMODAL - 05/06/2019 11:59 PM MATERIALS AND CORROSION ENGINEER Robin Holt MD 05/07/2019 3:41 PM Referring Physician: Dr Singh Indication: Dyspnea, Pre-Operative Assessment After informed consent was obtained the patient was connected to a 12-lead electrocardiogram. Hemodynamic monitoring is also performed. Dobutamine is infused starting at 10 mcg/kg per minute. This is titrated to 30 mcg/kg/min. Atropine 0.3 mg was given intravenously to aid in achievement of the target heart rate. The maximum heart rate achieved was 162 beats per minute which is 97% of the maximum predicted heart rate. The resting ECG has minor T wave changes. Premature ventricular complexes are noted with dobutamine infusion. No ST changes are seen. Assessment 1 Normal dobutamine stress test [address] changes seen to suggest myocardial ischemia 3.Please see echocardiogram report for echocardiographic findings Fahad Singh MD CARDIAC SERVICES ORD ERABLES [facility] * ECHOCARDIOGRAM STRESS Dobutamine (resting) Echocardiogram (05/04/2019 1:31 PM MATERIALS AND CORROSION ENGINEER) Narrative [facility] - 05/04/2019 1:31 PM MATERIALS AND CORROSION ENGINEER [address] [address] Dobutamine Stress Echocardiography Patient: EDILSON DUPONT MR #: [id number] : 1965 Age: 54 years Gender: Female Study date: 04-May-2019 Status: Outpatient Room: - Allergies: CYCLOBENZAPRINE, PCCA PLASTICIZED BASE Referring Physician: Fahad Singh MD [facility] Physical Chemistry Professor: Robin Holt MD, [facility] Oxygen Equipment Aide: Andrei Du RDCS Clinical question: R94.31 NONSPECIFIC ABNORMAL EKG History: PREOP EXAMINATION, SOB The patient is a 54 year old female. Procedure: The procedure was explained to the patient and informed consent was obtained. A dobutamine infusion pharmacologic stress test was performed. Stress and rest echocardiographic evaluation with 2D imaging and Definity intravenous contrast was performed from multiple acoustic windows for evaluation of ventricular function. Dobutamine protocol: Time HR bpm SBP mmHg DBP mmHg Symptoms Baseline -- 87 142 70 none 10 mcg/kg/min -- 99 150 70 -- 20 mcg/kg/min -- 120 160 72 -- 30 mcg/kg/min 00:00 153 110 60 -- Recovery I -- 105 112 70 -- Stress summary: Duration of pharmacologic stress was 7 min and 54 sec. Maximal heart rate during stress was 162 bpm ( 97 % of maximal predicted heart rate). There was no chest pain during stress. The stress test was terminated due to achievement of target heart rate. Stress 2D echocardiographic results: Baseline: There were no regional wall motion abnormalities. Low dose: There were no regional wall motion abnormalities. Peak stress: There were no regional wall motion abnormalities. Recovery: There were no regional wall motion abnormalities. Summary: - Procedure information: Height: 163 cm. Weight: 146 kg. Body surface area = 2.4 m-sq - Stress results: Target heart rate was achieved. There was no chest pain during stress. - Baseline: There were no regional wall motion abnormalities. - Low dose: There were no regional wall motion abnormalities. - Peak stress: There were no regional wall motion abnormalities. - Recovery: There were no regional wall motion abnormalities. Impressions: Normal study after pharmacologic stress. Left ventricular systolic function was normal. Based on this study, the risk of a perioperative complication due to myocardial ischemia appears to be low. No evidence of ischemia at this level of stress. All images and data generated for this procedure were personally reviewed by me. Prepared and Electronically Authenticated Robin Holt MD, [facility] 04-May-2019 13:31:14 Procedure Note Unknown, Provider, - 05/04/[address] [address] Dobutamine Stress Echocardiography Patient: EDILSON DUPONT MR #: [id number] : 1965 Age: 54 years Gender: Female Study date: 04-May-2019 Status: Outpatient Room: - Allergies: CYCLOBENZAPRINE, PCCA PLASTICIZED BASE Referring Physician: Fahad Singh MD [facility] Physical Chemistry Professor: Robin Holt MD, [facility] Oxygen Equipment Aide: Andrei Du RDCS Clinical question: R94.31 NONSPECIFIC ABNORMAL EKG History: PREOP EXAMINATION, SOB The patient is a 54 year old female. Procedure: The procedure was explained to the patient and informed consentwas obtained. A dobutamine infusion pharmacologic stress test was performed. Stress and rest echocardiographic evaluation with 2D imaging and Definityintravenous contrast was performed from multiple acoustic windows for evaluation of ventricular function. Dobutamine protocol: Time HR bpm SBP mmHg DBP mmHg Symptoms Baseline -- 87 142 70 none 10 mcg/kg/min -- 99 150 70 -- 20 mcg/kg/min -- 120 160 72 -- 30 mcg/kg/min 00:00 153 110 60 -- Recovery I -- 105 112 70 -- Stress summary: Duration of pharmacologic stress was 7 min and 54 sec.Maximal heart rate during stress was 162 bpm ( 97 % of maximal predicted heartrate). There was no chest pain during stress. The stress test was terminated dueto achievement of target heart rate. Stress 2D echocardiographic results: Baseline: There were no regional wall motion abnormalities. Low dose: There were no regional wall motion abnormalities. Peak stress: There were no regional wall motion abnormalities. Recovery: There were no regional wall motion abnormalities. Summary: - Procedure information: Height: 163 cm. Weight: 146 kg.Body surface area = 2.4 m-sq - Stress results: Target heart rate was achieved. There was no chest pain during stress. - Baseline: There were no regional wall motion abnormalities. - Low dose: There were no regional wall motion abnormalities. - Peak stress: There were no regional wall motion abnormalities. - Recovery: There were no regional wall motion abnormalities. Impressions: Normal study after pharmacologic stress. Left ventricular systolic function was normal. Based on this study, the risk of a perioperative complication due to myocardial ischemia appears to be low. No evidenceof ischemia at this level of stress. All images and data generated for this procedure were personally reviewedby va. Prepared and Electronically Authenticated Robin Holt MD, [facility] 04-May-2019 13:31:14 Fahad Singh MD ECHO ORDERABLES [facility] * EKG 12-LEAD (05/04/2019 10:59 AM MATERIALS AND CORROSION ENGINEER) Ventricular Rate 99 BPM [facility] P-R Interval 170 ms [facility] QRS Duration ms 86 ms [facility] Q-T Interval ms 364 ms [facility] QTC Calculation (Bezet) 468 ms [facility] Calculated P [place] 79 degrees [facility] Calculated R [place] 61 degrees [facility] Calculated T [place] 68 degrees [facility] Interpretation EKG NORMAL SINUS RHYTHM WAVEFORM NOT STORED ELECTRONICALLY IN MUSE, CAN BE FOUND SCANNED IN PATIENT'S EHR Confirmed by MD TAHMINA, ROBIN ([id number]), primer expeditor and drier CURT HICKS ([id number]) on 05/08/2019 6:25:52 PM [facility] 05/04/2019 10:5 9 AM MATERIALS AND CORROSION ENGINEER 05/08/2019 6:25 PM MATERIALS AND CORROSION ENGINEER Fahad Singh MD ECG ORDERABLES [facility] * ECHOCARDIOGRAM 2D WITH DOPPLER (05/04/2019 12:00 AM MATERIALS AND CORROSION ENGINEER) 05/04/2019 Narrative [facility] - 05/04/2019 3:25 PM MATERIALS AND CORROSION ENGINEER [facility] [address] [place], [place] [id number] Transthoracic Echocardiogram 2D, M-mode, Doppler, and Color Doppler Patient: EDILSON DUPONT MR #: [id number] : 1965 Age: 54 years Gender: Female Study date: 04-May-2019 Status: Outpatient Room: - Height: 63.8 in Weight: 322.7 lb BSA: 2.39 m-sq Referring Physician: Fahad Singh MD [facility] Physical Chemistry Professor: Robin Holt MD, [facility] Oxygen Equipment Aide: Andrei Du [facility] Summary: - Clinical question: R06.02 SOB - Left ventricle: Systolic function was normal. Ejection fraction was estimated in the range of 55 % to 60 %. - Right ventricle: Estimated peak pressure was 22 mmHg. - Right atrium: The atrium was dilated. Clinical question: R06.02 SOB History: Cardiovascular history: PREOPERATIVE EVALUATION Procedure: The procedure was performed in the echo lab. This was a routine study. The transthoracic approach was used. The study included complete 2D imaging, M-mode, complete spectral Doppler, and color Doppler. The heart rate was 81 bpm, at the start of the study. Systolic blood pressure was 142 mmHg, at the start of the study. Diastolic blood pressure was 70 mmHg, at the start of the study. Intravenous contrast (Definity) was administered to opacify the left ventricle. This was a technically difficult study. Left ventricle: Size was normal. Systolic function was normal. Ejection fraction was estimated in the range of 55 % to 60 %. There were no regional wall motion abnormalities. Wall thickness was normal. Doppler: Left ventricular diastolic function parameters were normal. Aortic valve: The valve was trileaflet. Leaflets exhibited normal thickness and normal cuspal separation. Doppler: Transaortic velocity was within the normal range. There was no stenosis. There was no aortic valve regurgitation. Aorta: The root exhibited normal size. Mitral valve: Valve structure was normal. There was normal leaflet separation. Doppler: The transmitral velocity was within the normal range. There was no evidence for stenosis. There was no regurgitation. Left atrium: Size was normal. Pulmonary veins: The pulmonary veins were normal sized. Doppler: Doppler flow pattern was normal in the pulmonary vein(s). Right ventricle: The size was normal. Systolic function was normal. Wall thickness was normal. Doppler: Estimated peak pressure was 22 mmHg. Pulmonic valve: Not well visualized. Doppler: The transpulmonic velocity was within the normal range. There was no regurgitation. Tricuspid valve: The valve structure was normal. There was normal leaflet separation. Doppler: The transtricuspid velocity was within the normal range. There was no evidence for tricuspid stenosis. There was no regurgitation. Right atrium: The atrium was dilated. Systemic veins: IVC: The inferior vena cava was normal in size. Pericardium: There was no pericardial effusion. The pericardium was normal in appearance. System measurement tables 2D LVEF MOD A4C: 57.63 % IVSd: 1.02 cm LVEDV MOD A4C: 119.25 ml LVESV MOD A4C: 50.53 ml LVIDd: 4.78 cm LVOT Diam: 2.18 cm LVPWd: 0.92 cm RVIDd: 4.04 cm Ao sinus: 2.98 cm EF Biplane: 59.75 % LAAs A2C: 22.47 cm2 LAAs A4C: 17.41 cm2 LAESV A-L A2C: 76.84 ml LAESV A-L A4C: 54.11 ml LAESV Index (A-L): 29.22 ml/m2 LAESV MOD A2C: 71.88 ml LAESV MOD A4C: 50.16 ml LAESV(A-L): 69.83 ml LALs A2C: 5.58 cm LALs A4C: 4.76 cm LVEDV MOD A2C: 140.18 ml LVEDV MOD BP: 129.77 ml LVEF MOD A2C: 61.42 % LVESV MOD A2C: 54.08 ml LVESV MOD BP: 52.23 ml LVLd A2C: 8.01 cm LVLs A2C: 6.13 cm SV MOD A2C: 86.1 ml CW AV VTI: 27.18 cm AV Vmax: 1.27 m/s AV maxP.42 mmHg AV meanP.2 mmHg RAP: 5 mmHg TR Vmax: 2.1 m/s TR maxP.72 mmHg MM AV Cusp: 2.07 cm Ao/LA: 0.6 AoR Diam; (2D): 2.93 cm LA Diam: 4.84 cm LA/Ao: 1.65 PW MACIE (VTI): 3.06 cm2 MACIE Vmax: 2.35 cm2 LVCI Dopp: 2.71 l/minm2 LVCO Dopp: 6.47 L/min LVOT VTI: 22.32 cm LVOT Vmax: 0.8 m/s LVOT Vmean: 0.52 m/s LVOT maxP.56 mmHg LVOT meanP.22 mmHg LVSI Dopp: 34.77 ml/m2 LVSV Dopp: 83.1 ml MV A Ru: 0.78 m/s MV Dec Treasure: 5.67 m/s2 MV DecT: 155.82 ms MV E Ru: 0.88 m/s MV E/A Ratio: 1.14 MV PHT: 48.2 ms MVA By PHT: 4.56 cm2 PV Vmax: 0.93 m/s PV maxP.5 mmHg RVSP: 22.72 mmHg HR: 77.83 BPM All images and data generated for this procedure were personally reviewed by me. Prepared and Electronically Authenticated Robin Holt MD, [facility] 04-May-2019 15:25:15 Procedure Note Unknown, Provider, - 05/04/[address] [address] Transthoracic Echocardiogram 2D, M-mode, Doppler, and Color Doppler Patient: EDILSON DUPONT MR #: [id number] : 1965 Age: 54 years Gender: Female Study date: 04-May-2019 Status: Outpatient Room: - Height: 63.8 in Weight: 322.7 lb BSA: 2.39 m-sq Referring Physician: Fahad Singh MD [facility] Physical Chemistry Professor: Robin Holt MD, [facility] Oxygen Equipment Aide: Andrei Du RDCS Summary: - Clinical question: R06.02 SOB - Left ventricle: Systolic function was normal. Ejection fraction was estimated in the range of 55 % to 60 %. - Right ventricle: Estimated peak pressure was 22 mmHg. - Right atrium: The atrium was dilated. Clinical question: R06.02 SOB History: Cardiovascular history: PREOPERATIVE EVALUATION Procedure: The procedure was performed in the echo lab. This was aroutine study. The transthoracic approach was used. The study included [id number] imaging, M-mode, complete spectral Doppler, and color Doppler. The heartrate was 81 bpm, at the start of the study. Systolic blood pressure was 142mmHg, at the start of the study. Diastolic blood pressure was 70 mmHg, at the startof the study. Intravenous contrast (Definity) was administered to opacify the left ventricle. This was a technically difficult study. Left ventricle: Size was normal. Systolic function was normal. Ejection fraction was estimated in the range of 55 % to 60 %. There were noregional wall motion abnormalities. Wall thickness was normal. Doppler: Left ventricular diastolic function parameters were normal. Aortic valve: The valve was trileaflet. Leaflets exhibited normalthickness and normal cuspal separation. Doppler: Transaortic velocity was within thenormal range. There was no stenosis. There was no aortic valve regurgitation. Aorta: The root exhibited normal size. Mitral valve: Valve structure was normal. There was normal leafletseparation. Doppler: The transmitral velocity was within the normal range. There wasno evidence for stenosis. There was no regurgitation. Left atrium: Size was normal. Pulmonary veins: The pulmonary veins were normal sized. Doppler: Dopplerflow pattern was normal in the pulmonary vein(s). Right ventricle: The size was normal. Systolic function was normal. Wall thickness was normal. Doppler: Estimated peak pressure was 22 mmHg. Pulmonic valve: Not well visualized. Doppler: The transpulmonic velocitywas within the normal range. There was no regurgitation. Tricuspid valve: The valve structure was normal. There was normalleaflet separation. Doppler: The transtricuspid velocity was within the normalrange. There was no evidence for tricuspid stenosis. There was noregurgitation. Right atrium: The atrium was dilated. Systemic veins: IVC: The inferior vena cava was normal in size. Pericardium: There was no pericardial effusion. The pericardium was normalin appearance. System measurement tables 2D LVEF MOD A4C: 57.63 % IVSd: 1.02 cm LVEDV MOD A4C: 119.25 ml LVESV MOD A4C: 50.53 ml LVIDd: 4.78 cm LVOT Diam: 2.18 cm LVPWd: 0.92 cm RVIDd: 4.04 cm Ao sinus: 2.98 cm EF Biplane: 59.75 % LAAs A2C: 22.47 cm2 LAAs A4C: 17.41 cm2 LAESV A-L A2C: 76.84 ml LAESV A-L A4C: 54.11 ml LAESV Index (A-L): 29.22 ml/m2 LAESV MOD A2C: 71.88 ml LAESV MOD A4C: 50.16 ml LAESV(A-L): 69.83 ml LALs A2C: 5.58 cm LALs A4C: 4.76 cm LVEDV MOD A2C: 140.18 ml LVEDV MOD BP: 129.77 ml LVEF MOD A2C: 61.42 % LVESV MOD A2C: 54.08 ml LVESV MOD BP: 52.23 ml LVLd A2C: 8.01 cm LVLs A2C: 6.13 cm SV MOD A2C: 86.1 ml CW AV VTI: 27.18 cm AV Vmax: 1.27 m/s AV maxP.42 mmHg AV meanP.2 mmHg RAP: 5 mmHg TR Vmax: 2.1 m/s TR maxP.72 mmHg MM AV Cusp: 2.07 cm Ao/LA: 0.6 AoR Diam; (2D): 2.93 cm LA Diam: 4.84 cm LA/Ao: 1.65 PW MACIE (VTI): 3.06 cm2 MACIE Vmax: 2.35 cm2 LVCI Dopp: 2.71 l/minm2 LVCO Dopp: 6.47 L/min LVOT VTI: 22.32 cm LVOT Vmax: 0.8 m/s LVOT Vmean: 0.52 m/s LVOT maxP.56 mmHg LVOT meanP.22 mmHg LVSI Dopp: 34.77 ml/m2 LVSV Dopp: 83.1 ml MV A Ru: 0.78 m/s MV Dec Treasure: 5.67 m/s2 MV DecT: 155.82 ms MV E Ru: 0.88 m/s MV E/A Ratio: 1.14 MV PHT: 48.2 ms MVA By PHT: 4.56 cm2 PV Vmax: 0.93 m/s PV maxP.5 mmHg RVSP: 22.72 mmHg HR: 77.83 BPM All images and data generated for this procedure were personally reviewedby me. Prepared and Electronically Authenticated Robin Holt MD, [facility] 04-May-2019 15:25:15 Fahad Singh MD ECHO ORDERABLES [facility] Care Teams Line Haul Truck Driver Relationship Specialty Start Date End Date Emanuel Huerta MD [address] [facility] [address] [place] [id number] PCP - General Family Medicine 12/25/21
--- OUTSIDE RECORDS SUMMARY | 2024-08-05 14:34 | XMS_ITS | Data Portability ---
Author Organization [place] [facility], Main Office Address [address] [place] [address] Care Team Providers Care Feedlot Manager Name Role Phone JUDITH TAYLOR Primary Care Provider JUDITH TAYLOR Referring Provider Assessment Encounter Date Assessment Date Assessment LastModified by Organization Details LastModified Time 02/11/2023 02/11/2023 HPI: Patient returns. Her right long trigger finger has recurred. She had a cortisone injection in June this year. Triggering started again about a month or 2 ago. She wished to have another injection. She has only had 1 injection so far. I reminded her that 2 injections his maximum for this problem. She understands that. Physical exam: Patient has full extension of the long finger. Moderate tenderness over the A1 maggie. She has some mild triggering with full flexion. After ChloraPrep was used on skin 5 mg Kenalog and 1 cc of 0.5% ropivacaine was injected into the right long finger A1 maggie. Disc infection discussed. Impression: Patient has had recurrence of her right long trigger finger. At this point she has had 2 injections. I remind her that if she has recurrence of the trigger finger the next step would be surgical intervention she understands that. She will follow up as needed. [email or web address] Not available 02/11/2023 09:51:10 Plan of Treatment Reminders Order Date Submit Date Provider Last Modified By Organization Details Last Modified Time Details Appointments None recorded. Lab None recorded. Referral None recorded. Procedures injection/a spiration joint/bursa (PROC) - in office procedure, administere d by provider 2022 023 [email or web address] In-Office Order, Internal Use Only DO Not Attach Compendium DO Not Attach Compendium, Do Not Delete/merge, [address] 3 09:30:32 Surgeries None recorded. Imaging None recorded. Medication Orders Kenalog 10 mg/mL suspension for injection 2022 [facility] [id number] [address] [facility], [place], [place], [phone], 3 09:22:18 ropivacaine (PF) 5 mg/mL (0.5 %) injection solution 2022 023 [address] [id number] [address] [facility], [place], [place], [phone], 3 09:22:18 Patient TargetsNo targets recorded. Patient InstructionsNo instructions recorded. Reason for Referral None Reported. Results Created Date Observation Date Name Description Value Unit Range Abnormal Flag Note LastModifiedBy Organization Detail LastModifiedTime 02/07/20 21 02/06/2021 HEMOG LOBIN A1C HA1C 7.8 % 4.0-6. 0 high Diabe susan Scree ibrahima Crite jose eduardo: <5.7% Consi stent with absen ce of diabe susan 5.7-6 .4% Consi stent with incre ased risk for diabe susan (pred iabet es) >OR=6 .5% Consi stent with diabe susan REFER ENCE: Diabe susan Care 2016, 39(Irving ppl.1 ):s13 -s22 Not Available [facility] ([facility]) [address] [place], [address], 02/06/2021 20:41:50 03/15/20 21 03/15/2021 XR, knee No observ ation record ed. [id number] [place], [address], 07/28/2022 01:18:34 03/15/20 21 03/15/2021 CT, abdom en + pelvi s, w/ contr ast No observ ation record ed. MIGRATION.[address], [address], 07/28/2022 01:18:34 07/21/19 23 XR, hand No observ ation record ed. [id number] [id number] [place] [address], [place], [address], 07/28/2022 01:18:34 Result Notes None recorded. Problems Name Problem SNOMED Code Status Onset Date Resolution Date Notes Provider Name and Address Organization Details Recorded Time Fibromyal erika 801869969 Active 2019 Not Available [facility] 3 01:00:21 Chronic diarrhea 034858229 Active 2020 Not Available [facility] 3 01:00:21 Thyroid nodule 323336858 Active 2020 Not Available [facility] 3 01:00:21 Morbid obesity 527873828 Active 2019 Not Available [facility] 3 01:00:21 Adrenal adenoma 097687883 Active 2020 Not Available [facility] 3 01:00:21 Microalbu minuria 629167600 Active 2019 Not Available [facility] 3 01:00:21 Type 2 diabetes mellitus without complicat ion 297792582 Active 2019 Not Available [facility] 3 01:00:21 Pain in right hand 87825805473 9109 Active 2022 Not Available [facility] 3 01:00:21 Restless legs 49582520 Active 2019 Not Available [facility] 3 01:00:22 History of sleeve gastrecto my 29250498014 9107 Active 2019 Not Available [facility] 3 01:00:22 Vitamin D deficienc y 26451541 Active 2019 Not Available [facility] 3 01:00:22 Depressiv e disorder 22045177 Active 2019 Not Available [facility] 3 01:00:22 Neuropath y 332366157 Active 2019 Not Available [facility] 3 01:00:22 Osteoarth ritis 626082172 Active Not Available [facility] 3 01:00:22 Subclinic al hyperthyr oidism 534796272 Active 2020 Not Available [facility] 3 01:00:22 Uncontrol led type 2 diabetes mellitus 213347792 Active 2019 Not Available [facility] 3 01:00:23 Hyperlipi demia 19383727 Active 2019 Not Available [facility] 3 01:00:23 Smoker 02063920 Completed 201906/30/2020 Not Available [facility] 3 01:00:23 Obstructi ve sleep apnea syndrome 06893754 Active 2019 Not Available [facility] 3 01:00:23 Chronic pain 70249972 Active 2019 Not Available [facility] 3 01:00:23 Chronic idiopathi c constipat ion 01578940 Active 2020 Not Available [facility] 3 01:00:23 Ex-smoker 2653732 Active 2019 Not Available [facility] 3 01:00:23 Problem Notes None recorded. Procedures Surgical History Date Name Laterality Status Provider Name and Address Organization Details Recorded Time Knee Replacement completed Not Available [facility] 07/28/2022 00:48:56 Carpal tunnel surgery completed Not Available [facility] 07/28/2022 00:48:56 Gastric Bypass completed Not Available [facility] 07/28/2022 00:48:56 Imaging Results Imaging Date Name Status LastModified by Organiz ation Details LastModified Time 07/21/2022 XR, hand completed MIGRATION. [id number] [id number] [place] [address], [place], [address], 07/28/2022 01:18:34 03/15/2021 XR, knee completed MIGRATION. 30 026 [facility] [address] [place], [address], 07/28/2022 01:18:34 03/15/2021 CT, abdomen + pelvis, w/ contrast completed [id number] 026 [facility] [address], [place], [address], 07/28/2022 01:18:34 Procedure Notes None recorded. Medical Equipment None Reported. Allergies Allergen ID Allergen Name Allergen Category Reaction Reaction Severity Criticality Documentation Date Start Date Code Code System Note Provider Name and Address Organization Details Recorded Time 1897 Flexall medicatio n Not available Not available Not available 07/28/2022 59276 13 RxNorm Not Available [facility] 01:17:58 Medications Name Sig Start Date Stop Date Status Note LastModified by Organization Details LastModified Time multivitam in tablet TAKE 1 TABLET BY MOUTH EVERY DAY DIRECTED 09/20 completed Not Available Not Available Not Available Mirena 21 mcg/24 hr (up to 8 years) 52 mg intrauteri ne device 03/19 completed Not Available Not Available Not Available metformin 500 mg tablet 03/19 completed Not Available Not Available Not Available nystatin 100,000 unit/mL oral suspension 03/19 completed Not Available Not Available Not Available prednisone 10 mg tablet active Not Available Not Available Not Available atorvastat in 20 mg tablet TAKE 1 TABLET BY MOUTH EVERY DAY AT BEDTIME active Not Available Not Available No t Available ropinirole 1 mg tablet TAKE 1 TABLET BY MOUTH THREE TIMES DAILY active Not Available Not Available No t Available atorvastat in 10 mg tablet Take 1 tablet every day by oral route at bedtime. active Not Available Not Available No t Available ibuprofen 800 mg tablet active Not Available Not Available Not Available fluconazol e 150 mg tablet active Not Available Not Available Not Available valacyclov ir 1 gram tablet 03/19 completed Not Available Not Available Not Available fluconazol e 200 mg tablet 03/19 completed Not Available Not Available Not Available meloxicam 15 mg tablet 03/19 completed Not Available Not Available Not Available phenazopyr idine 200 mg tablet Take 1 tablet every 8 hours by oral route as needed for 3 days. 07/07 completed Not Available Not Available Not Available prednisone 20 mg tablet 03/19 completed Not Available Not Available Not Available clobetasol 0.05 % topical cream APPLY TOPICALL Y TWICE DAILY 09/20 completed Not Available Not Available Not Available Lantus U-100 Insulin 100 unit/mL subcutaneo us solution 03/19 completed Not Available Not Available Not Available phentermin e 15 mg capsule Take 1 capsule every day by oral route in the morning for 30 days. 02/10 completed Take 30 mins before brekfas t. Not Available Not Available Not Available topiramate 25 mg tablet 03/30 completed Not Available Not Available Not Available acetaminop hen 300 mg-codeine 30 mg tablet active Not Available Not Available Not Available sulfametho xazole 800 mg-trimeth oprim 160 mg tablet TAKE 1 TABLET BY MOUTH TWICE DAILY FOR 10 DAYS 05/12 completed Not Available Not Available Not Available hydrocodon e 10 mg-acetami nophen 325 mg tablet TAKE 1 TABLET BY MOUTH EVERY 6 HOURS NEEDED FOR PAIN active Not Available Not Available No t Available omeprazole 40 mg capsule,de layed release TAKE ONE CAPSULE BY MOUTH DAILY BEFORE BREAKFAS T 07/21 completed Not Available Not Available Not Available aspirin 81 mg tablet,del ayed release Take 1 tablet every day by oral route with meals. 07/21 completed Not Available Not Available Not Available tramadol 50 mg tablet TAKE ONE TABLET BY MOUTH EVERY 6 HOURS NEEDED FOR PAIN 07/21 completed Not Available Not Available Not Available acetaminop hen 500 mg tablet active Not Available Not Available Not Available triamcinol one acetonide 0.1 % topical cream 03/19 completed Not Available Not Available Not Available phentermin e 30 mg capsule TAKE 1 CAPSULE BY MOUTH EVERY DAY IN THE MORNING 02/10 completed Not Available Not Available Not Available amoxicilli n 500 mg tablet active Not Available Not Available Not Available glimepirid e 1 mg tablet 03/19 completed Not Available Not Available Not Available Macrobid 100 mg capsule Take 1 capsule every 12 hours by oral route for 7 days. active Not Available Not Available No t Available amitriptyl ine 25 mg tablet 06/13 completed Not Available Not Available Not Available Kenalog 10 mg/mL suspension for injection in office 2022 active [facility]: [phone] Not Available Not Available Not Available doxycyclin e monohydrat e 100 mg capsule 03/19 completed Not Available Not Available Not Available hydrocodon e 7.5 mg-acetami nophen 325 mg tablet TAKE 1 TABLET BY MOUTH EVERY 6 HOURS NEEDED 02/11 completed Not Available Not Available Not Available cephalexin 500 mg capsule Take 1 capsule 3 times a day by oral route for 7 days. 09/20 completed Not Available Not Available Not Available fluoxetine 20 mg tablet 03/19 completed Not Available Not Available Not Available metformin 1,000 mg tablet TAKE 1 TABLET BY MOUTH TWICE DAILY WITH MEALSN O REFILLS UNTIL SEEN active Not Available Not Available No t Available neomycin-p olymyxin-d exameth 3.5 mg/mL-10,0 00 unit/mL-0. 1% eye drops 03/19 completed Not Available Not Available Not Available ropinirole 0.5 mg tablet 03/19 completed Not Available Not Available Not Available nystatin 100,000 unit/gram topical cream APPLY TOPICALL Y TO THE AFFECTED AREA TWICE DAILY 09/20 completed Not Available Not Available Not Available glimepirid e 4 mg tablet 03/30 completed Not Available Not Available Not Available ursodiol 300 mg capsule active Not Available Not Available Not Available orphenadri ne citrate ER 100 mg tablet,ext ended release 03/19 completed Not Available Not Available Not Available nicotine 21 mg/24 hr daily transderma l patch APPLY 1 PATCH TOPICALL Y TO THE SKIN DAILY 09/20 completed Not Available Not Available Not Available docusate sodium 100 mg capsule Take 1 capsule twice a day by oral route as needed for 30 days. 07/21 completed Not Available Not Available Not Available gabapentin 300 mg capsule 03/19 completed Not Available Not Available Not Available diclofenac sodium 75 mg tablet,del ayed release TAKE 1 TABLET BY MOUTH TWICE DAILY WITH FOOD active Not Available Not Available No t Available morphine ER 15 mg tablet,ext ended release 03/19 completed Not Available Not Available Not Available bisacodyl 5 mg tablet,del ayed release 06/13 completed Not Available Not Available Not Available ergocalcif robbie (vitamin D2) 1,250 mcg (50,000 unit) capsule TAKE 1 CAPSULE BY MOUTH EVERY WEEK DIRECTED 07/21 completed Not Available Not Available Not Available clobetasol 0.05 % topical ointment 03/19 completed Not Available Not Available Not Available insulin lispro (U-100) 100 unit/mL subcutaneo us solution active Not Available Not Available Not Available ibuprofen 600 mg tablet 03/19 completed Not Available Not Available Not Available polyethyle ne glycol 3350 17 gram/dose oral powder Take 17 g every day by oral route as directed for 30 days. 07/21 completed Not Available Not Available Not Available scopolamin e 1 mg over 3 days transderma l patch active Not Available Not Available Not Available methylpred nisolone 4 mg tablets in a dose pack FOLLOW PACKAGE DIRECTIO NS 09/20 completed Not Available Not Available Not Available ondansetro n 4 mg disintegra ting tablet active Not Available Not Available Not Available cefdinir 300 mg capsule 03/19 completed Not Available Not Available Not Available fluoxetine 20 mg capsule TAKE 1 CAPSULE BY MOUTH DAILY active Not Available Not Available No t Available metformin ER 500 mg tablet,ext ended release 24 hr 03/19 completed Not Available Not Available Not Available lisinopril 2.5 mg tablet TAKE 1 TABLET BY MOUTH DAILY active Not Available Not Available No t Available phentermin e 37.5 mg capsule active Not Available Not Available Not Available glipizide 5 mg tablet 03/19 completed Not Available Not Available Not Available naproxen 500 mg tablet 03/19 completed Not Available Not Available Not Available amoxicilli n 875 mg-potassi um clavulanat e 125 mg tablet TAKE 1 TABLET BY MOUTH TWICE DAILY FOR 10 DAYS 02/11 completed Not Available Not Available Not Available amoxicilli n 500 mg-potassi um clavulanat e 125 mg tablet 03/19 completed Not Available Not Available Not Available nicotine 7 mg/24 hr daily transderma l patch active Not Available Not Available Not Available Ventolin HFA 90 mcg/actuat ion aerosol inhaler 03/19 completed Not Available Not Available Not Available neomycin-p olymyxin-h ydrocort 3.5 mg-10,000 unit/mL-1 % ear drops,susp 03/19 completed Not Available Not Available Not Available insulin syringe U-100 with needle 1/2 mL 30 gauge 03/19 completed Not Available Not Available Not Available cyclobenza asiya 5 mg tablet 03/19 completed Not Available Not Available Not Available hydrocodon e 10 mg-acetami nophen 300 mg tablet active Not Available Not Available No t Available DILT-XR 120 mg capsule, extended release 03/19 completed Not Available Not Available Not Available pregabalin 75 mg capsule TAKE 1 TAB PO TID 06/13 completed Not Available Not Available Not Available pregabalin 150 mg capsule TAKE 1 CAPSULE BY MOUTH EVERY 12 HOURS DIRECTED active Not Available Not Available No t Available Lyrica 25 mg capsule 03/19 completed Not Available Not Available Not Available lidocaine (PF) 10 mg/mL (1 %) injection solution In office injectio n administ ered by the provider 02/10 completed [facility]: [phone] Not Available Not Available Not Available Chantix 1 mg tablet TAKE 1 TABLET BY MOUTH TWICE DAILY DIRECTED active Not Available Not Available No t Available calcium 200 mg (as citrate)-v itamin D3 6.25 mcg (250 unit) tablet TAKE 1 TABLET BY MOUTH TWICE DAILY DIRECTED 09/20 completed Not Available Not Available Not Available BD Ultra-Fine Elaine Pen Needle 32 gauge x 5/32 03/19 completed Not Available Not Available Not Available Tradjenta 5 mg tablet 03/19 completed Not Available Not Available Not Available ropivacain e (PF) 5 mg/mL (0.5 %) injection solution in office 2022 active [facility] [phone] [phone] Not Available Not Available Not Available OneTouch Verio test strips active Not Available Not Available Not Available Chantix Starting Month Box 0.5 mg (11)-1 mg (42) tablets in dose pack 03/30 completed Not Available Not Available Not Available alogliptin 25 mg tablet 03/19 completed Not Available Not Available Not Available Victoza 3-Brett 0.6 mg/0.1 mL (18 mg/3 mL) subcutaneo us pen injector ADMINIST ER 1.8 MG UNDER THE SKIN EVERY DAY DIRECTED 07/21 completed Not Available Not Available Not Available Bydureon 2 mg/0.65 mL subcutaneo us pen injector INJECT 2 MG UNDER THE SKIN EVERY WEEK DIRECTED 07/18 completed Not Available Not Available Not Available Jardiance 25 mg tablet TAKE 1 TABLET BY MOUTH EVERY DAY active Not Available Not Available No t Available Trulicity 0.75 mg/0.5 mL subcutaneo us pen injector ADMINIST ER 0.75 MG UNDER THE SKIN EVERY 7 DAYS 09/20 completed Not Available Not Available Not Available OneTouch Verio Meter active Not Available Not Available Not Available TechLITE Pen Needle 31 gauge x 5/16 USE DIRECTED . 07/21 completed Not Available Not Available Not Available Britta Becker U-100 Insulin 100 unit/mL (3 mL) subcutaneo us ADMINIST ER 15 UNITS UNDER THE SKIN IN THE EVENING DIRECTED active Not Available Not Available No t Available OneTouch Delica Plus Lancet 33 gauge active Not Available Not Available Not Available OneTouch Delica Plus Lancet 30 gauge active Not Available Not Available Not Available ID NOW COVID-19 Test Kit TEST DIRECTED TODAY 09/20 completed Not Available Not Available Not Available BinaxNOW COVID-19 Ag Self Test kit TEST DIRECTED TODAY 09/20 completed Not Available Not Available Not Available Vitals Date Recorded Body mass index (BMI) Body height Oxygen saturation Oxygen saturation in Arterial blood by Pulse oximetry Heart rate Respiratory rate Body temperature Body weight Systolic blood pressure Diastolic blood pressure Provider Name and Address Organization Details Last Updated DateTime 1 48.7 kg/m2 160.02 cm 99 % 99 % 93 /min 16 /min 97.3 [degF] 954228. 9 g 116 mm[Hg] 72 mm[Hg] Not Available [facility] 3 00:57:17 Date Recorded Body mass index (BMI) Body height Oxygen saturation Oxygen saturation in Arterial blood by Pulse oximetry Heart rate Respiratory rate Body temperature Body weight Systolic blood pressure Diastolic blood pressure Provider Name and Address Organization Details Last Updated DateTime 1 46.4 kg/m2 160.02 cm 99 % 99 % 88 /min 18 /min 98.6 [degF] 710474. 2 g 118 mm[Hg] 60 mm[Hg] Not Available [facility] 3 00:57:18 Date Recorded Body mass index (BMI) Body height Oxygen saturation Oxygen saturation in Arterial blood by Pulse oximetry Heart rate Respiratory rate Body temperature Body weight Systolic blood pressure Diastolic blood pressure Provider Name and Address Organization Details Last Updated DateTime 1 47.5 kg/m2 160.02 cm 98 % 98 % 133 /min 18 /min 97.4 [degF] 101192. 76 g 100 mm[Hg] 60 mm[Hg] Not Available [facility] 00:57:18 Date Recorded Body mass index (BMI) Body height Body weight Provider Name and Address Organization Details Last Updated DateTime 07/21/2022 44.5 kg/m2 162.56 cm 587774.42 g Not Available [facility] 07/28/2022 00:57:28 Date Recorded Body height Provider Name an d Address Organization Details Last Updated DateTime 02/11/2023 162.56 cm KRISTINE Perez [place] [facility] [place] [employer] [facility] 02/11/2023 09:27:29 Social History Question Answer Notes LastModified by Organizat ion Details LastModified Time Tobacco Smoking Status Never Smoker Not Available [facility] 07/28/2022 00:48:13 Do You Have An Advance Directive? No [id number] Information not available 07/28/2022 Do You Wear A Helmet When Biking? No MIGRATION.43279 [id number] Information not available 07/28/2022 What Is Your Level Of Caffeine Consumption? Heavy MIGRATION.08924 [id number] Information not available 07/28/2022 In The 14 Days Before Symptom Onset, Have You Had Close Contact With A Laboratory-confi rmed COVID-19 While That Case Was Ill? No MIGRATION.80750 [id number] Information not available 07/28/2022 In The 14 Days Before Symptom Onset, Have You Had Close Contact With A Person Who Is Under Investigation For COVID-19 While That Person Was Ill? No MIGRATION.91930 [id number] Information not available 07/28/2022 What Type Of Diet Are You Following? REGULAR MIGRATION.77958 [id number] Information not available 07/28/2022 What Is Your Occupation? UNEMPLOYED MIGRATION.52581 [id number] Information not available 07/28/2022 Have There Been Any Changes To Your Family Or Social Situation? No MIGRATION.30590 [id number] Information not available 07/28/2022 Are There Any Guns Present In Your Home? No MIGRATION.43746 [id number] Information not available 07/28/2022 Do You Use Insect Repellent Routinely? No MIGRATION.94762 [id number] Information not available 07/28/2022 Where Do You Live? [place] MIGRATION.80052 [id number] Information not available 07/28/2022 Do You Have A Medical Power Of Relations Manager? No MIGRATION.28855 86029 Information not available 07/28/2022 Do You Have Any Pets? No MIGRATION.62552 93457 Information not available 07/28/2022 What Is Your Relationship Status? MIGRATION.77204 [id number] Information not available 07/28/2022 Do You Use Your Seat Belt Or Car Seat Routinely? Yes MIGRATION.16899 20442 Information not available 07/28/2022 Do You Have Smoke And Carbon Monoxide Detectors In Your Home? Yes MIGRATION.03045 [id number] Information not available 07/28/2022 Are You Passively Exposed To Smoke? No MIGRATION.03249 18510 Information not available 07/28/2022 Are There Any Smokers In Your House? No MIGRATION.20981 10934 Information not available 07/28/2022 Do You Participate In Social [email or web address]? Yes MIGRATION.03888 93892 Information not available 07/28/2022 Do You Feel Stressed (tense, Restless, Nervous, Or Anxious, Or Unable To Sleep At Night)? LM8211-1 But Can Not Sleep MIGRATION.20589 [id number] Information not available 07/28/2022 Do You Use Any Illicit Or Recreational Drugs? No MIGRATION.04072 13628 Information not available 07/28/2022 Do You Use Sunscreen Routinely? No MIGRATION.76608 64493 Information not available 07/28/2022 Has Tobacco Cessation Counseling Been Provided? No MIGRATION.64818 46868 Information not available 07/28/2022 Have You Recently Traveled Abroad? No MIGRATION.86201 07256 Information not available 07/28/2022 Are You Currently In School? No MIGRATION.41369 34671 Information not available 07/28/2022 Do You Have Any Dietary Restrictions? No MIGRATION.63747 75900 Information not available 07/28/2022 Do You Or Have You Ever Used Any Other Forms Of Tobacco Or Nicotine? No MIGRATION.08726 34686 Information not available 07/28/2022 Sex: Female Functional Status Question Answer Note LastModified by Organizat ion Details LastModified Time What is your exercise level? Occasional [id number] Information not available 07/28/2022 Mental Status None recorded. Family History Relationship Description Onset Age of this Age Resolved Age Notes LastModified by Organization Details LastModified Time Father Family history of stroke [id number] Not available 07/28/2022 00:49:05 Father Hypertensive disorder [id number].007 [id number] Not available 07/28/2022 00:49:05 Brother Family history of malignant neoplasm MIGRATION.922 [id number] Not available 07/28/2022 00:49:05 Mother Blood coagulation disorder MIGRATION.295 [id number] Not available 07/28/2022 00:49:05 Medical History Condition Response ARTHRITIS Y DIABETES, TYPE Y Gynecological HistoryNo gynecological history recorded. Obstetrics History GPAL:G 0 P 0 0 0 0 Immunizations Vaccine Type Date Status Note Provider Nam e and Address Organization Details Recorded Time COVID-19, mRNA, LNP-S, PF, 30 mcg/0.3 mL dose 08/27/2020 completed Not Available [facility] 3 01:17:46 Influenza, split virus, quadrivalent, PF 04/07/2020 completed Not Available [facility] 3 01:17:46 Past Encounters Encounter ID Performer Location Encounter Start Date Encounter Closed Date Diagnosis/Indication Diagnosis SNOMED-CT Code Diagnosis ICD10 Code Diagnosis Note [id number] [facility] [address] [facility] [address] [place] [address] 07/30/2020 00:00:00 07/30/2020 10:04:[id number] [facility] [place] [address] [place] [address] 08/04/2020 00:00:00 08/04/2020 15:35:20 [id number] [facility] [place] [address] [facility] [address] [place] [address] 08/13/2020 00:00:00 08/13/2020 14:13:17 [id number] [facility] [place] [address] [place] [address] 10/06/2020 00:00:00 10/06/2020 15:27:56 [id number] [facility] [place] [address] [facility] [address] [place] [address] 10/24/2020 00:00:00 10/24/2020 14:26:59 [id number] [facility] [place] [address] [place] [address] 11/03/2020 00:00:00 11/05/2020 10:22:19 [id number] [facility] [place] [address] [place] [address] 11/05/2020 00:00:00 11/05/2020 17:05:40 [id number] [facility] [place] [address] [place] [address] 11/14/2020 00:00:00 11/14/2020 15:58:40 [id number] [facility] [place] [address] [place] [address] 12/15/2020 00:00:00 12/15/2020 16:39:49 [id number] [facility] [place] [address] [place] [address] 02/06/2021 00:00:00 02/06/2021 14:06:27 [id number] [facility] [place] [address] [place] [address] 02/10/2021 00:00:00 02/10/2021 12:21:38 [id number] [facility] [place] [address] [place] [address] 04/06/2021 00:00:00 04/06/2021 15:22:25 [id number] [facility] [place] [address] [place] [address] 05/12/2021 00:00:00 05/12/2021 16:28:06 [id number] [facility] [place] [address] [place] [address] 07/21/2022 00:00:00 07/21/2022 15:30:50 [id number] CATHERINE Bañuelos [facility] [address] [place] [address] 02/11/2023 09:25:38 02/11/2023 09:53:32 Pain in right hand [id number] M79.641 Health Concerns Section Related Observation LastModified by Organization Detai ls LastModified Time None Recorded Concern Status LastModified by Organization Details LastModified Time None Recorded Advance Directives Directive N: Payers Encounter Date Sequence Insurance Name Policy Number Policy Giraldo Covered Member ID Giraldo Member ID Guarantor Name 02/11/2023 1 [facility] (MEDICAID HMO) [id number] Rachael Dupont [id number] Rachael Dupont OBGyn Episode No OBEpisode recorded.
--- OUTSIDE RECORDS SUMMARY | 2024-08-05 14:34 | XMS_ITS | Clinical Summary ---
Author Organization [facility] Address [address] [place] [address] Care Team Providers Care Tunnel Kiln Operator Name Role Phone Emanuel Huerta MD Primary Care Provid er Allergies Active Allergy Reactions Criticality Noted Date Comments Artificial Plasticizer Unknown 06/05/2021 Cyclobenzaprine Other (See comments) Low 02/12/2019 Spasms , makes RLS worse Medications multivitamin capsuleIndicat ions:Vitamin Deficiency Take 1 capsule by mouth 2 (two) times a day Active calcium carbonate/lia min D3 (CALCIUM 600 + D,3, ORAL)Indicatio ns:supplement Take 1 capsule by mouth 2 (two) times a day. Indications: supplement Active biotin 10,000 mcg capsuleIndicat ions:Biotin Deficiency Take 1 capsule (10,000 mcg total) by mouth daily Active blood glucose diagnostic (OneTouch Verio test strips) strip OneTouch Verio test strips Active blood-glucose meter misc OneTouch Verio Meter Active lancets 33 gauge misc OneTouch Delica Plus Lancet 33 gauge Active clobetasoL (TEMOVATE) 0.05 % creamIndicatio ns:Dyshidrotic eczema Apply topically 2 (two) times a day 60 g 2 06/15/19 23 Active pen needle, diabetic (TRUEplus Pen Needle) 31 gauge x 5/16 needle TRUEplus Pen Needle 31 gauge x 5/16 Active blood glucose diagnostic (True Metrix Glucose Test Strip) strip Active Jardiance 25 mg tablet TAKE 1 TABLET BY MOUTH EVERY DAY 30 tablet 5 12/29/19 24 Active nicotine (NICODERM CQ) [address] 1 patch on the skin daily 30 patch 1 02/02/20 24 Active semaglutide (Rybelsus) 7 mg tablet Take 1 tablet (7 mg total) 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 30 capsule 07/04/19 25 Active nystatin ointment Apply topically 2 (two) times a day 06/20/19 25 Active atorvastatin (LIPITOR) 20 mg tablet TAKE 1 TABLET(20 MG) BY MOUTH EVERY NIGHT 100 tablet 1 07/06/19 25 Active polymyxin B-trimethoprim (POLYTRIM) ophthalmic solution Administer 2 drops into both eyes 4 (four) times a day 10 mL 07/09/19 25 025 Active lisinopriL (PRINIVIL,ZEST RIL) 2.5 mg tabletIndicati ons:Hypertensi on, unspecified type TAKE 1 TABLET(2.5 MG) BY MOUTH DAILY 90 tablet 3 07/23/19 25 Active HYDROcodone-ac etaminophen (NORCO) 10-325 mg per tabletIndicati ons:Pain Take 1 tablet by mouth every 6 (six) hours as needed for pain 60 tablet 07/26/19 25 Active metFORMIN (GLUCOPHAGE) 1,000 mg tablet TAKE 1 TABLET BY MOUTH TWICE DAILY WITH MEALS 60 tablet 5 07/31/19 25 Active rOPINIRole (REQUIP) 1 mg tablet TAKE 1 TABLET(1 MG) BY MOUTH THREE TIMES DAILY 90 tablet 5 07/31/19 25 Active lisinopriL (PRINIVIL,ZEST RIL) 2.5 mg tabletIndicati ons:Hypertensi on, unspecified type Take 1 tablet (2.5 mg total) by mouth daily 90 tablet 3 04/20/20 23 025 Discontinued metFORMIN (GLUCOPHAGE) 1,000 mg tablet TAKE 1 TABLET BY MOUTH TWICE DAILY WITH MEALS 60 tablet 5 01/10/20 24 025 Discontinued rOPINIRole (REQUIP) 1 mg tablet TAKE 1 TABLET(1 MG) BY MOUTH THREE TIMES DAILY 90 tablet 5 03/26/20 24 025 Discontinued HYDROcodone-ac etaminophen (NORCO) 10-325 mg per tabletIndicati ons:Pain Take 1 tablet by mouth every 6 (six) hours as needed for pain 60 tablet 07/11/19 25 025 Discontinued(Re order) Active Problems Problem Noted Date Diagnosed Date Ear pain 10/18/2022 Assessment & Plan (10/18/2022 8:42 AM CDT): Will send Augmentin to patient pharmacy. Patient instructed to follow up with PCP if any worsening symptoms. Patient verbalized understanding and agreed to plan of care at this time. Osteoarthritis 06/05/2021 Adrenal adenoma 04/06/2021 Primary osteoarthritis of left knee 02/05/2021 Overview (02/05/2021): Added automatically from request for surgery [id number] Gastroesophageal reflux disease without esophagi tis 12/31/2020 Thyroid nodule 07/15/2020 S/P laparoscopic sleeve gastrectomy 01/17/2020 Uncontrolled type 2 diabetes mellitus 06/20/2019 Hyperlipidemia 06/20/2019 Fibromyalgia 06/13/2019 Chronic pain 06/13/2019 Depressive disorder 06/13/2019 Neuropathy 06/13/2019 Knee pain 06/07/2016 Encounters Date Type Department Care Team Description 07/17/2024 Results Follow-Up [facility] [address] [place] [phone] Emanuel Huerta MD 07/09/2024 Orders Only [facility] [address] [place] [phone] Emanuel Huerta MD 07/09/2024 Telephone [facility] [address] [place] [phone] Emanuel Huerta MD Symptom Based Call 07/05/2024 2:00 PM BUDGET COORDINATOR Lab [facility] OP Lab [address] [place] [address] Inadequately controlled diabetes mellitus (HCC) 07/05/2024 1:30 PM BUDGET COORDINATOR Office Visit [facility] [address] [phone] Emanuel Huerta MD Annual physical exam (Primary Dx); Inadequately controlled diabetes mellitus (HCC); Numbness in feet; Neuropathy; Benign hypertension; Hyperlipidemia, unspecified hyperlipidemia type; Restless leg syndrome; Fibromyalgia; Chronic pain of right knee; Primary osteoarthritis of right knee; Iron deficiency anemia, unspecified iron deficiency anemia type; Smoker; Morbid obesity with BMI of 40.0-44.9, adult (HCC) 06/20/2024 ACO Quality [facility] Accountable Care Organization [address] [place] [address] Adrienne Mathur MA from Last 3 Months Immunizations Immunization Administration Dates Next Due Influenza, Quadrivalent, Spl it, Preservative Free, Intramuscular 04/27/2023,02/26/2022,04/07/2020 Influenza, Unspecified 02/27/2021(Deferred: [place] ent Refused) ZOSTER Recombinant 03/26/2023 Surgical History Surgery Date Site/Laterality Comments CARPAL TUNNEL RELEASE Right GASTRIC BYPASS TUBAL LIGATION KNEE SURGERY Medical History Medical History Date Comments Hx Other Medical Gastric Reflux Depression Depression Hx Other Medical Headache, migra ine Diabetes mellitus (HCC) Diabetes mellitus Hypertension Type 2 diabetes mellitus (HCC) Sleep apnea Headache Restless leg syndrome Family History Medical History Relation Name Comments Hypertension Other 1 Family history of Hypertension; Seizures Other 2 Family history of Seizure disorder; Stroke Other 3 Family history of Stroke; Relation Name Status Comments Other 1 Other 2 Other 3 Social History Tobacco Use Types Packs/Day Years Used Date Smoking Tobacco: Every Day Cigarettes Smokeless Tobacco: Never Tobacco Cessation:Ready to Q uit: Not Asked; Counseling Given: Not Answered AUDIT-C Answer Date Recorded Q1: How often do you have a drink containing alcohol? Never 04/27/2023 Q2: How many drinks containi ng alcohol do you have on a typical day when you are drinking? Patient does not drink 3 Q3: How often do you have si x or more drinks on one occasion? Never 04/27/2023 PHQ-2 Answer Date Recorded PHQ-2 Total Score 0 07/05/2024 Comments No Sex and Gender Information Value Date Recorded Sex Assigned at Not on file Legal Sex Female 3:23 AM BUDGET COORDINATOR Gender Identity Female 05/29/2021 11:17 AM BUDGET COORDINATOR Sexual Orientation Not on file Obstetrics History Para Term AB IAB SAB Ectopic Multiple Livin g Live Births 2 2 2 Date Outcome GA Total Labor Labor/2nd/3rd Weight Sex Type Anes PTL Gela A1 A5 Name Clin Term Term Last Filed Vital Signs Vital Sign Reading Time Taken Comments Blood Pressure 106/62 07/05/2024 1:12 PM BUDGET COORDINATOR Pulse 88 07/05/2024 1:12 PM BUDGET COORDINATOR Temperature 36.5 C (97.7 F) 07/05/2024 1:12 PM BUDGET COORDINATOR Respiratory Rate 18 07/05/2024 1:12 PM BUDGET COORDINATOR Oxygen Saturation 99% 07/05/2024 1:12 PM BUDGET COORDINATOR Inhaled Oxygen Concentration - - Weight 115.7 kg (255 lb 1.6 oz) 07/05/2024 1:12 PM BUDGET COORDINATOR Height 165.1 cm (5' 5 ) 07/05/2024 1:12 PM BUDGET COORDINATOR Body Mass Index 42.45 07/05/2024 1:12 PM BUDGET COORDINATOR Plan of Treatment Health Maintenance Due Date Last Done Comments Hepatitis C Screening 1966 Dilated Eye Exam 1966 DTaP/Tdap/Td Vaccine (1 - Tdap) 1977 Hepatitis B Screening 1984 Pneumococcal vaccine <65 (1 of 2 - PCV) 1985 Cervical Cancer Screening 09/27/2021 09/27/2018 Zoster Vaccine (2 of 2) 05/21/2023 03/26/2023 Breast Cancer Screening-Mammogram 06/10/2023 023 eGFR 11/05/2023 11/04/2022, 01/28, 08/17/2021, Additional history exists Covid-19 Vaccine (6 - 2023-2 5 season) 2024 03/26/2023, 03/08/2022, 05/21/2021, Additional history exists Influenza Vaccine (#1) 2024 , 02/26/2022, 04/07/2020 Lipid Panel 08/30/2024 08/31/2023, 12/2022, 02/10/2022, Additional history exists Albumin Creatinine Ratio, Urine 11/08/2024 11/09/2023, 11/04/2022, 08/17/2021 Hemoglobin A1C 01/02/2025 07/05/2024, 10/28, 11/04/2022, Additional history exists Depression Screening 07/05/2025 07/05/2024, 04/27/2023, 12/16/2022, Additional history exists Foot Exam 07/05/2025 07/05/2024, 10/2024, 11/09/2023, Additional history exists Regular Well Visit/Exam 18-64 07/05/2025, 07/05/2024, 04/27/2023, Additional history exists Colon Cancer Screening-DNA Stool 02/04/2026 02/05/20 23 Medical Devices Implanted Type Area Gravity Prospecting Observer Helper Device Identifier Shelf Expiration Date Model / Serial / Lot [employer] 5517-F-401 Triathlon Cruciate Retain Bead Knee Left 4 Component Femoral Pa - [id number] Implanted:Qty: 1 on 02/24/2021 by Sandoval Adorno MD at [facility] Left: Knee [employer] 10/03/2025 5517-F-401 / / [id number] [employer] 5536-B-400 Triathlon Coated Knee 4 Baseplate Tibial Tritanium Sterile - [id number] Implanted:Qty: 1 on 02/24/2021 by Sandoval Adorno MD at [facility] Left: Knee [employer] 10/08/2025 5536-B-400 / / [id number] [employer] 5552-L-350 Tritanium 35mm 10mm Asymmetric Knee Component Patellar Metal - [id number] Implanted:Qty: 1 on 02/24/2021 by Sandoval Adorno MD at [facility] Left: Knee [employer] 07/14/2025 5552-L-350 / / [id number] Triathlon Cs Insert #4 11mm Implanted:Qty: 1 on 02/24/2021 by Sandoval Adorno MD at [facility] Knee [employer] 03/20/2025 5531-G-411 -E / [id number] / [id number] Description:[facility] ITEM# [id number] IS ACTIVE PER [email or web address] CHARGE CODE ASSIGNED [id number] COST [id number] EA Procedures Procedure Name Priority Date/Time Associated Diagnosis Comments HEMOGLOBIN A1C Routine 07/05/2024 2:05 PM BUDGET COORDINATOR Inadequately controlled diabetes mellitus (HCC) ALBUMIN CREATININE RATIO, URINE Routine 11/09/2023 2:05 PM CDT Inadequately controlled diabetes mellitus (HCC) STOOL DNA COLOGUARD Routine 02/04/2023 8:45 PM CDT Colon cancer screening COMPREHENSIVE METABOLIC PANEL Routine 11/04/2022 11:59 AM CDT Benign hypertension Hyperlipidemia, unspecified hyperlipidemia type Annual physical exam Uncontrolled type 2 diabetes mellitus with hyperglycemia (HCC) LIPID PANEL Routine 11/04/2022 11:59 AM CDT Benign hypertension Hyperlipidemia, unspecified hyperlipidemia type Annual physical exam Uncontrolled type 2 diabetes mellitus with hyperglycemia (HCC) SCREENING MAMMOGRAM BILATERAL W AMBER Schedule Routine, Read Routine (OP Routine) 06/10/2022 1:19 PM BUDGET COORDINATOR Encounter for screening mammogram for malignant neoplasm of breast HM PAP SMEAR Routine 09/27/2018 from Last 3 Months or Most Recently Relevant to Health Maintenance Results * (ABNORMAL) Hemoglobin A1c (07/05/2024 2:05 PM BUDGET COORDINATOR) Hgb A1C 10.4(H) 4.0 - 5.6 % Comment:[facility] performed by : [facility] [address] [place] [address], [place]., [address] Estimated Average Glucose 252 mg/dL [facility] ARNOLD Comment: The ADA recommends reporting an estimated Average Glucose (eAG) with all Hemoglobin A1c results using the equation derived from a study of 507 normal and diabetic adults. Minority populations were underrepresented and children were not included. (Diabetes Care 31:3530-0801, 2008). The eAG is not equivalent to a fasting glucose. Testing performed by: [address] [address] Blood 07/05/2024 2:05 PM BUDGET COORDINATOR 07/05/2024 6:18 PM BUDGET COORDINATOR Emanuel Huerta MD LAB BLOOD ORDERABLES Final Result Performing Organization Address City/[facility] Co de Phone Number JO[address] [place] [address] * Albumin Creatinine Ratio, Urine (11/09/2023 2:05 PM CDT) Pathologist [facility] Albumin Ur <12.0 mg/L Comment: Interpretive Data No reference range established. Current interpretive data was last revised 2018. Testing performed by: [address] [address] Creatinine Ur 42.3 mg/dL SANTHOSH Comment: Interpretive Data No reference range established. Current interpretive data was last revised 2018. Testing performed by: [address] [address] Albumin Creatinine Ratio, Ur <28 1 - 29 mg/g [facility] Comment:Testing performed by : [address] [address] Urine 11/09/2023 2:05 PM CDT 11/09/2023 4:09 PM CDT Emanuel Huerta MD LAB URINE ORDERABLES Final Result Performing Organization Address City/[facility] Co de Phone Number JOANN[address] [place] [address] * Stool DNA - Cologuard (02/04/2023 8:45 PM CDT) [facility] Stool DNA - Cologuard Negative Negative [facility] (CLIA #:[id number]) Comment: NEGATIVE TEST RESULT. A negative Cologuard result indicates a low likelihood that a colorectal cancer (CRC) or advanced adenoma (adenomatous polyps with more advanced pre-malignant features) is present. The chance that a person with a negative Cologuard test has a colorectal cancer is less than 1 in 1500 (negative predictive value >99.9%) or has an advanced adenoma is less than 5.3% (negative predictive value 94.7%). These data are based on a prospective cross-sectional study of 10,000 individuals at average risk for colorectal cancer who were screened with both Cologuard and colonoscopy. (Nick Lopez et al, N Engl J Med 2014;370(14):8410-7859) The normal value (reference range) for this assay is negative. COLOGUARD RE-SCREENING RECOMMENDATION: Periodic colorectal cancer screening is an important part of preventive healthcare for asymptomatic individuals at average risk for colorectal cancer. Following a negative Cologuard result, the [place] Cancer Society and U.S. Multi-Society Task Force screening guidelines recommend a Cologuard re-screening interval of 3 years. References: [place] [employer] Guideline for Colorectal Cancer Screening: https://www.cancer.org/cancer/edbzm-plzifu-bcuels/efaczejri-lqumwdpix-sukeair/ac s-rec ommendations.html.; Gerardo LIANG, Angle DREW, Donal GarciaK, Colorectal Cancer Screening: Recommendations for Physicians and Patients from the U.S. Multi-Society Task Force on Colorectal Cancer Screening , Am J Gastroenterology 2017; 112:2969-6921. TEST DESCRIPTION: Composite algorithmic analysis of stool DNA-biomarkers with hemoglobin immunoassay. Quantitative values of individual biomarkers are not reportable and are not associated with individual biomarker result reference ranges. Cologuard is intended for colorectal cancer screening of adults of either sex, 45 years or older, who are at average-risk for colorectal cancer (CRC). Cologuard has been approved for use by the U.S. FDA. The performance of Cologuard was established in a cross sectional study of average-risk adults aged 50-84. Cologuard performance in patients ages 45 to 49 years was estimated by sub-group analysis of near-age groups. Colonoscopies performed for a positive result may find as the most clinically significant lesion: colorectal cancer [4.0%], advanced adenoma (including sessile serrated polyps greater than or equal to 1cm diameter) [20%] or non- advanced adenoma [31%]; or no colorectal neoplasia [45%]. These estimates are derived from a prospective cross-sectional screening study of 10,000 individuals at average risk for colorectal cancer who were screened with both Cologuard and colonoscopy. (Nick Lopez et al, N Engl J Med 2014;370(14):1372-5323.) Cologuard may produce a false negative or false positive result (no colorectal cancer or precancerous polyp present at colonoscopy follow up). A negative Cologuard test result does not guarantee the absence of CRC or advanced adenoma (pre-cancer). The current Cologuard screening interval is every 3 years. ([place] Cancer Society and U.S. Multi-Society Task Force). Cologuard performance data in a 10,000 patient pivotal study using colonoscopy as the reference method can be accessed at the following location: www.Jamii/results. Additional description of the Cologuard test process, warnings and precautions can be found at www.Uploadcarerd.com. Stool 02/04/2023 8:45 PM CDT 02/07/2023 3:03 AM CDT Emanuel Huerta MD LAB BODY FLUIDS AND STOOLS ORDERABLES Final Result [facility] (CLIA #:[id number]) [address] [place] [address] * Lipid panel (11/04/2022 11:59 AM CDT) Cholesterol 147 <200 mg/dL [facility] HDL 54 > OR = 50 mg/dL [facility] Triglycerides 136 <150 mg/dL [facility] LDL 71 mg/dL (calc) [facility] Comment: Reference range: <100 Desirable range <100 mg/dL for primary prevention; <70 mg/dL for patients with CHD or diabetic patients with > or = 2 CHD risk factors. LDL-C is now calculated using the Boni calculation, which is a validated novel method providing better accuracy than the Friedewald equation in the estimation of LDL-C. Jeffery ANDREWS et al. PARVEEN. 2013;310(19): 6748-2212 (http://education.[employer]/faq/LWB574) Chol/HDL ratio 2.7 <5.0 (calc) [facility] Non-HDL, (LDL+VLDL) 93 <130 mg/dL (calc) [facility] Comment: For patients with diabetes plus 1 major ASCVD risk factor, treating to a non-HDL-C goal of <100 mg/dL (LDL-C of <70 mg/dL) is considered a therapeutic option. Blood 11/04/2022 11:5 9 AM CDT 11/04/2022 12:00 PM CDT Rachael ALEXANDER LAB BLOOD ORDERABLES Final Res ult [facility] [address] [place] [address] * (ABNORMAL) Comprehensive metabolic panel (11/04/2022 11:59 AM CDT) Glucose 211(H) 65 - 99 mg/dL [facility] Comment: Fasting reference interval For someone without known diabetes, a glucose value >125 mg/dL indicates that they may have diabetes and this should be confirmed with a follow-up test. BUN 20 7 - 25 mg/dL [facility] Creatinine 0.63 0.50 - 1.03 mg/dL [facility] eGFR 104 > OR = 60 mL/min/1. 73m2 [facility] Comment: The eGFR is based on the CKD-EPI 2020 equation. To calculate the new eGFR from a previous Creatinine or Cystatin C result, go to https://www.kidney.org/professionals/ kdoqi/gfr%5Fcalculator BUN/creat ratio NOT APPLICABLE 6 - 22 (calc) [facility] Sodium 141 135 - 146 mmol/L [facility] Potassium, pl 4.6 3.5 - 5.3 mmol/L [facility] Chloride 106 98 - 110 mmol/L [facility] CO2 28 20 - 32 mmol/L [facility] Calcium 9.5 8.6 - 10.4 mg/dL [facility] Protein, sr 6.1 6.1 - 8.1 g/dL [facility] Albumin 3.9 3.6 - 5.1 g/dL [facility] GLOBULIN 2.2 1.9 - 3.7 g/dL (calc) [facility] Alb/glob ratio 1.8 1.0 - 2.5 (calc) [facility] Bilirubin, total 0.7 0.2 - 1.2 mg/dL [facility] Alk phos 76 37 - 153 U/L [facility] AST 14 10 - 35 U/L [facility] ALT (SGPT) 15 6 - 29 U/L [facility] Blood 11/04/2022 11:5 9 AM CDT 11/04/2022 12:00 PM CDT us Rachael ALEXANDER LAB BLOOD ORDERABLES Final Res ult [facility] [address] [address] * SCREENING MAMMOGRAM BILATERAL W AMBER (06/10/2022 1:19 PM BUDGET COORDINATOR) Anatomical Region Laterality Modality Breast Bilateral Mammography Impressions 06/16/2022 8:47 AM BUDGET COORDINATOR BI-RADS ATLAS category (overall): 1 - Negative There is no mammographic evidence of malignancy. A 1 year screening mammogram is recommended. The patient has been or will be contacted. We recommend annual screening mammography for women at average risk of breast cancer beginning at age 40, based on guidelines of the [place] [employer] (ACR Practice Parameter for the Performance of Screening and Diagnostic Mammography) and [place] [employer]. For women with and elevated risk of breast cancer, please refer to the ACR Practice Parameter for specific screening recommendations. The patient will be entered into a reminder system with a target due date of 1 year for her next screening exam. Narrative 06/16/2022 8:47 AM BUDGET COORDINATOR SCREENING MAMMOGRAM BILATERAL W AMBER: 06/10/22 The study was acquired using full field digital technology and interpreted from soft copy. 2D digital mammographic views, as well as 3D digital tomosynthesis were performed in the CC and MLO projections. CLINICAL: Encounter for screening mammogram for malignant neoplasm of breast. No relevant medical history has been documented for this patient. No known family history of breast cancer. COMPARISONS: 07/22/2020 Breast Imaging Screening Outside Reference 04/05/2019 Breast Imaging Screening Outside Reference 02/24/2015 Breast Imaging Screening Outside Reference BREAST TISSUE: The breasts are almost entirely fatty. FINDINGS: No suspicious masses, suspicious calcifications, or other suspicious findings are seen within either breast. There has been no suspicious change. Emanuel Huerta MD IMG MAMMO PROCEDURES Final Result * PAP SMEAR (09/27/2018) Historical Provider HEALTH MAINTENANCE Final Result from Last 3 Months or Most Recently Relevant to Health Maintenance Insurance [facility] Advance Directives For more information, please contact: [phone] * Full Code (Latest Code Status on File) Date Activated Date Inactivated Comments 02/24/2021 1:19 PM 02/25/2021 8:31 PM Care Teams Tunnel Kiln Operator Relationship Specialty Start Date End Date Emanuel Huerta MD [address] [place] [address] PCP - General Family Medicine 06/16/21
--- OUTSIDE RECORDS SUMMARY | 2024-08-05 14:34 | XMS_ITS | Referral Summary ---
Author Organization [facility] Address [address] [place] [address] Care Team Providers Care Supervisor Pullet [employer] Name Role Phone Emanuel Huerta MD Primary Care Provid er Encounters Date Type Department Care Team Description 07/17/2024 Results Follow-Up [facility] [address] [place] [address] [phone] Emanuel Huerta MD 07/09/2024 Orders Only [address] [phone] Emanuel Huerta MD 07/09/[address] [phone] Emanuel Huerta MD Symptom Based Call 07/05/2024 2:00 PM CIRCULAR HEAD SAW OPERATOR Lab [facility] [address] [place] [address] Inadequately controlled diabetes mellitus (HCC) 07/05/2024 1:30 PM CIRCULAR HEAD SAW OPERATOR Office Visit [address] [phone] Emanuel Huerta MD Annual physical exam (Primary Dx); Inadequately controlled diabetes mellitus (HCC); Numbness in feet; Neuropathy; Benign hypertension; Hyperlipidemia, unspecified hyperlipidemia type; Restless leg syndrome; Fibromyalgia; Chronic pain of right knee; Primary osteoarthritis of right knee; Iron deficiency anemia, unspecified iron deficiency anemia type; Smoker; Morbid obesity with BMI of 40.0-44.9, adult ([facility]) 06/20/2024 ACO Quality [facility] [address] [place] [address] Adrienne Mathur MA from Last 3 Months Allergies Active Allergy Reactions Criticality Noted Date [...] OneTouch Verio test strips Active blood-glucose meter [facility] OneTouch Verio Meter Active lancets 33 gauge [facility] OneTouch Delica Plus Lancet 33 gauge Active [...] 1 tablet (7 mg total) by mouth spirits model before breakfast 90 tablet 3 05/16/20 24 [...] (02/05/2021): Added automatically from request for surgery [id number] Gastroesophageal reflux disease without esophagi tis 12/31/2020 Thyroid nodule 07/15/2020 S/P laparoscopic sleeve gastrectomy 01/17/2020 Uncontrolled type 2 diabetes mellitus 06/20/2019 Hyperlipidemia 06/20/2019 Fibromyalgia 06/13/2019 Chronic pain 06/13/2019 Depressive disorder 06/13/2019 Neuropathy 06/13/2019 Knee pain 06/07/2016 Immunizations Immunization Administration Dates Next Due Influenza, Quadrivalent, Spl it, Preservative Free, Intramuscular 04/27/2023,02/26/2022,04/07/2020 Influenza, Unspecified 02/27/2021(Deferred: [place] ent Refused) ZOSTER Recombinant 03/26/2023 Social History Tobacco Use Types Packs/Day Years [...] on file Legal Sex Female 3:23 AM CIRCULAR HEAD SAW OPERATOR Gender Identity Female 05/29/2021 11:17 AM CIRCULAR HEAD SAW OPERATOR Sexual Orientation Not on file Last Filed Vital Signs Vital Sign Reading Time Taken Comments Blood Pressure 106/62 07/05/2024 1:12 PM CIRCULAR HEAD SAW OPERATOR Pulse 88 07/05/2024 1:12 PM CIRCULAR HEAD SAW OPERATOR Temperature 36.5 C (97.7 F) 07/05/2024 1:12 PM CIRCULAR HEAD SAW OPERATOR Respiratory Rate 18 07/05/2024 1:12 PM CIRCULAR HEAD SAW OPERATOR Oxygen Saturation 99% 07/05/2024 1:12 PM CIRCULAR HEAD SAW OPERATOR Inhaled Oxygen Concentration - - Weight 115.7 kg (255 lb 1.6 oz) 07/05/2024 1:12 PM CIRCULAR HEAD SAW OPERATOR Height 165.1 cm (5' 5 ) 07/05/2024 1:12 PM CIRCULAR HEAD SAW OPERATOR Body Mass Index 42.45 07/05/2024 1:12 PM CIRCULAR HEAD SAW OPERATOR Plan of Treatment Not on file Medical Devices Implanted Type Area Steel Burner Device Identifier Shelf Expiration Date Model / Serial / Lot [employer] 5517-F-401 Triathlon Cruciate Retain Bead Knee Left 4 Component Femoral Pa - [id number] Implanted:Qty: 1 on 02/24/2021 by Sandoval Adorno MD at [facility] Left: Knee [employer] 10/03/2025 5517-F-401 / / [id number] [employer] 5536-B-400 Triathlon Coated Knee 4 Baseplate Tibial Tritanium Sterile - [id number] Implanted:Qty: 1 on 02/24/2021 by Sandoval Adorno MD at [facility] Left: Knee [employer] 10/08/2025 5536-B-400 / / [id number] [employer] 5552-L-350 Tritanium 35mm 10mm Asymmetric Knee Component Patellar Metal - [id number] Implanted:Qty: 1 on 02/24/2021 by Sandoval Adorno MD at [facility] Left: Knee [employer] 07/14/2025 5552-L-350 / / [id number] Triathlon Cs Insert #4 11mm Implanted:Qty: 1 on 02/24/2021 by Sandoval Adorno MD at [facility] Knee [employer] 03/20/2025 5531-G-411 -E / [id number] / [id number] Description:[facility] ITEM# [id number] IS ACTIVE PER [employer] DASHBOARD CHARGE CODE ASSIGNED [id number] COST EA.596.41 EA Procedures Procedure Name Priority Date/Time Associated Diagnosis Comments HEMOGLOBIN A1C Routine 07/05/2024 2:05 PM CIRCULAR HEAD SAW OPERATOR Inadequately controlled diabetes mellitus (HCC) ALBUMIN CREATININE [...] Read Routine (OP Routine) 06/10/2022 1:19 PM CIRCULAR HEAD SAW OPERATOR Encounter for screening mammogram for malignant neoplasm of breast HM PAP SMEAR Routine 09/27/2018 from Last 3 Months or Most Recently Relevant to Health Maintenance Results * (ABNORMAL) Hemoglobin A1c (07/05/2024 2:05 PM CIRCULAR HEAD SAW OPERATOR) Hgb A1C 10.4(H) 4.0 - 5.6 % Comment:Testing performed by : [address] [address] Estimated Average Glucose 252 mg/dL [facility] Comment: The ADA recommends reporting an estimated Average Glucose (eAG) with all Hemoglobin A1c results using the equation derived from a study of 507 normal and diabetic adults. Minority populations were underrepresented and children were not included. (Diabetes Care 31:0611-0384, 2008). The eAG is not equivalent to a fasting glucose. Testing performed by: [address] [address] Blood 07/05/2024 2:05 PM CIRCULAR HEAD SAW OPERATOR 07/05/2024 6:18 PM CIRCULAR HEAD SAW OPERATOR Emanuel Huerta MD LAB BLOOD ORDERABLES Final Result Performing Organization Address [facility] Co de Phone Number [facility] [address] [place] [address] * Albumin Creatinine Ratio, Urine (11/09/2023 2:05 PM CDT) Pathologist [facility] Albumin Ur <12.0 mg/L Comment: Interpretive Data No reference range established. Current interpretive data was last revised 2018. Testing performed by: [address] [address] Creatinine Ur 42.3 mg/dL [facility] Comment: Interpretive Data No reference range established. Current interpretive data was last revised 2018. Testing performed by: [address] [address] Albumin Creatinine Ratio, Ur <28 1 - 29 mg/g [facility] Comment:Testing performed by : [address] [address] Urine 11/09/2023 2:05 PM CDT 11/09/2023 4:09 PM CDT Emanuel Huerta MD LAB URINE ORDERABLES Final Result Performing Organization Address City/[facility] Co de Phone Number [facility] [place] [address] * Stool DNA - Cologuard (02/04/2023 8:45 PM CDT) Pathologist [facility] Stool DNA - Cologuard Negative Negative [facility] (CLIA #:[id number]) Comment: NEGATIVE TEST RESULT. A negative Cologuard [...] screened with both Cologuard and colonoscopy. (Nick Perez al, N Engl J Med 2014;370(14):9633-6094) The normal value (reference range) for this assay is negative. COLOGUARD RE-SCREENING RECOMMENDATION: Periodic colorectal cancer screening is an important part of preventive healthcare for asymptomatic individuals at average risk for colorectal cancer. Following a negative Cologuard result, the [place] Cancer Society and U.S. Multi-Society Task Force screening guidelines recommend a Cologuard re-screening interval of 3 years. References: [place] [employer] Guideline for Colorectal Cancer Screening: https://www.cancer.org/cancer/xssmo-sgwdla-kjqalt/jylsrunjs-cezuserki-knxlqnk/ac s-rec ommendations.html.; Gerardo DK, Angle DREW, Donal GarciaK, Colorectal Cancer Screening: Recommendations for Physicians and Patients from the U.S. Multi-Society Task Force on Colorectal Cancer Screening , Am J Gastroenterology 2017; 112:8250-5771. TEST DESCRIPTION: Composite algorithmic analysis of stool [...] screened with both Cologuard and colonoscopy. (Nick Perez al, N Engl J Med 2014;370(14):6923-4686.) Cologuard may produce a false negative or false positive result (no colorectal cancer or precancerous polyp present at colonoscopy follow up). A negative Cologuard test result does not guarantee the absence of CRC or advanced adenoma (pre-cancer). The current Cologuard screening interval is every 3 years. ([place] Cancer Society and U.S. Multi-Society Task Force). Cologuard performance data in a 10,000 patient pivotal study using colonoscopy as the reference method can be accessed at the following location: www.Eventfinda.[employer]/results. Additional description of the Cologuard test process, warnings and precautions can be found at www.TAPQUADrd.com. Stool 02/04/2023 8:45 PM CDT 02/07/2023 3:03 AM CDT Emanuel Huerta MD LAB BODY FLUIDS AND STOOLS ORDERABLES Final Result [facility] (CLIA #:[id number]) [address] [place] [address] * Lipid panel (11/04/2022 11:59 AM CDT) [...] LDL-C. Jeffery ANDREWS et al. PARVEEN. 2013;310(19): 5622-2307 (http://education.Demandbase.[employer]/faq/NKW183) Chol/HDL ratio 2.7 <5.0 (calc) [facility] [...] BLOOD ORDERABLES Final Res ult [facility] [address] [address] * (ABNORMAL) Comprehensive metabolic panel (11/04/2022 11:59 AM CDT) Glucose 211(H) 65 - 99 mg/dL [facility] Comment: Fasting reference interval For someone without known diabetes, a glucose value >125 mg/dL indicates that they may have diabetes and this should be confirmed with a follow-up test. BUN 20 7 - 25 mg/dL [facility] Creatinine 0.63 0.50 - 1.03 mg/dL [facility] eGFR 104 > OR = 60 mL/min/1. 73m2 [facility] Comment: The eGFR is based on the CKD-EPI 2020 equation. To calculate the new eGFR from a previous Creatinine or Cystatin C result, go to https://www.kidney.org/professionals/ kdoqi/gfr%5Fcalculator BUN/creat ratio NOT APPLICABLE 6 - 22 (calc) [facility] Sodium 141 135 - 146 mmol/L [facility] Potassium, pl 4.6 3.5 - 5.3 mmol/L [facility] Chloride 106 98 - 110 mmol/L [facility] CO2 28 20 - 32 mmol/L [facility] Calcium 9.5 8.6 - 10.4 mg/dL [facility] Protein, sr 6.1 6.1 - 8.1 g/dL [facility] Albumin 3.9 3.6 - 5.1 g/dL [facility] GLOBULIN 2.2 1.9 - 3.7 g/dL (calc) [facility] Alb/glob ratio 1.8 1.0 - 2.5 (calc) [facility] Bilirubin, total 0.7 0.2 - 1.2 mg/dL [facility] Alk phos 76 37 - 153 U/L [facility] AST 14 10 - 35 U/L [facility] ALT (SGPT) 15 6 - 29 U/L [facility] Blood 11/04/2022 11:5 9 AM CDT 11/04/2022 12:00 PM CDT us Rachael ALEXANDER LAB BLOOD ORDERABLES Final Res ult [facility] [address] [place] [address] * SCREENING MAMMOGRAM BILATERAL W AMBER (06/10/2022 1:19 PM CIRCULAR HEAD SAW OPERATOR) Anatomical Region Laterality Modality Breast Bilateral Mammography Impressions 06/16/2022 8:47 AM CIRCULAR HEAD SAW OPERATOR BI-RADS ATLAS category (overall): 1 - Negative There is no mammographic evidence of malignancy. A 1 year screening mammogram is recommended. The patient has been or will be contacted. We recommend annual screening mammography for women at average risk of breast cancer beginning at age 40, based on guidelines of the [place] [employer] (ACR Practice Parameter for the Performance of Screening and Diagnostic Mammography) and [place] [employer] Obstetricians and Gynecologists. For women with and elevated risk of breast cancer, please refer to the ACR Practice Parameter for specific screening recommendations. The patient will be entered into a reminder system with a target due date of 1 year for her next screening exam. Narrative 06/16/2022 8:47 AM CIRCULAR HEAD SAW OPERATOR SCREENING MAMMOGRAM BILATERAL W AMBER: 06/10/22 The [...] Most Recently Relevant to Health Maintenance Insurance [facility] Advance Directives For more information, please contact: [phone] * Full Code (Latest Code Status on File) Date Activated Date Inactivated Comments 02/24/2021 1:19 PM 02/25/2021 8:31 PM Care Teams Supervisor [employer] Relationship Specialty Start Date End Date Emanuel Huerta MD [address] [place] [address] PCP - General Family Medicine 06/16/21
--- OUTSIDE RECORDS SUMMARY | 2024-08-05 14:34 | XMS_ITS | Clinical Summary ---
Author Organization [facility] Address [address] [facility] [place] [address] Care Team Providers Care Lead Burner Apprentice Name Role Phone Emanuel Huerta MD Primary Care Provider [phone] Source Comments [facility],non-owned Affiliates and Associated Physician Practices is amultiple site organization consisting of ambulatory clinics and hospital sitesin [place], [place], [place] and [place]. This disclosure is being madepursuant to the Care Everywhere program and may not contain all information available regarding this patient. Last updated 18.[facility] Allergies Active Allergy Reactions Criticality Noted Date Comments Cyclobenzaprine Other 02/12/2019 Spasms , makes RLS worse Pcca Plasticized Base Rash Medium 02/12/2019 Gets hives and rash Medications * Be aware that medications may not be up to date on this document. Alwaysverify current medications with the patient. Medication Sig Dispensed Refills Start Date End Date Status rOPINIRole (REQUIP) 1 MG tablet Take 1 (one) tablet by mouth 3 times daily Active FLUoxetine (PROZAC) 20 MG capsule Take 1 (one) capsule by mouth once daily 04/02/2019 Active lisinopril (PRINIVIL; ZESTRIL) 2.5 MG tablet Take 1 (one) tablet by mouth once daily 06/20/2019 Active atorvastatin (LIPITOR) 20 MG tablet Take 1 (one) tablet by mouth once daily 12/12/2019 Active pregabalin (LYRICA) 150 MG capsule Take 1 (one) capsule by mouth 2 times daily 12/10/2019 Active HYDROcodone-acetamino phen (NORCO) 10-325 MG tablet Take 1 (one) tablet by mouth every 6 hours as needed for Pain Active metFORMIN (GLUCOPHAGE) 1000 MG tablet Take 1 (one) tablet by mouth daily with breakfast Active empagliflozin (JARDIANCE) 25 MG tablet Take 1 (one) tablet by mouth Active Multiple Vitamins-Minerals (CENTRUM VITAMINTS PO) Take 1 tablet by mouth 2 times daily Active Biotin 5000 MCG Take by mouth once daily Active CALCIUM CITRATE 600 mg TABS tablet Take by mouth 2 times daily Active phentermine (Adipex-P) 37.5 MG capsule 03/04/2022 Active semaglutide (Rybelsus) 7 MG tablet Take 1 (one) tablet by mouth once daily 12/30/2023 Active Active Problems Problem Noted Date Diagnosed Date [...] current use of insulin 04/30/2019 Pre-op evaluation Encounters Date Type Department Care Team Description 07/20/2024 Telephone [facility] [address] [place] [address] Judy Choi MD Appointment from Last 3 Months Immunizations Name Administration Dates Next Due Covid Pfizer primary monoval ent 12+ yr 0.3mL Purple cap 08/27/2020,07/31/2020 Family History Medical History Relation Name Comments Cancer - Other Brother 2 pt reported t hat it was due to drugs Hypertension Father Alzheimer's Disease Mother Cancer - Other Paternal Grandfather Cancer - Other Paternal Grandmother Relation Name Status Comments Brother 1 Alive Brother 2 Alive Father Alive Maternal Grandfather Maternal Grandmother Mother Paternal Grandfather Paternal Grandmother Social History Tobacco Use Types Packs/Day Years [...] Mass Index 42.1 02/01/2024 11:00 AM CDT Plan of Treatment Upcoming Encounters Date Type Department Care Team (Late st Contact Info) Description 09/19/2024 3:00 PM CDT Video Visit [facility] [address] [place] [address] 09/19/2024 3:30 PM CDT Video Visit [facility] [address] [place] [address] Maria De Jesus Mcelroy, BILLING CUSTOMER SERVICE REPRESENTATIVE-HEALTH PROMOTION MANAGER [address] [place] [address] Health Maintenance Due Date Last Done Comments CT COLONOGRAPHY - COLON CA SCREENING 1966 FIT - COLON CA SCREENING 1966 FLEX SIG - COLON CA SCREENING 1966 HIV SCREENING 1981 HEPATITIS C SCREENING 04/03/1984 DTAP/TDAP/TD VACCINES (1 - Tdap) 1985 HEPATITIS B VACCINE (1 of 3 - 19+ 3-dose series) 1985 PNEUMOCOCCAL VACCINE 50+ (1 of 2 - PCV) 1985 LUNG CANCER SCREENING 2016 ZOSTER VACCINE (1 of 2) 2016 DIABETES RETINOPATHY SCREENING 04/30/2019 DIABETES-FOOT EXAM WITH MONOFILAMENT 04/30/2019 COVID-19 VACCINE ( season) 2024 08/27/2020, 07/31/2020 INFLUENZA VACCINE (#1) 2024 , 02/26/2022, 04/07/2020 DIABETES-HGB A1C 05/10/2024 11/09/2023, 07/2023, 11/04/2022, Additional history exists DEPRESSION SCREENING 05/30/2024 01/04/2024 DIABETES - URINE PROTEIN SCREENING 05/30/2024 MAMMOGRAM 06/10/2024 06/10/2022, 06/10/2022 COLON MONITORING 06/11/2024 06/11/2019 Colorectal Cancer Screening 06/11/2024 DIABETES-SERUM CREATININE 08/30/20242023, 03/15/2021, 03/15/2021, Additional history exists COLOGUARD (AGES 45-75) - COLON CA SCREENING 02/04/2026 02/04/2023 PAP SMEAR 06/09/2026 06/09/2023 COLONOSCOPY - COLON CA SCREENING 06/11/2029 06/11/2019 HIB VACCINE Aged Out No longer eligi ble based on patient's age to complete this topic HPV VACCINE Aged Out No longer eligi ble based on patient's age to complete this topic MENINGOCOCCAL (Group B) VACCINE Aged Out No longer eligible based on patient's age to complete this topic MENINGOCOCCAL VACCINE Aged Out No carlito lori eligible based on patient's age to complete this topic Procedures Procedure Name Priority Date/Time Associated Diagnosis Comments COMPREHENSIVE METABOLIC PANEL Routine 08/31/2023 Morbid obesity with body mass index (BMI) of 40.0 to 44.9 in adult (HCC) S/P laparoscopic sleeve 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) HEMOGLOBIN A1C Routine 08/31/2023 Morbid obesity with body mass index (BMI) of 40.0 to 44.9 in adult (HCC) S/P laparoscopic sleeve gastrectomy Type 2 diabetes mellitus with other specified complication, unspecified whether senior care insulin use (HCC) Intestinal malabsorption following gastrectomy (HCC) from Last 3 Months or Most Recently Relevant to Health Maintenance Results * HEMOGLOBIN A1C (08/31/2023) Blood BLOOD SPECIMEN WITH EDTA / Unknown 08/31/2023 Maria De Jesus Mcelroy APRN-HEALTH PROMOTION MANAGER LAB - CHEMISTRY ORDERABLES Performing Organization Address [facility] Co de Phone Number OTHER LAB * COMPREHENSIVE METABOLIC PANEL (08/31/2023) Blood BLOOD SPECIMEN / Unknown 08/31/2023 Maria De Jesus Mcelroy BILLING CUSTOMER SERVICE REPRESENTATIVE-HEALTH PROMOTION MANAGER LAB - CHEMISTRY ORDERABLES Performing Organization Address City/[facility]/ZIP Co de Phone Number OTHER LAB from Last 3 Months or Most Recently Relevant to Health Maintenance Advance Directives Documents on File Type Date Recorded Patient Gear Setter Expl anation Adv Directive/Living Will/POA 04/30/2019 * Full Code (Latest Code Status on File) Date Activated Date Inactivated Comments 01/01/2020 10:50 AM 01/02/2020 3:18 PM Care Teams Lead Burner Apprentice Relationship Specialty Start Date End Date Emanuel Huerta MD [address] [facility] [place] [address] [place] [address] PCP - General Family Medicine 12/25/21
--- OUTSIDE RECORDS SUMMARY | 2024-08-05 14:34 | XMS_ITS | Data Portability ---
Author Organization [facility] Address [address] [place] [address] Assessment No assessment recorded. Plan of Treatment Reminders Order Date Submit Date Provider Last Modified By Organization Details Last Modified Time Details Appointments None record ed. Lab None record ed. Referral None record ed. Procedures None record ed. Surgeries None record ed. Imaging None record ed. Medication Orders None record ed. Patient TargetsNo targets recorded. Patient InstructionsNo instructions recorded. Reason for Referral None Reported. Medical Equipment None Reported. Medications Name Sig Start Date Stop Date Status Note LastModified by Organization Details LastModified Time ropinirole 1 mg tablet active Not Available Not Available No t Available topiramate 25 mg tablet active Not Available Not Available No t Available hydrocodone 10 mg-acetaminoph en 325 mg tablet active Not Available Not Available Not Available doxycycline monohydrate 100 mg capsule active Not Available Not Availab le Not Available cephalexin 500 mg capsule active Not Available Not Available N ot Available metformin 1,000 mg tablet active Not Available Not Available Not Available glimepiride 4 mg tablet active Not Available Not Available No t Available orphenadrine citrate ER 100 mg tablet,extende d release active Not Available Not Available No t Available diclofenac sodium 75 mg tablet,delayed release active Not Available Not Available Not Available fluoxetine 20 mg capsule active Not Available Not Available N ot Available amoxicillin 875 mg-potassium clavulanate 125 mg tablet active Not Available Not Availabl e Not Available Lyrica 75 mg capsule active Not Available Not Available Not Available alogliptin 25 mg tablet active Not Available Not Available No t Available True Metrix Glucose Test Strip active Not Available Not Available Not Available Basaglar KwikPen U-100 Insulin 100 unit/mL (3 mL) subcutaneous active Not Available Not Available Not Available TRUEplus Pen Needle 31 gauge x 5/16 active Not Available Not Availabl e Not Available Vitals None Recorded Social History None recorded. Functional Status None recorded. Mental Status None recorded. Family History Nothing Reported. Medical History No medical history recorded. Gynecological HistoryNo gynecological history recorded. Obstetrics History GPAL:G 0 P 0 0 0 0 Past Encounters Encounter ID Performer Location Encounter Start Date Encounter Closed Date Diagnosis/Indication Diagnosis SNOMED-CT Code Diagnosis ICD10 Code Diagnosis Note [id number] Emily Mendoza MD [facility] [address] [place] [address] 11/06/2018 15:20:30 11/06/2018 23:32:26 Health Concerns Section Related Observation LastModified by Organization Detai ls LastModified Time None Recorded Concern Status LastModified by Organization Details LastModified Time None Recorded Advance Directives Directive None Recorded Payers Encounter Date Sequence Insurance Name Policy Number Policy Giraldo Covered Member ID Giraldo Member ID Guarantor Name 11/06/2018 1 [facility] (MEDICAID HMO) [id number] Rachael Dupont [id number] Rachael Dupont OBGyn Episode No OBEpisode recorded.
--- OUTSIDE RECORDS SUMMARY | 2024-08-05 14:34 | XMS_ITS | Continuity of Care Document ---
Author Organization [facility] Address [address] [place] [address] Phone Care Team Providers Care Drafter Civil (Cad) Name Role Phone Dejan Heath MD Unavailable Unavailable Allergies, Adverse Reactions, Alerts Substance Reaction Status Criticality No Known Allergies Active No Inform ation Medications Medication Instructions Dosage Effective Dates (start - stop) Status Comments Lantus 100 unit/mL subcutaneous solution inject by subcutaneous route as per insulin protocol 0.00 - Active use 25 units after dinner Prozac 20 mg capsule take 1 Capsule by oral route every day in the morning 20 MG - Active metformin 1,000 mg tablet take 1 tablet by oral route 2 times every day with morning and evening meals 1000 MG - Active Procedures Procedure Date OFFICE/OUTPATIENT VISIT, EST PREV VISIT, NEW, AGE 40-64 OFFICE/OUTPATIENT VISIT, NEW Advance Directives Directive Yes / No Effective Date File Name No Information Encounters Encounter Description Practice Location Reason(s) For Visit Diagnoses Date Provider Providers Copied on Encounter [facility], [address] [place], [id number], [place] tel:[phone] [facility] No Information 6 Kumar Wylie. [address] [place], [place], [address] , [place]. tel:[phone] OFFICE/OUTPA TIENT VISIT, EST [facility], [address] [place], [place], [address], [place] tel:[phone] [facility] Medicine DM (chief complaint) anxiety1 (chief complaint) knee pian1 (chief complaint) sleep apnea1 (chief complaint) Pain in unspecified kneeType 2 diabetes mellitus without complicationsDepres sionSleep apnea Jan- 6 Kumar Wylie. [address], [place], [place], [address] , [place]. [phone] Referring Provider: Dejan Heath, [address], [place], [place], [address]. tel:[phone] PREV VISIT, NEW, AGE 40-64 [facility], [address] [place], [place], [address], [place] [phone] [facility] Medicine PHysical (chief complaint) Encounter for general adult medical exam w abnormal findingsType 2 diabetes mellitus without complicationsRestle ss Legs SyndromeDepression Jan- 6 Kumar Wylie. [address], [place], [place], [address] , [place]. [phone] Referring Provider: Rima Palmer [facility] [address], [place], [place], [address]. tel:[phone] Family History Family Member Type Diagnosis Age At Onset Brother Problem (finding) Alive and well Father Problem (finding) Hypertension Mother Problem (finding) Alzheimer's disease Father Problem (finding) Seizure disorder Payers Payer name Insurance type Covered democrat ID Authoriza tion(s) No Information Social History Type Description Quantity Date Captured Comments Alcohol Use Details Unknown Caffeine Use Details Unknown Tobacco Use Status Smoking Status No Information Sex Female Chief Complaint And Reason For Visit No Information Plan Of Treatment Date Type Action Status Referral Ordered: Orthopedic Surgery (related to Pain in unspecified knee) ordered Referral Ordered: Endocrinology, Diabetes and Metabolism (related to Type 2 diabetes mellitus without complications) ordered Referral Ordered: Referrals: Endocrinology, Diabetes and Metabolism. Evaluate and treat ordered Referral Ordered: Referrals: Orthopedic Surgery. Evaluate and treat ordered Referral Ordered: MAMMOGRAM, SCREENING ordered History Of Present Illness Encounter Date Complaint History Of Prese nt Illness DM Pt has poorly co ntrolled DM. Her recent A1c last month was 10.4. Pt states that her BG is around 200. Pt denies any hypoglycemia. Pt is on metformin, gipizide, trajenta and tresiba. Pt denies any polyuria, polydipsia anxiety1 Pt has chronic a nxeity and depression. Pt takes prozac. Pt needs refilled. Pt doing ok with prozac Pt denies any suicidal or homcidial thought knee pian1 Pt c/o chronic b ilateral knee pain. Pt was getting morphine from pain amnagement and she was released by the pain management. Pt could not find new pain management. Pt denies any swelling or redness. Pt told me she has menisucs tear? sleep apnea1 Pt has sleepapne a. Pt uses CPAP nightly and doing well. PT uses at least 4-5 hours. Pt denies any snroning or any fatigue PHysical Pt needs annual physical. pt has DM. Pt takes glipizide, trajenta and tresiba and metformin. Pt has chronic anxiety an ddepression. Pt takes prozac and doing ok. pt denie sany suicial or homicidal thought. Pt denies any cyring spell. Pt has restless leg syndrome and she takes requp at night. Pt also takes morphine for chronic knee pain. Pt was seeing pain managmeent but she was discharged for unknown reason. Pt denies any other complaints. Pt states that her BG is around 200 despite on metfomrin, glipizide, trajenta and tresiba. Pt denies any hypoglycemia Instructions Date Instruction Additional Infor ezequiel Prescribed Activity and Exercise Education Related to Dietary Surveillance and Counseling Prescribed Diet Educ ation/Lifestyle Education Regarding Diet Related to Dietary Surveillance and Counseling Prescribed Activity and Exercise Education Related to Dietary Surveillance and Counseling Prescribed Diet Educ ation/Lifestyle Education Regarding Diet Related to Dietary Surveillance and Counseling Assessments Type Assessment Date No Information
--- OUTSIDE RECORDS SUMMARY | 2024-08-05 14:34 | XMS_ITS | Referral Summary ---
Author Organization [facility] Address [address] [place] [address] Care Team Providers Care Ginner Name Role Phone Emanuel Huerta MD Primary Care Provider [phone] Source Comments [facility],non-owned Affiliates and Associated Physician Practices is amultiple site organization consisting of ambulatory clinics and hospital sitesin [place], [place], [place] and [place]. This disclosure is being madepursuant to the Care Everywhere program and may not contain all information available regarding this patient. Last updated 18.[facility] Encounters Date Type Department Care Team Description 07/20/2024 Telephone [facility] Management Services [address] [place] [address] Judy Choi MD Appointment from Last 3 Months Allergies Active Allergy [...] use of insulin 04/30/2019 Pre-op evaluation Immunizations Name Administration Dates Next Due Mani Wagoner primary monoval ent 12+ yr 0.3mL Purple cap 08/27/2020,07/31/2020 Social History Tobacco Use Types Packs/Day Years [...] Mass Index 42.1 02/01/2024 11:00 AM CDT Functional Status Functional Status Response Date of Assess ment Is person deaf or have serious hearing difficult y? No 10/27/2022 Is person blind or have serious difficulty seein g? No 10/27/2022 Does person have serious dif ficulty walking/climbing stairs? No 10/27/2022 Does person have difficulty dressing/bathing? No 10/27/2022 Does person have difficulty doing errands alone? No 10/27/2022 Cognitive Status Response Date of Assessm ent Does person have difficulty concentrating/remembering/making decisions? No 10/27/2022 Plan of Treatment Upcoming Encounters Date Type Department Care Team (Late st Contact Info) Description 09/19/2024 3:00 PM CDT Video Visit [facility] [address] [place] [address] 09/19/2024 3:30 PM CDT Video Visit [facility] [address] [place] [phone] Maria De Jesus Mcelroy, MOBILE PATROL OFFICER-RUBBER WORKER [address] [place] [address] Procedures Procedure Name Priority Date/Time Associated Diagnosis Comments COMPREHENSIVE METABOLIC PANEL Routine 08/31/2023 Morbid obesity with body mass index (BMI) of 40.0 to 44.9 in adult ([facility]) S/P laparoscopic sleeve 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) HEMOGLOBIN A1C Routine 08/31/2023 Morbid obesity with body mass index (BMI) of 40.0 to 44.9 in adult ([facility]) S/P laparoscopic sleeve gastrectomy Type 2 diabetes mellitus with other specified complication, unspecified whether fci insulin use ([facility]) Intestinal malabsorption following gastrectomy (HCC) from Last 3 Months or Most Recently Relevant to Health Maintenance Results * HEMOGLOBIN A1C (08/31/2023) Blood BLOOD SPECIMEN WITH EDTA / Unknown 08/31/2023 Maria De Jesus Mcelroy MOBILE PATROL OFFICER-RUBBER WORKER LAB - CHEMISTRY ORDERABLES Performing Organization Address [facility] Co de Phone Number OTHER LAB * COMPREHENSIVE METABOLIC PANEL (08/31/2023) Blood BLOOD SPECIMEN / Unknown 08/31/2023 Maria De Jesus Mcelroy MOBILE PATROL OFFICER-RUBBER WORKER LAB - CHEMISTRY ORDERABLES Performing Organization Address [facility] Co de Phone Number OTHER LAB from Last 3 Months or Most Recently Relevant to Health Maintenance Advance Directives Documents on File Type Date Recorded Patient Sales Assistant Displays Expl anation Adv Directive/Living Will/POA 04/30/2019 * Full Code (Latest Code Status on File) Date Activated Date Inactivated Comments 01/01/2020 10:50 AM 01/02/2020 3:18 PM Care Teams Ginner Relationship Specialty Start Date End Date Emanuel Huerta MD [address] [facility] [address] [place] [address] PCP - General Family Medicine 12/25/21
--- OUTSIDE RECORDS SUMMARY | 2024-08-05 14:34 | XMS_ITS | Continuity of Care Document ---
Author Organization [facility] Address [address] [place] [address] Phone Care Team Providers Care Upper Extremity Surgeon Name Role Phone Dejan Heath MD Unavailable [...] Diagnoses Date Provider Providers Copied on Encounter [facility], [address], [id number], [place] tel:[phone] [facility] No Information 6 Kumar Wylie. [address], [place], [address] , [place]. tel:[phone] OFFICE/OUTPA TIENT VISIT, EST [facility], [address] [place], [place], [address], [place] tel:[phone] [facility] Medicine DM (chief complaint) anxiety1 (chief complaint) knee pian1 (chief complaint) sleep apnea1 (chief complaint) Pain in unspecified kneeType 2 diabetes mellitus without complicationsDepres sionSleep apnea Jan- 6 Kumar Wylie. [address], [place], [place], [address] , [place]. [phone] Referring Provider: Dejan Heath, [address], [place], [place], [address]. tel:[phone] PREV VISIT, NEW, AGE 40-64 [facility], [address], [place], [place], [address], [place] [phone] [facility] Medicine PHysical (chief complaint) Encounter for general adult medical exam w abnormal findingsType 2 diabetes mellitus without complicationsRestle ss Legs SyndromeDepression Jan- 6 Kumar Wylie. [address], [place], [place], [address] , [place]. [phone] Referring Provider: Rima Palmer [facility] [address], [place], [place], [address]. tel:[phone] Family History Family Member Type Diagnosis Age At Onset Brother Problem (finding) Alive and well Father Problem (finding) Hypertension Mother Problem (finding) Alzheimer's disease Father Problem (finding) Seizure disorder Payers Payer name Insurance type Covered constitution party ID Authoriza tion(s) No Information Social History [...]
--- OUTSIDE RECORDS SUMMARY | 2024-08-05 14:34 | XMS_ITS | Data Portability ---
Author Organization [facility] Address [address] [address] [place] [address] Care Team Providers Care Vehicle Technician Name Role Phone JUDITH TAYLOR Primary Care Provider [phone] Assessment Encounter Date Assessment Date Assessment LastModified by Organization Details LastModified Time 06/09/2023 06/09/2023 Annual gynecological exam performed. Patient will come back in a year unless there are new symptoms. Not available 06/09/2023 09:23:57 Plan of Treatment Reminders Order Date Submit Date Provider Last Modified By Organization Details Last Modified Time Details Appointments None recorded. Lab None recorded. Referral None recorded. Procedures None recorded. Surgeries None recorded. Imaging MAMMO, screening, bilateral 2023 024 [email or web address] [facility], [address], [place], [address], 4 10:14:07 Medication Orders nystatin-t riamcinolo ne 100,000 unit/gram- 0.1 % topical ointment 2023 024 [id number], [address], [place], [place], [id number], 4 10:51:53 Patient TargetsNo targets recorded. Patient InstructionsNo instructions recorded. Reason for Referral None Reported. 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 Elect zachariah sagastume payal d by Adam Parker , CT on 2023 at 2:13 PM ----- ----- ----- ----- ----- ----- ----- ----- ----- ----- ----- ----- ----- ----- ----- ----- ----- ---- HPV RESUL TS: HPV mRNA E6/E7 : No HPV mRNA Detec germain NOTE: This high risk HPV mRNA assay detec ts fourt een high- risk HPV types (16, 18, 31, 33, 35, 39, 45, 51, 52, 56, 58, 59, 66, 68) witho ut diffe renti ation . COMME NT: This speci men was revie wed by a Cytot echno logis t and/o r Patho logis t (as indic ated in this repor t) after evalu ation using the Thinp rep Imagi ng Syste m. CLINI MATILDA INFOR MATIO N: Menst rual Statu s: LMP (if appli cable ): Clini matilda Histo ry/Pr eviou s Pap: Type of Neopl marily (if appli cable ): Signi ficestrada t Clini matilda Findi ngs: Other Histo ry: Hormo jin (if appli cable ): PAP EDUCA CAMACHO L NOTE: The Pap Test is a scree ibrahima test with an inher ent false negat peter rate. Liqui d-bas ed sampl ing may decre ase, but will not elimi brandon, false negat peter resul ts. A negat peter resul t does not precl ude the prese nce and/o r devel opmen t of disea se, since the prese nce of abnor mal cells in the sampl e depen ds on the locat ion of the lesio n and sampl ing techn ique. Victoriano nued regul ar scree ibrahima is the best metho d of cance r preve ntion . If repor germain cytol ogic findi ng do not corre late with physi matilda and/o r histo rical findi ngs, furth er inves tigat ion is recom sharmin d, as clini sheeba adams nted. Not Available [facility] ([facility]) [address], [place], [address], 06/13/2023 15:17:16 Result Notes None recorded. Procedures Surgical History Date Name Laterality Status Provider Name and Address Organization Details Recorded Time 06/09/19 24 IUD Removal completed Jillian Posadas [facility]- [address], [place], [address], [facility] 06/14/2023 11:45:33 05/30/19 22 total knee replacement completed [facility] 06/09/2023 09:47:13 05/30/19 21 laparoscopic sleeve gastrectomy completed [facility] 06/09/2023 09:47:50 09/28/19 19 Date of Last Pap Smear completed [facility] 06/09/2023 09:25:39 05/30/18 88 Tubal Ligation completed [facility] 06/09/2023 09:27:32 05/30/18 68 hernia repair completed Monica Dunlap [facility] 06/09/2023 09:47:35 colonoscopy completed Jillian Posadas [facility]- [address], [place], [address], [facility] 06/09/2023 09:58:59 Imaging Results None recorded. Procedure Notes None recorded. Medical Equipment None Reported. Medications Name Sig Start Date Stop Date Status Note LastModified by Organization Details LastModified Time Mirena 21 mcg/24 hr (up to 8 years) 52 mg intrauter ine device 06/09 completed Prescrib ed Elsewher e: Yes Loca tion: [facility] odify By: mary sainzunter DateTime : 09/28/19 19 11:30:00 AM Not Available Not Available Not Available metformin 500 mg tablet take 1 tablet by oral route 2 times every day with morning and evening meals 06/09 completed Prescrib ed Elsewher e: No Locat ion: [facility] odify By: gage Patricio ncounter DateTime : 12/25/19 14 02:00:00 PM Not Available Not Available Not Available promethaz ine-DM 6.25 mg-15 mg/5 mL oral syrup TAKE 5 ML BY MOUTH EVERY 4 TO 6 HOURS NEEDED FOR COUGH active Not Available Not Available No t Available atorvasta tin 20 mg tablet active Not Available Not Available Not Available ropinirol e 1 mg tablet Take 1 tablet 3 times a day by oral route. active Not Available Not Available No t Available benzonata te 200 mg capsule TAKE 1 CAPSULE BY MOUTH THREE TIMES DAILY NEEDED FOR COUGH active Not Available Not Available No t Available benzpheta mine 50 mg tablet take 1 tablet by oral route every day 09/27 completed Prescrib ed Elsewher e: Yes Loca tion: [facility] odify By: mary Patricio ncounter DateTime : 02/13/20 15 11:30:00 AM Not Available Not Available Not Available hydrocodo ne 10 mg-acetam inophen 325 mg tablet TAKE 1 TABLET BY MOUTH EVERY 6 HOURS NEEDED FOR PAIN active Not Available Not Available No t Available nystatin- triamcino lone 100,000 unit/gram -0.1 % topical ointment APPLY TO THE AFFECTED AREA(S) BY TOPICAL ROUTE 2 TIMES PER DAY active Not Available Not Available No t Available metformin 1,000 mg tablet TAKE 1 TABLET BY MOUTH TWICE DAILY WITH MEALS active Not Available Not Available No t Available triamcino lone acetonide 0.1 % topical ointment MIX WITH NYSTATIN AND APPLY TO THE AFFECTED AREA TWICE DAILY active Not Available Not Available No t Available nicotine 21 mg/24 hr daily transderm al patch APPLY 1 PATCH TOPICALL Y TO THE SKIN DAILY active Not Available Not Available No t Available diclofena c sodium 75 mg tablet,de layed release take 1 tablet by oral route 2 times every day 06/09 completed Prescrib ed Elsewher e: Yes Loca tion: [facility] odify By: mary sainzunter DateTime : 09/28/19 19 11:30:00 AM Not Available Not Available Not Available mupirocin 2 % topical ointment APPLY TOPICALL Y TO THE AFFECTED AREA THREE TIMES DAILY active Not Available Not Available No t Available Requip 0.25 mg tablet take 1 tablet by oral route 3 times every day 06/09 completed Prescrib ed Elsewher e: Yes Loca tion: [facility] odify By: marko duff DateTime : 02/13/20 15 11:30:00 AM Not Available Not Available Not Available methylpre dnisolone 4 mg tablets in a dose pack FOLLOW PACKAGE DIRECTIO NS active Not Available Not Available No t Available fluoxetin e 20 mg capsule Take 1 capsule every day by oral route. active Not Available Not Available No t Available lisinopri l 2.5 mg tablet Take 1 tablet every day by oral route. active Not Available Not Available No t Available phentermi ne 37.5 mg capsule active Not Available Not Available Not Available glipizide 5 mg tablet take 1 tablet by oral route 2 times every day before meals 09/27 completed Prescrib ed Elsewher e: Yes Loca tion: [facility] odify By: mary duff DateTime : 02/13/20 15 11:30:00 AM Not Available Not Available Not Available amoxicill in 875 mg-potass ium clavulana te 125 mg tablet TAKE 1 TABLET BY MOUTH EVERY 12 HOURS active Not Available Not Available No t Available Bactrim DS 800 mg-160 mg tablet take 1 tablet by oral route every 12 hours 02/12 completed Prescrib ed Elsewher e: No Locat ion: [facility] odify By: marko sainzunter DateTime : 01/01/20 14 10:48:22 AM Not Available Not Available Not Available azithromy shania 500 mg tablet TAKE 1 TABLET BY MOUTH EVERY DAY active Not Available Not Available No t Available nitrofura ntoin monohydra te/macroc rystals 100 mg capsule TAKE 1 CAPSULE BY MOUTH EVERY 12 HOURS FOR 5 DAYS active Not Available Not Available No t Available pregabali n 150 mg capsule Take 1 capsule twice a day by oral route. active Not Available Not Available No t Available Lyrica 75 mg capsule take 1 capsule by oral route 2 times every day 06/09 completed Prescrib ed Elsewher e: No Locat ion: [facility] odify By: marko Patricio ncounter DateTime : 09/06/19 18 03:00:00 PM Not Available Not Available Not Available calcium active Not Available Not Avail able Not Available biotin active Not Available Not Availa ble Not Available multivita min active Not Available Not Available Not Available Januvia 100 mg tablet take 1 tablet by oral route every day 02/12 completed Prescrib ed Elsewher e: No Locat ion: [facility] odify By: marko sainzjuan daniel DateTime : 12/25/19 14 02:00:00 PM Not Available Not Available Not Available Tradjenta 5 mg tablet take 1 tablet by oral route every day 09/27 completed Prescrib ed Elsewher e: Yes Loca tion: [facility] odify By: ammax sainzjuan daniel DateTime : 02/13/20 15 11:30:00 AM Not Available Not Available Not Available Jardiance 25 mg tablet TAKE 1 TABLET BY MOUTH EVERY DAY active Not Available Not Available No t Available Basaglarielle McikPen U-100 Insulin 100 unit/mL (3 mL) subcutane ous inject by subcutan eous route as per insulin protocol 06/09 completed Prescrib ligia patricio: Yes Loca tion: [facility] odify By: mary duff DateTime : 09/28/19 11:30:00 AM Not Available Not Available Not Available Rybelsus 7 mg tablet TAKE ONE TABLET BY MOUTH EVERY MORNING BEFORE BREAKFAS T active Not Available Not Available No t Available [facility] COVID-19 Antigen Rapid Home Test kit USE NEEDED active Not Available Not Available No t Available Vitals Date Recorded Body height Body mass index (BMI) Body weight Systolic blood pressure Diastolic blood pressure Provider Name and Address Organization Details Last Updated DateTime 06/09/2023 165.1 cm 43.4 kg/m2 733393.6 1 g 118 mm[Hg] 77 mm[Hg] Monica Fabi [facility] 09:45:15 Social History Question Answer Notes LastModified by Organizat ion Details LastModified Time Tobacco Smoking Status Current Every Day Smoker Monica Dunlap [facility], [facility] 06/09/2023 09:52:24 What Is Your Level Of Alcohol Consumption? None Information not available 06/09/2023 Are You Blind Or Do You Have Difficulty Seeing? No Information not available 06/09/2023 What Is Your Level Of Caffeine Consumption? Moderate Information not available 06/09/2023 Are You Deaf Or Do You Have Serious Difficulty Hearing? No Information not available 06/09/2023 Are There Any Guns Present In Your Home? No Information not available 06/09/2023 Do You Have Smoke And Carbon Monoxide Detectors In Your Home? Yes Information not available 06/09/2023 How Much Tobacco Do You Smoke? 1 PPW Information not available 06/09/2023 Do You Use Sunscreen Routinely? Yes Information not available 06/09/2023 Sex: Unknown Functional Status Question Answer Note LastModified by Organizat ion Details LastModified Time Do you have difficulty walking or climbing stairs? No Information not available 06/09/2023 Are you able to walk? YESWOREST Information not available 06/09/2023 Are you able to care for yourself? Yes Information not available 06/09/2023 Do you have difficulty dressing or bathing? No Information not available 06/09/2023 Mental Status None recorded. Family History Relationship Description Onset Age of this Age Resolved Age Notes LastModified by Organization Details LastModified Time Mother Cyst of ovary Not available 2023 09:52:44 Father Hypertensive disorder Not available 2023 09:52:51 Medical History Condition Response Allergies (Food, seasonal, environmental ) N Other N Drug/Latex Allergies/Reactions N Breast Cancer N Blood Transfusion N Dermatologic Disorders N Lung Disease N Defects or Inherited Disease N Breast Problem N Gestational Diabetes N Hematologic disorders N Anesthesia Complications N History of STI N Deep Vein Thrombosis N Polycystic ovary syndrome Y Anxiety Disorder N Autoimmune disease N Arthritis N Polyps N Infertility N Acid Reflux (GERD) N History of abnormal pap N Cancer N Varicosities N Stroke N Neurologic/Epilepsy N Endometriosis N High Cholesterol N Fibromyalgia Y Headaches N Kidney Disease N Heart Problems N Thyroid Problems Y Kidney or Bladder Problems N GI Problems N Eating Disorder N Anemia N Art (IVF or FET) N Psychiatric Illness N Ovarian Cancer N Diabetes N Pulmonary (TB, Asthma) N Hepatitis/Liver Disease N No Past Medical History N Eczema N Urinary Tract Infection N Abuse/Domestic Violence N Asthma N Trauma/Violence N Depression/ depression Y Heart Disease N Pre-Eclampsia N Hypertension N Osteoporosis N Thrombophilias N Gynecological History Statement/Question Response Abnormal Pap N Sexually Active? Y STIs/STDs N Menses Monthly N Age of first menstrual cycle 9 HPV Vaccine N Date of Last Pap Smear 09/27/2018 Sexual Problems? N Current Control Method Menopause LMP Unknown Obstetrics History GPAL:G 2 P 2 0 0 2 Type Value Full Term 2 Living 2 Total 2 Past Encounters Encounter ID Performer Location Encounter Start Date Encounter Closed Date Diagnosis/Indication Diagnosis SNOMED-CT Code Diagnosis ICD10 Code Diagnosis Note [id number] [facility] [address] [address] 06/09/2023 09:15:18 06/09/2023 10:11:01 Gynecologic examination 37125918 Z01.419 Take Calcium with Vitamin D 12-1500mg daily. Do monthly self breast exams. It is advised to get annual flu shot in the fall and she could obtain at [facility] or [facility] care clinic. If you haven't received the Tdap vaccine in the last 10 years you should obtain one as well. Have mammogram yearly, bone density every 2-3 years and colonoscop y every 5-10 years depending on findings and history. Engage in daily exercise of low impact aerobic exercise 45-60 minutes 4-5 times weekly. Avoid tobacco and illicit drugs as well as using moderation with alcohol intake less than 1-2 8 oz beverages daily. This lifestyle behavior pattern will lead to less health conditions and longer life span. If BMI greater than 25 weight watchers or dietary consult advised. Questions have been answered. Patient appears to understand instructio ns, but if you have any further questions call or respond to this email Pap/hpv sentSTD Screen declinedGe netic Screen discussedC olon Screen-Col oguard (2022 WNL)Dexa Screen [facility] PCP Screening mammography 24 424122 Z12.31 Removal of intrauterine contraceptive device 1033498339 Z30.432 It was explained that she may have bleeding or spotting after the removal of the device today as well. If cannot see the strings of this device we will need to get an US image to make that the device is still in place and not in an unobtainab le position. She expressed understand ing of all the above instructio ns. Vaginitis [id number] N76.0 Use prn if vaginal moisturizi ng is not enough on some days.Will call if any infection results return + Health Concerns Section Related Observation LastModified by Organization Detai ls LastModified Time None Recorded Concern Status LastModified by Organization Details LastModified Time None Recorded Advance Directives Directive None Recorded Payers Encounter Date Sequence Insurance Name Policy Number Policy Giraldo Covered Member ID Giraldo Member ID Guarantor Name 06/09/2023 1 [facility] (MEDICAID HMO) [id number] Rachael Dupont [id number] Rachael Dupont Notes Date Note Type Note Provider Name and Address Organization Details Recorded Time 06/09/2023 text/html 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 Post-MenopausalRe ported bypatient.Menopau marii Symptoms:no menopausal symptoms; normal vaginal lubrication Vaginal Bleeding:history of menopause having occurred; no history of post menopausal bleeding Urinary Symptoms:no hematuria; no incontinence; no nocturia; no urinary frequency Vulva:no genital lesion; no vulvar atrophy Vagina:normal vaginal discharge; no vaginal atrophy Breast:no breast lump; no nipple discharge; no breast pain Sexual Complaints:no sexual complaints Psychological Symptoms:no depression; no anxiety Preventive Measures:encourag e regular mammograms starting age 40; encourage self breast examination; encourage regular exercise; encourage no tobacco use; needs to schedule mammogram; history of recent colonoscopy (cologuard) Jillian Posadas, [facility]- [address], [place], [address], [facility] 06/14/2023 11:45:38 OBGyn Episode Ob Episode Information Episode Created Date Number of Fetuses Patient Bloodtype Patient rh Status Prepregnancy Weight lbs Domestic Partner Domestic Partner Phone Father Name Filling Layer Up Status 06/09/19 24 1 CLOSED Fetus Data First Name Last Name Admitted to NICU Weight (g) Sex Living Outcome Pediatric Complications Fetus ID Race Codes Race Delivery Type [id number] F Full Term [id number] Vaginal Delivery Robe Calculation Initial Robe Date Initial Exam Date Initial Exam Provider Initial Ultrasound Date Last Menstrual Period Date Ultra Sound Weeks Gestation 0 Eighteen To Twenty Week Robe Update Ultra Sound Date Fundal Height At Umbil Quickening Date Ultra Sound Latest Weeks Gestation Final Robe Confirmed By Final Robe Confirmed Date Final Robe Date Ultra Sound Latest Days Gestation 0 0 Menstrual History Last Menstrual Date Menses Monthly On Bcp Conception Prior Menses Frequency Hcg Plus Date Menarche Onset Age Delivery Information Delivery Date Delivery Type Labor Anesthesia Weeks Gestation Incision Type Labor Labor Length Hrs Delivered By Post Complications Tubal Sterilization Discharge Date Comments 1 Discharge Information Feeding Method Contraceptive Method Maternal HG B and HCT Levels Ob Episode Information Episode Created Date Number of Fetuses Patient Bloodtype Patient rh Status Prepregnancy Weight lbs Domestic Partner Domestic Partner Phone Father Name Filling Layer Up Status 06/09/19 24 1 CLOSED Fetus Data First Name Last Name Admitted to NICU Weight (g) Sex Living Outcome Pediatric Complications Fetus ID Race Codes Race Delivery Type [id number] [id number] M Full Term [id number] Vaginal Delivery Robe Calculation Initial Robe Date Initial Exam Date Initial Exam Provider Initial Ultrasound Date Last Menstrual Period Date Ultra Sound Weeks Gestation 0 Eighteen To Twenty Week Robe Update Ultra Sound Date Fundal Height At Umbil Quickening Date Ultra Sound Latest Weeks Gestation Final Robe Confirmed By Final Robe Confirmed Date Final Robe Date Ultra Sound Latest Days Gestation 0 0 Menstrual History Last Menstrual Date Menses Monthly On Bcp Conception Prior Menses Frequency Hcg Plus Date Menarche Onset Age Delivery Information Delivery Date Delivery Type Labor Anesthesia Weeks Gestation Incision Type Labor Labor Length Hrs Delivered By Post Complications Tubal Sterilization Discharge Date Comments 8 Discharge Information Feeding Method Contraceptive Method Maternal HG B and HCT Levels
--- OUTSIDE RECORDS SUMMARY | 2024-08-05 14:34 | XMS_ITS | Clinical Summary ---
Author Organization [facility] Address [address] [place] [address] Care Team Providers Care Discharge Planner Name Role Phone Rickey Roberts MD Primary Care Provider [phone] Allergies Active Allergy Reactions Criticality Noted Date Comments Cyclobenzaprine Other (see comment) 03/15/2021 Makes legs and arms jerk Medications HYDROcodone-abi taminophen 10-325 MG tablet Take 1 tablet by mouth every 6 (six) hours as needed for Pain. Active iron polysacch [id number]-GH 150-0.025-1 MG Cap capsule Take 1 capsule by mouth daily. Active vitamin D2, ergocalciferol, 80983 UNITS capsule Take 50,000 Units by mouth. Active metFORMIN 1000 MG tablet Take 1,000 mg by mouth 2 (two) times daily with meals. Active FLUoxetine 20 MG capsule Take 20 mg by mouth daily. Active lisinopril 2.5 MG tablet Take 2.5 mg by mouth daily. Active rOPINIRole 1 MG tablet Take 1 mg by mouth 3 (three) times daily. Active pregabalin 150 MG capsule Take 1 tablet by mouth 2 (two) times daily. Active atorvastatin 20 MG tablet Take 20 mg by mouth nightly at bedtime. Active liraglutide 18 MG/3ML injection Inject into the skin daily. Active insulin glargine 100 UNIT/ML injection (PEN) Inject 15 Units into the skin nightly at bedtime. Active Family History Medical History Relation Comments Hypertension Father Relation Status Comments Father Social History Tobacco Use Types Packs/Day Years Used Date Smoking Tobacco: Some Days Cigarettes Smokeless Tobacco: Never Alcohol Use Standard Drinks/Week Comments Not Currently 0 (1 standard drink = 0.6 oz pur e alcohol) Comments No Sex and Gender Information Value Date Recorded Sex Assigned at Not on file Legal Sex Female 7:50 PM CDT Gender Identity Not on file Sexual Orientation Not on file Last Filed Vital Signs Vital Sign Reading Time Taken Comments Blood Pressure 132/68 03/15/2021 9:00 PM CDT Pulse 97 03/15/2021 9:00 PM CDT Temperature 36.4 C (97.5 F) 03/15/2021 5:05 PM CDT Respiratory Rate 18 03/15/2021 9:00 PM CDT Oxygen Saturation 99% 03/15/2021 9:00 PM CDT Inhaled Oxygen Concentration - - Weight 117.9 kg (260 lb) 03/15/2021 5:05 PM CDT Height 165.1 cm (5' 5 ) 04/19/2016 1:14 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 Body Mass Index 43.27 04/19/2016 1:14 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 Plan of Treatment Health Maintenance Due Date Last Done Comments Cervical Cancer Screening Pa p Smear (Age 30 to 64) Every 3 Years 1966 Colorectal Cancer Screening Colonoscopy (10 Years) 1966 Annual Physical 1969 Pneumococcal Vaccine: Pediatrics (0 to 5 Years) and At-Risk Patients (6 to 64 Years) (1 of 2 - PCV) 1972 Hepatitis C 1984 DTaP, Tdap and Td Vaccines ( 1 - Tdap) 1985 Hepatitis B Vaccines (1 of 3 - 19+ 3-dose series) 1985 Cervical Cancer Screening Pa p with HPV Testing (Age 30 to 64) Every 5 Years 1996 Cervical Cancer Screening wi th HPV 1996 Mammogram Screening 2006 Zoster Vaccines (1 of 2) 2016 COVID-19 Vaccine (2023-2 5 season) 2024 08/27/2020, 07/31/2020 Influenza Adult (#1) 2024 04/07/2020 Meningococcal B Vaccine Aged Out No l onger eligible based on patient's age to complete this topic Meningococcal Vaccine Aged Out No carlito lori eligible based on patient's age to complete this topic RSV Immunizations Under 20 Months Aged Out No longer eligible b ased on patient's age to complete this topic Additional Health Concerns Infection Onset Date Last Indicated MRSA Comment: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
--- OUTSIDE RECORDS SUMMARY | 2024-08-05 14:34 | XMS_ITS | Encounter Summary ---
[facility] Address [address] [place] [address] Phone Care Team Providers Care Ornament Stitcher Name Role Phone Rickey Roberts MD Primary Care Provider [phone] Emanuel Huerta MD Primary Care Provid er Encounter Details Date Type Department Care Team (Late st Contact Info) Description 06/04/2021 Orders Only [facility] [address] [place] [address] Scanning, Provider Social History Tobacco Use Types Packs/Day Years Used Date Smoking Tobacco: Every Day AUDIT-C Answer Date Recorded Q1: How often do you have a drink containing alc ohol? 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 Sexual Orientation Not on file documented as of this encounter Plan of Treatment Not on file documented as of this encounter Procedures Procedure Name Priority Date/Time Associated Diagnosis Comments SCAN - RADIOLOGY/IMAGING 06/04/2021 documented in this encounter Results * SCAN - RADIOLOGY/IMAGING (06/04/2021) Anatomical Region Laterality Modality Other us Provider Scanning Edited Result - Final documented in this encounter Visit Diagnoses Not on filedocumented in this encounter Care Teams Ornament Stitcher Relationship Specialty Start Date End Date Rickey Roberts MD [address] [facility] [place] [address] PCP - General Family Medicine 01/15/21 06/15/21 Emanuel Huerta MD [address] [place], [place] [id number] PCP - General Family Medicine 06/16/21 documented as of this encounter
--- NOTE | 2024-08-05 14:40 | ED_ITS ---
HPI - URI/Sore Throat General Chief Complaint: Upper Respiratory Infection Stated Complaint: flu like Time Seen by Provider: 08/05/24 14:40 Source: patient, RN notes reviewed and old records reviewed Mode of arrival: ambulatory Limitations: no limitations History of Present Illness HPI Narrative: patient presents with complaints of body aches and chills accompanied by runny nose. She states that all symptoms began last night. She took an Aleve this morning, otherwise has not had any medication for her symptoms. She denies any fever, chills, sweats. She denies any injury or trauma. She voices no other co ncerns or complaints at this time. She is not in any obvious distress Related Data Home Medications ?Medication ?Instructions ?Recorded ?Confirmed ?Last Taken ?Type atorvastatin 20 mg tablet 20 mg PO DAILY 04/15/23 02/29/24 Unknown History empagliflozin 25 mg tablet 25 mg PO DAILY 04/15/23 02/29/24 Unknown History (Jardiance) fluoxetine 20 mg capsule 20 mg PO DAILY 04/15/23 02/29/24 Unknown History hydrocodone 10 mg-acetaminophen 1 tablet PO QID 04/15/23 02/29/24 Unknown History 325 mg tablet lisinopril 2.5 mg tablet 2.5 mg PO DAILY 04/15/23 02/29/24 Unknown History metformin 1,000 mg tablet 1,000 mg PO BID 04/15/23 02/29/24 Unknown History phentermine 37.5 mg capsule 37.5 mg PO DAILY 04/15/23 02/29/24 Unknown History pregabalin 150 mg capsule 150 mg PO DAILY 04/15/23 02/29/24 Unknown History ropinirole 1 mg tablet 1 mg PO TID 04/15/23 02/29/24 Unknown History semaglutide 7 mg tablet (Rybelsus) 7 mg PO DAILY 02/15/24 02/29/24 Unknown History Allergies Allergy/AdvReac Type Severity Reaction Status Date / Time cyclobenzaprine AdvReac Intermediate RESTLESS Verified 08/05/24 14:53 LEGS adhesive AdvReac Mild Blister Verified 08/05/24 14:53 Review of Systems Review of Systems: All systems reviewed & are unremarkable except as noted in HPI and below Constitutional: Constitutional: Reports no additional constitutional co mplaints, Reports body ache(s), Reports headache(s) and Reports lethargy ENT: Reports system reviewed and no additional complaints, except as documented and Reports nasal congestion Cardiovascular: Cardiovascular: Reports no additional cardiovascular complaints Respiratory: Respiratory: Reports no additional respiratory complaints Gastrointestinal: Gastrointestinal: Reports no additional gastrointestinal complaints [facility] Past Medical History Medical History Fibromyalgia Diabetes Surgical History Surgical History No pertinent past surgical history Family History Family History Mother Family history non-contributory Social History Social History Smoking status: Current every day smoker Second hand tobacco smoke exposure: Yes Alcohol intake: never Substance use: never Substance use type: does not use Do You Feel Safe in your Home?: Yes Lack of Transportation: No Lack of Food: Never True Current Housing: I Have Housing Concerned About Future Housing: No Difficulty Paying Gas/Electric Bills: No Difficulty Paying for Meds: No Currently Unemployed: No Education: High School Diploma/GED Difficulty w/ Childcare or Family Care: No Living arrangements: with family Occupation/Education: unemployed Gender identity (if verbalized by the patient): Female Spiritual care concerns: No Comments At the time of my signature, I reviewed and agree with the nursing past medical, surgical, social, and family history. There is no relevant family history pertinent to the patient complaint. Exam Const: General: cooperative, no acute distress, alert and awake Orientation/consciousness: oriented to person, oriented to place and oriented to time HENMT: Head: normal to inspection Ears: TM's normal bilaterally Mouth: Yes moist mucous membranes Throat: postnasal drainage Resp: Effort & Inspection: normal respiratory effort and able to speak in complete sentences Auscultation: clear to auscultation bilaterally, no crackles, no rales, no rhonchi and no wheezes Cardio: Palpation: normal PMI Rate: regular rate Rhythm: regular rhythm Heart sounds: S1 normal heart sound present and S2 normal heart sound present Neuro: General: oriented to person, oriented to place and oriented to time Cranial nerves: Yes CN's II-XII intact bilaterally Psych: Appearance: grossly normal Thought process: Normal thought process present Insight: Good insight present (Psych) Judgement: Good judgement present (Psych) Course Course Level of Care: Express Care Visit Vital Signs Vital signs: Reviewed MDM - URI/Sore Throat MDM Narrative Medical decision making narrative: negative COVID, negative flu. Possibly too early to peanut picker flu when testing due to short length of symptoms. Discussed supportive care measures with patient who verbalizes understanding. She is nontoxic appearing, stable for discharge home. Discharge instructions reviewed with patient, as well as provided in writing per nursing staff. The instructions also include specific and strict return/GO TO THE ER as well as f/u information. All questions have been answered, and the patient deny any further questions with discharge and discharge plan Some parts of this dictation were generated by voice recognition software and may contain typographical and/or grammatical inaccuracies. Differential Diagnosis Differential diagnosis: Likely upper respiratory infection, otitis media, viral infection and influenza Medical Records Attestation: I reviewed the patient's medical records. Lab Data Attestation: I reviewed the patient's lab results. Discharge Plan Discharge Clinical Impression: Viral infection Patient Disposition: Home, Self-Care Condition: Stable Instructions: Antibiotic Form, Viral Syndrome (ED) Additional Instructions: Use [id number] medications to treat symptoms. Follow package instructions. Follow-up with primary care provider. Emergency department for new or worse symptoms Patient Language: Honduran Prescriptions: No Action atorvastatin 20 mg tablet 20 mg PO DAILY ropinirole 1 mg tablet 1 mg PO TID metformin 1,000 mg tablet 1,000 mg PO BID fluoxetine 20 mg capsule 20 mg PO DAILY lisinopril 2.5 mg tablet 2.5 mg PO DAILY phentermine 37.5 mg capsule 37.5 mg PO DAILY pregabalin 150 mg capsule 150 mg PO DAILY Jardiance 25 mg tablet 25 mg PO DAILY hydrocodone-acetaminophen 10-325 mg tablet 1 tablet PO QID Rybelsus 7 mg tablet 7 mg PO DAILY Follow-up/Referrals: Bradley,Emanuel Singleton MD [Primary Care Provider] - 1 Week Time of Disposition: 15:22
[2024-08-05 15:03] VITALS: BP 112/59; PULSE 95; RESP 18; TEMP 36.4; O2SAT 95
[2024-08-05 15:17] LABS: EDCOVIDSCREEN Negative (Negative)
[2024-08-05 15:18] LABS: EDINFLUASCREEN Negative (Negative); EDINFLUBSCREEN Negative (Negative)
== END 2024-08-05 15:23 | disposition home or self-care (01) ==
PROVIDERS: Emergency Provider Nurse Practitioner Family; PCP Family Medicine
DX: B34.9 Viral infection, unspecified (principal); Z20.822 Contact with and (suspected) exposure to COVID-19; F17.200 Nicotine dependence, unspecified, uncomplicated; E11.9 Type 2 diabetes mellitus without complications; Z79.84 Long term (current) use of oral hypoglycemic drugs; M79.7 Fibromyalgia
CPT/HCPCS: 87426; 87804; 99212; G0463

== ENCOUNTER 2025-03-05 14:27 | Outpatient (CLI) | payer OTHER, SELFPAY ==
--- NOTE | ~2025-03-05 | XR_ITS ---
EXAMINATION: XR knee RT 3V, 03/05/2025 14:50 CDT HISTORY: knee pain COMPARISON: No comparisons available. Findings: No acute fracture or malalignment. Severe tricompartmental degenerative changes with small effusion Soft tissues unremarkable. Impression: No acute fracture or malalignment. Reviewed, dictated and finalized at location P. Impression: No acute fracture or malalignment.
--- NOTE | ~2025-03-05 | XR_ITS ---
EXAMINATION: XR knee LT 3V, 03/05/2025 14:50 CDT HISTORY: knee pain COMPARISON: No comparisons available. Findings: No acute fracture or malalignment. Prosthesis intact Soft tissues unremarkable. Impression: No acute fracture or malalignment. Reviewed, dictated and finalized at location P. Impression: No acute fracture or malalignment.
--- OUTSIDE RECORDS SUMMARY | 2025-03-05 15:26 | XMS_ITS | Clinical Summary ---
Author Organization [facility] Address [address] [place] [address] Care Team Providers Care Reel Tender Name Role Phone Emanuel Huerta MD Primary Care Provider [phone] Source Comments [facility],non-owned Affiliates and Associated Physician Practices is amultiple site organization consisting of ambulatory clinics and hospital sitesin [place], [place], [place] and [place]. This disclosure is being madepursuant to the Care Everywhere program and may not contain all information available regarding this patient. Last updated 18.[facility] Allergies Active Allergy Reactions Criticality Noted Date Comments Cyclobenzaprine Other 02/12/2019 Spasms , makes RLS worse Pcca Plasticized Base Rash Medium 02/12/2019 Gets hives and rash Medications * Be aware that medications may not be up to date on this document. Alwaysverify current medications with the patient. rOPINIRole (REQUIP) 1 MG tablet Take 1 (one) tablet by mouth 3 times daily Active FLUoxetine (PROZAC) 20 MG capsule Take 1 (one) capsule by mouth once daily 9 Active lisinopril (PRINIVIL; ZESTRIL) 2.5 MG tablet Take 1 (one) tablet by mouth once daily 0 Active atorvastatin (LIPITOR) 20 MG tablet Take 1 (one) tablet by mouth once daily 0 Active pregabalin (LYRICA) 150 MG capsule Take 1 (one) capsule by mouth 2 times daily 0 Active HYDROcodone-abi taminophen (NORCO) 10-325 MG tablet Take 1 (one) tablet by mouth every 6 hours as needed for Pain Active metFORMIN (GLUCOPHAGE) 1000 MG tablet Take 1 (one) tablet by mouth daily with breakfast Active empagliflozin (JARDIANCE) 25 MG tablet Take 1 (one) tablet by mouth Active Multiple Vitamins-Minera ls (CENTRUM VITAMINTS PO) Take 1 tablet by mouth 2 times daily Active Biotin 5000 MCG Take by mouth once daily Active CALCIUM CITRATE 600 mg TABS tablet Take by mouth 2 times daily Active nystatin (Mycostatin) 204590 UNIT/GM ointment Apply to affected area 2 times daily 5 Active bisacodyl EC 5 MG tablet At 4 pm take 2 tabs with 8 oz of water and then at 8 pm take 2 tabs with 8 oz of water 4 tablet 5 Active Additional Information Patient not taking.Reported on 01/04/2025 polyethylene glycol 3350 (Miralax) 17 GM/SCOOP powder 8.3 oz bottle (238 gm). Mix with 64 oz clear liquid for colonoscopy prep 238 g 5 Active Additional Information Patient not taking.Reported on 01/04/2025 Ozempic, 0.25 or 0.5 MG/DOSE, 2 MG/3ML SOPN INJECT 0.25 MG UNDER THE SKIN EVERY 7 DAYS 5 Active acetaminophen (Tylenol) 325 MG tablet Take 2 (two) tablets by mouth every 6 hours as needed 5 Active methocarbamol (Robaxin) 500 MG tablet Take 1 (one) tablet by mouth 3 times daily as needed Active Active Problems Problem Noted Date Diagnosed [...] Encounters Date Type Department Care Team Description 02/13/2025 Telephone [facility] [address] [place] [address] Judy Choi MD Scheduling (COL) 01/21/2025 Telephone [facility] [address] [place] [address] Judy Choi MD Scheduling (COL) 01/04/2025 11:30 AM CDT Video Visit [facility] [address] [place] [phone] Sabina Molina APRN-CONRAD S/P laparoscopic sleeve gastrectomy ; Morbid obesity with body mass index (BMI) of 40.0 to 44.9 in adult (HCC); Type 2 diabetes mellitus with other specified complication, unspecified whether terminal system operator insulin use (HCC); Vitamin D deficiency; Hyperlipidemia, unspecified hyperlipidemia type from Last 3 Months Immunizations Immunization Administration Dates Next Due Covid [address] primary monoval ent 12+ yr 0.3mL Purple [...] Date Recorded Patient Health Questionnaire-2 Score 0 01/04/2025 Comments No Sex and Gender Information Value Date Recorded Sex Assigned at Not on file Legal Sex Female 8:46 AM CDT Gender Identity Not on file Sexual Orientation Not on file Last Filed Vital Signs Vital Sign Reading Time Taken Comments Blood Pressure 116/60 10/27/2022 12:10 PM CDT Pulse 75 10/27/2022 12:10 PM CDT Temperature 36.8 C (98.2 F) 10/27/2022 11:55 AM CDT Respiratory Rate 16 10/27/2022 11:55 AM CDT Oxygen Saturation 97% 10/27/2022 12:10 PM CDT Inhaled Oxygen Concentration - - Weight 113.9 kg (251 lb) 01/04/2025 11:00 AM CDT per patient Height 163.8 cm (5' 4.5) 01/04/2025 11:00 AM CD T Body Mass Index 42.42 01/04/2025 11:00 AM CDT Plan of Treatment Health Maintenance Due Date Last Done Comments CT COLONOGRAPHY - COLON CA SCREENING 1966 FIT - COLON CA SCREENING 1966 FLEX SIG - COLON CA SCREENING 1966 HIV SCREENING 1981 DTAP/TDAP/TD VACCINES (1 - Tdap) 1985 HEPATITIS B VACCINE (1 of 3 - 19+ 3-dose series) 1985 PNEUMOCOCCAL VACCINE 50+ (1 of 2 - PCV) 1985 LUNG CANCER SCREENING 2016 ZOSTER VACCINE (1 of 2) 2016 DIABETES RETINOPATHY SCREENING 04/30/2019 DIABETES-FOOT EXAM WITH MONOFILAMENT 04/30/2019 DIABETES - URINE PROTEIN SCREENING 05/30/2024 MAMMOGRAM 06/10/2024 06/10/2022, 06/10/2022 COLON MONITORING 06/11/2024 06/11/2019 Colorectal Cancer Screening 06/11/2024 DIABETES-SERUM CREATININE 08/30/20242023, 03/15/2021, 03/15/2021, Additional history exists DIABETES-HGB A1C 01/02/2025 07/05/2024, 04/2024, 08/31/2023, Additional history exists COVID-19 VACCINE ( season) 2025 08/27/2020, 07/31/2020 INFLUENZA VACCINE (#1) 2025 , 02/26/2022, 04/07/2020 COLOGUARD (AGES 45-75) - COLON CA SCREENING 02/04/2026 02/04/2023 PAP SMEAR 06/09/2026 06/09/2023, 06/09/2023 COLONOSCOPY - COLON CA SCREENING 06/11/2029 06/11/2019 DEPRESSION SCREENING Completed 09/19/2024, 01/04/20 24 HEPATITIS C SCREENING Completed 11/14/2024 HIB VACCINE Aged Out No longer eligi ble based on patient's age to complete this topic HPV VACCINE Aged Out No longer eligi ble based on patient's age to complete this topic MENINGOCOCCAL (Group B) VACCINE SHARED DECISION-MAKING Aged Out No longer eligible based on patient's age to complete this topic MENINGOCOCCAL GROUPS A/C/Y/W VACCINE Aged Out No longer eligible based on patient's age to complete this topic Procedures Procedure Name Priority Date/Time Associated Diagnosis Comments COMPREHENSIVE METABOLIC PANEL Routine 08/31/2023 Morbid obesity with body mass index (BMI) of 40.0 to 44.9 in adult S/P laparoscopic sleeve gastrectomy Intestinal malabsorption following gastrectomy HEMOGLOBIN A1C Routine 08/31/2023 Morbid obesity with body mass index (BMI) of 40.0 to 44.9 in adult S/P laparoscopic sleeve gastrectomy Type 2 diabetes mellitus with other specified complication, unspecified whether terminal system operator insulin use Intestinal malabsorption following gastrectomy from Last 3 Months or Most Recently Relevant to Health Maintenance Results * HEMOGLOBIN A1C (08/31/2023) Blood BLOOD SPECIMEN WITH EDTA / Unknown 08/31/2023 us Maria De Jesus Mcelroy WEIGHT RECORDER-NURSING PROGRAM DIRECTOR LAB - CHEMISTRY ORDERABL ES Final Result OTHER LAB * COMPREHENSIVE METABOLIC PANEL (08/31/2023) Blood BLOOD SPECIMEN / Unknown 08/31/2023 Maria De Jesus Mcelroy WEIGHT RECORDER-NURSING PROGRAM DIRECTOR LAB - CHEMISTRY ORDERABL ES Final Result OTHER LAB from Last 3 Months or Most Recently Relevant to Health Maintenance Insurance [facility] Advance Directives Documents on File Type Date Recorded 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
--- OUTSIDE RECORDS SUMMARY | 2025-03-05 15:26 | XMS_ITS | Clinical Summary ---
Author Organization [facility] Address [address] [place] [address] Care Team Providers Care Collection Administrator Name Role Phone Maria Antonia Thurston Primary Care Provider + Allergies Active Allergy Reactions Criticality Noted Date Comments Adhesive Other (See comments) Low 06/05/2021 Artificial Plasticizer Unknown 06/05/2021 Cyclobenzaprine Other (See comments) Low 02/12/2019 Spasms , makes RLS worse Duloxetine Other (See comments) 02/26/2025 Undesirable mood changes, worsening pain, fatigue, weight gain Medications multivitamin capsuleIndication s:Vitamin Deficiency Take 1 capsule by mouth 2 (two) times a day Active calcium carbonate/vitamin D3 (CALCIUM 600 + D,3, ORAL)Indications: supplement Take 1 capsule by mouth 2 (two) times a day. Indications: supplement Active biotin 10,000 mcg capsuleIndication s:Biotin Deficiency Take 1 capsule (10,000 mcg total) by mouth daily Active blood glucose diagnostic (OneTouch Verio test strips) strip OneTouch Verio test strips Active blood-glucose meter misc OneTouch Verio Meter Active lancets 33 gauge misc OneTouch Delica Plus Lancet 33 gauge Active clobetasoL (TEMOVATE) 0.05 % creamIndications: Dyshidrotic eczema Apply topically 2 (two) times a day 60 g 2 023 Active pen needle, diabetic (TRUEplus Pen Needle) 31 gauge x 5/16 needle TRUEplus Pen Needle 31 gauge x 5/16 Active blood glucose diagnostic (True Metrix Glucose Test Strip) strip Ac tive mupirocin (BACTROBAN) 2 % ointment APPLY TOPICALLY TO THE AFFECTED AREA THREE TIMES DAILY 22 g 2 025 Active acetaminophen (TYLENOL) 325 mg tablet Take 2 tablets (650 mg total) by mouth every 6 (six) hours as needed for pain 180 tablet 2 025 Active pregabalin (LYRICA) 150 mg capsule Take 1 capsule (150 mg total) by mouth 2 (two) times a day 60 capsule 2 025 Active rOPINIRole (REQUIP) 1 mg tablet Take 1 tablet (1 mg total) by mouth 3 (three) times a day 90 tablet 5 025 Active metFORMIN (GLUCOPHAGE) 1,000 mg tablet Take 1 tablet (1,000 mg total) by mouth 2 (two) times a day with meals 60 tablet 1 025 Active atorvastatin (LIPITOR) 20 mg tabletIndications :Hyperlipidemia, unspecified hyperlipidemia type TAKE 1 TABLET(20 MG) BY MOUTH EVERY NIGHT 90 tablet 025 Active semaglutide (OZEMPIC) 1 mg/dose (4 mg/3 mL) pen injector injectionIndicati ons:Type 2 diabetes mellitus with polyneuropathy (HCC) Inject 1 mg under the skin every 7 days 025 Active methocarbamoL (ROBAXIN) 500 mg tabletIndications :Other chronic pain TAKE 1 TABLET(500 MG) BY MOUTH THREE TIMES DAILY NEEDED FOR MUSCLE SPASMS 60 tablet 025 Active nystatin ointment Apply topically 2 (two) times a day 30 g 2 025 Active Jardiance 25 mg tabletIndications :Uncontrolled type 2 diabetes mellitus with hyperglycemia (HCC) TAKE 1 TABLET(25 MG) BY MOUTH DAILY 30 tablet 5 025 Active FLUoxetine (PROzac) 20 mg capsule Take 1 capsule (20 mg total) by mouth daily 025 Active HYDROcodone-aceta minophen (NORCO) 5-325 mg per tabletIndications :Pain Take 1 tablet by mouth every 8 (eight) hours as needed for pain 90 tablet 025 Active nystatin ointment Apply topically 2 (two) times a day 025 2024 Discontinued(R eorder) empagliflozin (Jardiance) 25 mg tabletIndications :Uncontrolled type 2 diabetes mellitus with hyperglycemia (HCC) Take 1 tablet (25 mg total) by mouth daily 30 tablet 5 025 2024 Discontinued methocarbamoL (ROBAXIN) 500 mg tabletIndications :Other chronic pain Take 1 tablet (500 mg total) by mouth 3 (three) times a day as needed for muscle spasms 60 tablet [address] (CYMBALTA) 30 mg capsule Take 1 capsule (30 mg total) by mouth daily 30 capsule 5 025 2024 Discontinued(D uplicate order) semaglutide (Ozempic) 0.25 mg or 0.5 mg (2 mg/3 mL) pen injector injection Inject 0.5 mg under the skin every 7 days 025 2024 Discontinued(D uplicate order) HYDROcodone-aceta minophen (NORCO) 7.5-325 mg per tabletIndications :Pain Take 1 tablet by mouth every 8 (eight) hours as needed for pain 90 tablet 025 2024 Discontinued(D uplicate order) Active Problems Problem Noted Date Diagnosed Date Morbid obesity with BMI of 40.0-44.9, adult 12/2024 Assessment & Plan (12/04/2024 1:56 PM CDT): BMI Follow-up includes: Weight loss with GLP-1 medications. Monitor Ear pain 10/18/2022 Assessment & Plan (10/18/2022 8:42 AM CDT): Will send Augmentin to patient pharmacy. Patient instructed to follow up with PCP if any worsening symptoms. Patient verbalized understanding and agreed to plan of care at this time. Osteoarthritis 06/05/2021 Adrenal adenoma 04/06/2021 Primary osteoarthritis of left knee 02/05/2021 Overview (02/05/2021): Added automatically from request for surgery [id number] Gastroesophageal reflux disease without esophagi tis 12/31/2020 Thyroid nodule 07/15/2020 S/P laparoscopic sleeve gastrectomy 01/17/2020 Type 2 diabetes mellitus with polyneuropathy Assessment & Plan (12/04/2024 1:56 PM CDT): Chronic, not well controlled Blood sugar levels improved to 128 mg/dL. Discussed Ozempic's weight loss benefits for joint pressure and pain relief. - Continue Ozempic 0.25 mg weekly with monthly titration until glucose and weight loss goals achieved/maximized. - Continue metformin 1000 mg twice daily. - Continue Jardiance 25 mg daily. - Recheck metabolic panel, A1c, and uACR in a few weeks - Adjust Ozempic dosage as needed after four weeks based on tolerance and blood sugar control. Orders: Comprehensive metabolic panel; Future Hemoglobin A1c; Future Albumin Creatinine Ratio, Urine; Future Assessment & Plan (11/02/2024 4:31 PM CDT): We can continue the Lyrica 150 mg b.i.d. for now. I believe the patient has neuropathy will improve with improved adherence. I spent a very long time during this visit discussing with the patient's the importance of close follow-up for her diabetes. She endorses that she is not the best patient in regards to this. 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 I will also add on labs to evaluate for possible rheumatologic diseases. I will switch her from Rybelsus to Ozempic. We should titrate her aggressively q.4 weeks until the maximal dose. Orders: CBC with auto differential; Future Comprehensive metabolic panel; Future Lipid panel; Future Hepatitis B Surface Antigen Blood; Future Hepatitis C antibody Blood; Future Rheumatoid factor; Future RANI ab ql w/rflx to RANI qn; Future Erythrocyte sedimentation rate; Future Iron profile w/ IBC; Future Hyperlipidemia 06/20/2019 Assessment & Plan (12/04/2024 1:56 PM CDT): Chronic, stable condition. Reviewed labs Consider statin - will discuss at future visit Chronic pain 06/13/2019 Assessment & Plan (12/04/2024 1:56 PM CDT): Chronic Pain Widespread pain, especially in shoulder and knee. Tapering opioids. Possible fibromyalgia. Advised against THC gummies with hydrocodone. - Prescribe methocarbamol, three times a day as needed, focus on nighttime use. - Change hydrocodone to 7.5 mg every six hours as needed, up to four times a day. - Sign updated controlled substance agreement. - Consider changing fluoxetine to duloxetine Orders: methocarbamoL (ROBAXIN) 500 mg tablet; Take 1 tablet (500 mg total) by mouth 3 (three) times a day as needed for muscle spasms HYDROcodone-acetaminophen (NORCO) 7.5-325 mg per tablet; Take 1 tablet by mouth every 6 (six) hours as needed for pain Depressive disorder 06/13/2019 Knee pain 06/07/2016 Assessment & Plan (12/04/2024 1:56 PM CDT): Knee Pain Severe pain with tricompartmental arthritis of the right knee. Advised knee replacement contingent on weight loss. - Monitor knee pain and assess response to methocarbamol. - Encourage weight loss to facilitate knee replacement surgery. Orders: HYDROcodone-acetaminophen (NORCO) 7.5-325 mg per tablet; Take 1 tablet by mouth every 6 (six) hours as needed for pain Assessment & Plan (11/02/2024 4:31 PM CDT): She follows with ortho Resolved Problems Problem Noted Date Diagnosed Date Resolved Date Fibromyalgia 06/13/2019 12/04/2024 Assessment & Plan (11/02/2024 4:31 PM CDT): Not clearly delineated, needs rule out of other chronic pain syndromes prior to direct treatment of this. The patient definitely does have comorbid anxiety/depression. Control of this could likely be helpful in the future. She can likely benefit from a switch from fluoxetine 20 mg 2 duloxetine 30 mg q.d. taper upwards to b.i.d.. I will leave this adjustment for the new PCP. I think that a dual control of her neuropathic pains can help her with her nerves. The patient should cessation from opiates. I discussed with her a wean protocol. She should go to 10 mg t.i.d. then 7.5 mg t.i.d. which we can write. Then 5 mg t.i.d. to b.i.d. to q.d.. This should be done on a monthly basis given the length of time that she has been on opiates. However encouraged the patient to decrease her opiate use sooner rather than later. If weaning down on her opiates does not improve her pain control substantially. The patient can be started on tizanidine/methocarbamol as part of her pain medication regimen. Methocarbamol and tizanidine are both especially effective for fibromyalgia. If the patient does have elevated ESR, rheumatoid factor or RANI or other concerning features for autoimmune disease. I think she could possibly benefit from a consultation from Rheumatology. Neuropathy 06/13/2019 12/04/2024 Assessment & Plan (11/02/2024 4:31 PM CDT): Consider an SNRI for future Encounters Date Type Department Care Team Description 02/27/2025 Letter (Out) [address] [phone] 02/27/[address] [address] Maria Antonia Thurston PA 02/26/2025 3:00 PM CDT Office Visit [address] [phone] Maria Antonia Thurston PA Screening mammogram for breast cancer (Primary Dx); Morbid obesity with BMI of 40.0-44.9, adult (HCC); Other chronic pain; Adrenal mass, left; Type 2 diabetes mellitus with polyneuropathy (HCC); Adenoma of left adrenal gland; Chronic pain of right knee; Depressive disorder; Sore throat 02/19/[address] [address] Maria Antonia Thurston PA 02/11/[address] [address] Maria Antonia Thurston PA Prior Auth Request for Ozempic 01/29/2025 Orders Only [address] [phone] Maria Antonia Thurston PA Other chronic pain; Chronic pain of right knee 01/29/[address] [phone] Maria Antonia Thurston PA Med Refill 01/17/2025 2:30 PM CDT Office Visit [address] [phone] Maria Antonia Thurston PA Type 2 diabetes mellitus with polyneuropathy (HCC) (Primary Dx); Chronic pain of both knees; Fibromyalgia; Morbid obesity with BMI of 40.0-44.9, adult (HCC); Depressive disorder; Screening mammogram for breast cancer 01/17/2025 Results Follow-Up [address] [phone] Maria Antonia Thurston PA Comprehensive metabolic panel, Hemoglobin A1c, Albumin Creatinine Ratio, Urine 01/10/[address] [phone] Effie Alejo 01/01/[address] [phone] Maria Antonia Thurston PA 12/04/2024 12:30 PM CDT Office Visit [address] [phone] Maria Antonia Thurston PA Type 2 diabetes mellitus with polyneuropathy (HCC) (Primary Dx); Hyperlipidemia, unspecified hyperlipidemia type; Other chronic pain; Morbid obesity with BMI of 40.0-44.9, adult (HCC); Acute pain of left shoulder; Chronic pain of right knee from Last 3 Months Immunizations Immunization Administration Dates Next Due Influenza, Quadrivalent, Spl it, Preservative Free, Intramuscular 04/27/2023,02/26/2022,04/07/2020 Influenza, Unspecified 02/28/2024(Deferr ed: Patient decision),02/28/2024(Deferred: Patient decision),02/27/2021(Deferred: Patient Refused) ZOSTER Recombinant 03/26/2023 Surgical History Surgery Date Site/Laterality Comments CARPAL TUNNEL RELEASE Right GASTRIC BYPASS TUBAL LIGATION 1987 KNEE SURGERY Left knee replacement HERNIA REPAIR 1970 JOINT REPLACEMENT 12/31/20 BARIATRIC SURGERY 01/01/20 Medical History Medical History Date Comments Hx Other Medical Gastric Reflux Depression Depression Hx Other Medical Headache, migra ine Diabetes mellitus Diabetes melli tus Hypertension Type 2 diabetes mellitus Sleep apnea 2008 Headache Restless leg syndrome Osteoporosis Thyroid disease Menstrual problem Arthritis Autoimmune disease Migraines 1979 Fibromyalgia 06/13/2019 Family History Medical History Relation Name Comments Alcohol abuse Brother Gray Cancer Brother Gray Hypertension Father Jordan Stroke Father Jordan Alzheimer's disease Mother Thu Vision loss Mother Thu Hypertension Other 1 Family history of Hypertension; Seizures Other 2 Family history of Seizure disorder; Stroke Other 3 Family history of Stroke; Relation Name Status Comments Brother Gray Alive Father Jordan Alive Mother Thu Alive Other 1 Other 2 Other 3 Social History Tobacco Use Types Packs/Day Years Used Date Smoking Tobacco: Every Day Cigarettes 0.8 43.8 Started: 1981 Smokeless Tobacco: Never Tobacco Cessation:Ready to Q uit: Not Asked; Counseling Given: Not Answered Alcohol Use Standard Drinks/Week Comments Never 0 (1 standard drink = 0.6 oz pur e alcohol) PHQ-2 Answer Date Recorded PHQ-2 Total Score (If total score is 3 or more points, staff should administer the PHQ-9) 0 02/26/2025 AUDIT-C Answer Date Recorded Q1: How often do you have a drink containing alcohol? Never 02/26/2025 Q2: How many drinks containi ng alcohol do you have on a typical day when you are drinking? Patient does not drink Q3: How often do you have si x or more drinks on one occasion? Never 02/26/2025 Comments No Sex and Gender Information Value Date Recorded Sex Assigned at Not on file Legal Sex Female 3:23 AM [employer] Gender Identity Female 05/29/2021 11:17 AM [employer] Sexual Orientation Not on file Obstetrics History Para Term AB IAB SAB Ectopic Multiple Livin g Live Births 2 2 2 Date Outcome GA Total Labor Labor/2nd/3rd Weight Sex Type Anes PTL Gela A1 A5 Name Clin Term Term Last Filed Vital Signs Vital Sign Reading Time Taken Comments Blood Pressure 118/60 02/26/2025 2:55 PM CDT Pulse 86 02/26/2025 2:55 PM CDT Temperature 36.8 C (98.3 F) 02/26/2025 2:55 PM CDT Respiratory Rate 16 02/26/2025 2:55 PM CDT Oxygen Saturation 98% 02/26/2025 2:55 PM CDT Inhaled Oxygen Concentration - - Weight 113.4 kg (250 lb 1.6 oz) 02/26/2025 2:55 PM CDT Height 165.1 cm (5' 5) 02/26/2025 2:55 PM CDT Body Mass Index 41.62 02/26/2025 2:55 PM CDT Plan of Treatment Health Maintenance Due Date Last Done Comments Dilated Eye Exam 1966 DTaP/Tdap/Td Vaccine (1 - Tdap) 1977 Hepatitis B Screening 1984 Pneumococcal vaccine <65 (1 of 2 - PCV) 1985 Lung Cancer Screening 2016 Cervical Cancer Screening 09/27/2021 09/27/2018 Zoster Vaccine (2 of 2) 05/21/2023 03/26/2023 Breast Cancer Screening-Mammogram 06/10/2023 023 Covid-19 Vaccine (2024-2 6 season) 2025 03/26/2023, 03/08/2022, 05/21/2021, Additional history exists Influenza Vaccine (#1) 2025 3, 02/26/2022, 04/07/2020 Foot Exam 07/05/2025 07/05/2024, 02/0 10/2024, 11/09/2023, Additional history exists Regular Well Visit/Exam 18-64 07/05/2025, 07/05/2024, 04/27/2023, Additional history exists Hemoglobin A1C 07/19/2025 01/16/2025, 02/0 10/2024, 11/09/2023, Additional history exists Lipid Panel 11/14/2025 11/14/2024, 0407/2023, 11/04/2022, Additional history exists Albumin Creatinine Ratio, Urine 01/16/2026 01/16/2025, 11/09/2023, 11/04/2022, Additional history exists eGFR 01/16/2026 01/16/2025, 10/28, 11/04/2022, Additional history exists Colon Cancer Screening-DNA Stool 02/04/2026 02/05/20 23 Depression Screening 02/26/2026 02/26/2025, 12/04/2024, 11/02/2024, Additional history exists Hepatitis C Screening Completed 11/14/2024 Medical Devices Implanted Type Area Batch Dumper Device Identifier Shelf Expiration Date Model / Serial / Lot [employer] 5517-F-401 Triathlon Cruciate Retain Bead Knee Left 4 Component Femoral Pa - [id number] Implanted:Qty: 1 on 02/24/2021 by Sandoval Adorno MD at [facility] Left: Knee [employer] 10/03/2025 5517-F-401 / / [id number] [employer] 5536-B-400 Triathlon Coated Knee 4 Baseplate Tibial Tritanium Sterile - [id number] Implanted:Qty: 1 on 02/24/2021 by Sandoval Adorno MD at [facility] Left: Knee [employer] 10/08/2025 5536-B-400 / / [id number] [employer] 5552-L-350 Tritanium 35mm 10mm Asymmetric Knee Component Patellar Metal - [id number] Implanted:Qty: 1 on 02/24/2021 by Sandoval Adorno MD at [facility] Left: Knee [employer] 07/14/2025 5552-L-350 / / [id number] Triathlon Cs Insert #4 11mm Implanted:Qty: 1 on 02/24/2021 by Sandoval Adorno MD at [facility] Knee [employer] 03/20/2025 5531-G-411 -E / [id number] / [id number] Description:[facility] ITEM# [id number] IS ACTIVE PER [employer] DASHBOARD CHARGE CODE ASSIGNED 485089 COST EA.596.41 EA Procedures Procedure Name Priority Date/Time Associated Diagnosis Comments ALBUMIN CREATININE RATIO, URINE Routine 01/16/2025 1:02 PM CDT Type 2 diabetes mellitus with polyneuropathy (HCC) HEMOGLOBIN A1C Routine 01/16/2025 1:02 PM CDT Type 2 diabetes mellitus with polyneuropathy (HCC) COMPREHENSIVE METABOLIC PANEL Routine 01/16/2025 1:02 PM CDT Type 2 diabetes mellitus with polyneuropathy (HCC) HEPATITIS C ANTIBODY Routine 11/14/2024 9:15 AM CDT LIPID PANEL Routine 11/14/2024 9:15 AM CDT STOOL DNA COLOGUARD Routine 02/04/2023 8:45 PM CDT Colon cancer screening SCREENING MAMMOGRAM BILATERAL W AMBER Schedule Routine, Read Routine (OP Routine) 06/10/2022 1:19 PM [employer] Encounter for screening mammogram for malignant neoplasm of breast HM PAP SMEAR Routine 09/27/2018 from Last 3 Months or Most Recently Relevant to Health Maintenance Results * Albumin Creatinine Ratio, Urine (01/16/2025 1:02 PM CDT) Creatinine, ur 64 20 - 275 mg/dL [facility] Microalbumin, ur 1.0 See Note: mg/dL [facility] Comment: Reference Range: Reference Range Not established Microalbumin/creat ratio 16 <30 mg/g creat [facility] Comment: The ADA defines abnormalities in albumin excretion as follows: Albuminuria Category Result (mg/g creatinine) Normal to Mildly increased <30 Moderately increased 30-299 Severely increased > OR = 300 The ADA recommends that at least two of three specimens collected within a 3-6 month period be abnormal before considering a patient to be within a diagnostic category. Urine 01/16/2025 1:02 PM CDT 01/16/2025 1:02 PM CDT Maria Antonia ALEXANDER LAB URINE ORDERABLES Fin al Result [facility] [id number] [phone] * (ABNORMAL) Hemoglobin A1c (01/16/2025 1:02 PM CDT) Hgb A1C 8.9(H) <5.7 % of total Hgb [employer]Jamarcus Dye Comment: For someone without known diabetes, a hemoglobin A1c value of 6.5% or greater indicates that they may have diabetes and this should be confirmed with a follow-up test. For someone with known diabetes, a value <7% indicates that their diabetes is well controlled and a value greater than or equal to 7% indicates suboptimal control. A1c targets should be individualized based on duration of diabetes, age, comorbid conditions, and other considerations. Currently, no consensus exists regarding use of hemoglobin A1c for diagnosis of diabetes for children. Blood 01/16/2025 1:02 PM CDT 01/16/2025 1:02 PM CDT Maria Antonia ALEXANDER LAB BLOOD ORDERABLES Fin al Result Performing Organization Address [facility] Co de Phone Number [facility] [address] [place] [address] * (ABNORMAL) Comprehensive metabolic panel (01/16/2025 1:02 PM CDT) Glucose 133(H) 65 - 99 mg/dL [facility] Comment: Fasting reference interval For someone without known diabetes, a glucose value >125 mg/dL indicates that they may have diabetes and this should be confirmed with a follow-up test. BUN 21 7 - 25 mg/dL [facility] Creatinine 0.66 0.50 - 1.03 mg/dL [facility] eGFR 102 > OR = 60 mL/min/1.7 3m2 [facility] BUN/creat ratio SEE NOTE: 6 - 22 (calc) [facility] Comment: Not Reported: BUN and Creatinine are within reference range. Sodium 141 135 - 146 mmol/L [facility] Potassium, pl 4.2 3.5 - 5.3 mmol/L [facility] Chloride 106 98 - 110 mmol/L [facility] CO2 26 20 - 32 mmol/L [facility] Calcium 9.2 8.6 - 10.4 mg/dL [facility] Protein, sr 6.1 6.1 - 8.1 g/dL [facility] Albumin 4.0 3.6 - 5.1 g/dL [facility] GLOBULIN 2.1 1.9 - 3.7 g/dL (calc) [facility] Alb/glob ratio 1.9 1.0 - 2.5 (calc) [facility] Bilirubin, total 0.6 0.2 - 1.2 mg/dL [facility] Alk phos 67 37 - 153 U/L [facility] AST 14 10 - 35 U/L [facility] ALT (SGPT) 13 6 - 29 U/L [facility] Blood 01/16/2025 1:02 PM CDT 01/16/2025 1:02 PM CDT Maria Antonia ALEXANDER LAB BLOOD ORDERABLES Fin al Result [facility] [address] [place] [address] * Hepatitis C antibody (11/14/2024 9:15 AM CDT) Hep C Ab NON-REACTI VE NON-REACT ZENOBIA [facility] Comment: HCV antibody was non-reactive. There is no laboratory evidence of HCV infection. In most cases, no further action is required. However, if recent HCV exposure is suspected, a test for HCV RNA (test code 40486) is suggested. For additional information please refer to http://education.[employer]/faq/YEC79q4 (This link is being provided for informational/ educational purposes only.) 11/14/2024 9:15 AM CDT 11/14/2024 9:17 AM CDT Narrative [facility] - 11/15/2024 3:01 PM CDT FASTING:YES FASTING: YES us Jm Tolentino MD LAB MICROBIOLOGY - GENERAL OR DERABLES Final Result [facility] [address] [place] [phone] * (ABNORMAL) Lipid panel (11/14/2024 9:15 AM CDT) Cholesterol 142 <200 mg/dL [facility] HDL 56 > OR = 50 mg/dL [facility] Triglycerides 183(H) <150 mg/dL [facility] LDL 60 mg/dL (calc) [facility] Comment: Reference range: <100 Desirable range <100 mg/dL for primary prevention; <70 mg/dL for patients with CHD or diabetic patients with > or = 2 CHD risk factors. LDL-C is now calculated using the Jeffery-Begum calculation, which is a validated novel method providing better accuracy than the Friedewald equation in the estimation of LDL-C. Jeffery SS et al. PARVEEN. 2013;310(19): 0451-0957 (http://education.[employer]/faq/SUH881) Chol/HDL ratio 2.5 <5.0 (calc) [facility] Non-HDL, (LDL+VLDL) 86 <130 mg/dL (calc) [facility] Comment: For patients with diabetes plus 1 major ASCVD risk factor, treating to a non-HDL-C goal of <100 mg/dL (LDL-C of <70 mg/dL) is considered a therapeutic option. 11/14/2024 9:15 AM CDT 11/14/2024 9:17 AM CDT Narrative [facility] - 11/15/2024 3:01 PM CDT FASTING:YES FASTING: YES us Jm Tolentino MD LAB BLOOD ORDERABLES Final Re sult [facility] [id number] [phone] * Stool DNA - Cologuard (02/04/2023 8:45 PM CDT) Stool DNA - Cologuard Negative Negative [employer] (CLIA #:[id number]) Comment: NEGATIVE TEST RESULT. A negative Cologuard [...] (Nick Perez al, N Engl J Med 2014;370(14):9658-3506) The normal value (reference range) for this assay is negative. COLOGUARD RE-SCREENING RECOMMENDATION: Periodic colorectal cancer screening is an important part of preventive healthcare for asymptomatic individuals at average risk for colorectal cancer. Following a negative Cologuard result, the [place] [employer] and U.S. Multi-Society Task Force screening guidelines recommend a Cologuard re-screening interval of 3 years. References: [place] [employer] Guideline for Colorectal Cancer Screening: https://www.cancer.org/cancer/ympev-hexfzm-xkcgxz/lvdzujdjf-wtwwiltpi-nzdibhj/ac s-rec ommendations.html.; Gerardo DK, Angle CR, Donal GarciaK, Colorectal Cancer Screening: Recommendations for Physicians and Patients from the U.S. Multi-Society Task Force on Colorectal Cancer Screening , Am J Gastroenterology 2017; 112:6146-2411. TEST DESCRIPTION: Composite algorithmic analysis of stool [...] (Nick Perez al, N Engl J Med 2014;370(14):8836-7495.) Cologuard may produce a false negative or false positive result (no colorectal cancer or precancerous polyp present at colonoscopy follow up). A negative Cologuard test result does not guarantee the absence of CRC or advanced adenoma (pre-cancer). The current Cologuard screening interval is every 3 years. ([place] [employer] and U.S. Multi-Society Task Force). Cologuard performance data in a 10,000 patient pivotal study using colonoscopy as the reference method can be accessed at the following location: [email or web address]/results. Additional description of the Cologuard test process, warnings and precautions can be found at [email or web address]. Stool 02/04/2023 8:45 PM CDT 02/07/2023 3:03 AM CDT us Emanuel Huerta MD LAB BODY FLUIDS AND STOOLS ORDERABLES Final Result [facility] (CLIA #:[id number]) [address] [place] [address] * SCREENING MAMMOGRAM BILATERAL W AMBER (06/10/2022 1:19 PM INSTRUCTOR LOOPING) Anatomical Region Laterality Modality Breast Bilateral Mammography Impressions 06/16/2022 8:47 AM INSTRUCTOR LOOPING BI-RADS ATLAS category (overall): 1 - Negative There is no mammographic evidence of malignancy. A 1 year screening mammogram is recommended. The patient has been or will be contacted. We recommend annual screening mammography for women at average risk of breast cancer beginning at age 40, based on guidelines of the [employer] (ACR Practice Parameter for the Performance of Screening and Diagnostic Mammography) and [place] [employer]. For women with and elevated risk of breast cancer, please refer to the ACR Practice Parameter for specific screening recommendations. The patient will be entered into a reminder system with a target due date of 1 year for her next screening exam. Narrative 06/16/2022 8:47 AM INSTRUCTOR LOOPING SCREENING MAMMOGRAM BILATERAL W AMBER: 06/10/22 The [...] MD IMG MAMMO PROCEDURES Final Result * HM PAP SMEAR (09/27/2018) Historical Provider HEALTH MAINTENANCE Final Result from Last 3 Months or Most Recently Relevant to Health Maintenance Insurance [facility] Advance Directives For more information, please contact: [phone] * Full Code (Latest Code Status on File) Date Activated Date Inactivated Comments 02/24/2021 1:19 PM 02/25/2021 8:31 PM Care Teams Collection Administrator Relationship Specialty Start Date End Date Maria Antonia Thurston PA [address] [id number] PCP - General Family Medicine 12/04/24
--- OUTSIDE RECORDS SUMMARY | 2025-03-05 15:26 | XMS_ITS | Clinical Summary ---
Author Organization [facility] Address [address] [place] [address] Care Team Providers Care Laborer Bituminous Paving Name Role Phone Rickey Roberts MD Primary Care Provider [phone] Allergies Active Allergy Reactions Criticality Noted Date Comments Cyclobenzaprine Other (see comment) 03/15/2021 Makes legs and arms jerk Medications HYDROcodone-abi taminophen 10-325 MG tablet Take 1 tablet by mouth every 6 (six) hours as needed for Pain. Active iron polysacch [id number] 150-0.025-1 MG Cap capsule Take 1 capsule by mouth daily. Active vitamin D2, ergocalciferol, 33550 UNITS capsule Take 50,000 Units by mouth. [...] 5:05 PM CDT Height 165.1 cm (5' 5) 04/19/2016 1:14 PM FINISH SPECIALIST Body Mass Index 43.27 04/19/2016 1:14 PM FINISH SPECIALIST Plan of Treatment Health Maintenance Due Date Last Done Comments Cervical Cancer Screening Pa p Smear (Age 30 to 64) Every 3 Years 1966 Colorectal Cancer Screening Colonoscopy (10 Years) 1966 Annual Physical 1969 Hepatitis C 1984 DTaP, Tdap and Td Vaccines ( 1 - Tdap) 1985 Hepatitis B Vaccines (1 of 3 - 19+ 3-dose series) 1985 Pneumococcal Vaccine: 50+ Years (1 of 2 - PCV) 1985 Cervical Cancer Screening Pa p with HPV Testing (Age 30 to 64) Every 5 Years 1996 Cervical Cancer Screening wi th HPV 1996 Mammogram Screening 2006 Zoster Vaccines (1 of 2) 2016 COVID-19 Vaccine (2024-2 6 season) 2025 08/27/2020, 07/31/2020 Influenza Adult (#1) 2025 04/07/2020 Meningococcal B Vaccine Aged Out No [...] knee 03/18/2021 03/18/2021 Insurance GENERIC - MEDICAID MEDICAID Care Teams Laborer Bituminous Paving Relationship Specialty Start Date End Date Rickey Roberts MD PCP - General FAMILY PRACTICE 03/15/21
--- OUTSIDE RECORDS SUMMARY | 2025-03-05 15:26 | XMS_ITS | Encounter Summary ---
Author Organization [facility] Address [address] [place] [address] Care Team Providers Care Play Writer Name Role Phone Maria Antonia Thurston Primary Care Provider + Encounter Details Date Type Department Care Team (Late st Contact Info) Description 01/17/2025 Results Follow-Up [facility] Family Medicine [address] [address] Maria Antonia Thurston PA [address] [place] [address] [address] [place] [address] Comprehensive metabolic panel, Hemoglobin A1c, Albumin Creatinine Ratio, Urine Social History Tobacco Use Types Packs/Day Years Used Date Smoking Tobacco: Every Day Cigarettes 0.8 43.8 Started: 1980 Smokeless Tobacco: Never Alcohol Use Standard Drinks/Week Comments Never 0 (1 standard drink = 0.6 oz pur e alcohol) PHQ-2 Answer Date Recorded PHQ-2 Total Score (If total score is 3 or more points, staff should administer the PHQ-9) 0 12/04/2024 AUDIT-C Answer Date Recorded Q1: How often do you have a drink containing alcohol? Never 01/17/2025 Q2: How many drinks containi ng alcohol do you have on a typical day when you are drinking? Patient does not drink Q3: How often do you have si x or more drinks on one occasion? 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 Never 01/17/2025 2:49 PM MAKT Leilani Burleson MA Q2: How many drinks containing alcohol do you have on a typical day when you are drinking? Patient does not drink 01/17/2025 2:49 PM CDT Leilani Burleson MA Q3: How often do you have six or more drinks on one occasion? Never 01/17/2025 2:49 PM MAKT Leilani Burleson MA documented as of this encounter Plan of Treatment Not on file documented as of this encounter Visit Diagnoses Not on filedocumented in this encounter Care Teams Play Writer Relationship Specialty Start Date End Date Maria Antonia Thurston PA [address] [facility] [address] [place] [address] PCP - General Family Medicine 12/04/24 documented as of this encounter
--- OUTSIDE RECORDS SUMMARY | 2025-03-05 15:26 | XMS_ITS | Encounter Summary ---
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 Gender Identity Female 05/29/2021 11:17 AM HEARING INSTRUMENT SPECIALIST Sexual Orientation Not on file documented as [...] on filedocumented in this encounter Care Teams Coffee Bar Attendant Relationship Specialty Start Date End Date Rickey Roberts MD [address] [place] [address] PCP - General Family Medicine 01/15/21 06/15/21 Emanuel Huerta MD [address] [place] [address] PCP - General Family Medicine 06/16/21 12/03/24 Maria Antonia Thurston PA [address] [id number] PCP - General Family Medicine 12/04/24 documented as of this encounter
== END 2025-03-05 14:28 | disposition home or self-care (01) ==
DX: M25.561 Pain in right knee (principal); M25.562 Pain in left knee; G89.29 Other chronic pain
CPT/HCPCS: 73562